=== PATIENT | female | born 2000 | race Two or more races ===

== ENCOUNTER 2024-07-02 10:19 | Outpatient (AMB) | payer MEDICAID, SELFPAY ==
--- NOTE | 2024-07-02 10:29 | ACNOTE_ITS ---
Vital Signs 07/02/24 10:30 Height 1.75 m Height Method Stated Weight 108.012 kg Weight Measurement Method Standing Scale BMI 35.2 BP 105/68 Blood Pressure Source Automatic Cuff Blood Pressure Location Left Upper Arm Position Sitting Respiration 18 Pulse 97 Pulse Source Monitor Temp 98.7 F Temp Source Oral Pulse Oximetry (%) 99 Oxygen Delivery Method Room Air Allergies/Meds Allergies & Medications Allergies infliximab-dyyb Allergy (Severe, Verified 07/22/24 14:34) Difficulty Breathing Medication Reconciliation pantoprazole 40 mg granules delayed-release for susp in packet (Protonix) 40 mg PO QDAY #30 ea 05/01/22 [Rx Confirmed 07/02/24] azathioprine 50 mg tablet 50 mg PO QDAY #30 tabs 05/20/24 [Rx Confirmed 07/02/24] folic acid 1 mg tablet 1 mg PO QDAY #30 tabs 05/20/24 [Rx Confirmed 07/02/24] mesalamine 500 mg capsule,extended release (Pentasa) 500 mg PO TID 05/26/24 [History Confirmed 07/02/24] vedolizumab 300 mg intravenous solution (Entyvio) 300 mg IV .[id number] Ulcerative Colitis #1 ea 07/22/24 [Rx] MA Intake Visit Data Collection New Patient or Established: Established Patient (seen at [facility] within 3 years) Seen by Clinical Staff ONLY (RN/MA): No Pain Present Currently: No Pain scale:: 0 Pain Scale Used: Acevedo-Jett/Numerical PCP or OBGYN visit in last 3 months: Yes Do You Feel Safe at Home: Yes Authorities Contacted: N/A Smoking Status Smoking Status: Never smoker Immunization / Flu Flu Vaccine in the Last 12 Months: No Flu Vaccine Exclusion Criteria: No Exclusion Criteria Past Medical History Past Medical History NEUROLOGIC: Negative Neurological Disorders or Seizures CARDIAC: Negative Cardiac Disorders, Myocardial Infarction, Cardiac Arrhythmia, Atrial Fibrillation, Angina, Heart Murmur, Coronary Artery Disease, Atherosclerotic Heart Disease, Peripheral Vascular Disease, Hypercholesterolemia, Aneurysm, Congestive Heart Failure, Congenital Heart Disease, Valvular Heart Disease, Rheumatic Fever, Cardiomyopathy, Edema, Pericarditis, Cellulitis, Deep Vein Thrombosis, Hypertension, Hypotension or Varicose Veins RESPIRATORY: Negative Chronic Obstructive Pulmonary Disease (COPD) or Asthma GASTROINTESTINAL: Positive Gastrointestinal Disorders, Gastrointestinal Bleed, Ulcerative Colitis, Irritable Bowel and Obesity; Negative Hepatitis, Cirrhosis, Pancreatitis, Celiac Disease, Gall Bladder Disease, Esophageal Varices, Hernandez's Esophagus, Colitis, Diverticulitis, Diverticulosis, Ulcer, Colorectal Cancer, Crohn's Disease, Obstructive Bowel, Hiatal Hernia, Hemorrhoids or Gastroesophageal Reflux Disease GENITOURINARY: Negative Genitourinary Disorders, Renal Disease, Kidney Stones, Polycystic Kidney Disease, Neurogenic Bladder, Inguinal Hernia, Dialysis, Prostate Cancer or Benign Prostatic Hyperplasia REPRODUCTIVE: Negative Breast Cancer, Pelvic Inflammatory Disease or Testicular Cancer MUSCULOSKELETAL: Negative Bone Cancer ENT: Negative Cataracts, Glaucoma, Blind, Retinal Detachment, Macular Degeneration, Ear Infection, Deafness or Eye Prosthesis ENDOCRINE: Positive Endocrine Disorders and Hypothyroidism; Negative Diabetes Mellitus Type 1, Diabetes Mellitus Type 2, Hypoglycemia, Grovespring's Syndrome, Cheyenne's Disease, Hyperthyroidism, Parathyroid Disease, Pituitary Disease, Systemic Lupus Erythematosus, Syndrome of Inappropriate Antidiuretic Hormone (SIADH), Adrenal Disease or Graves' Disease HEMATOLOGIC: Positive Blood Disorders and Anemia; Negative Leukemia, Hemophilia, Thalassemia, Sickle Cell Disease or Clotting Problems PSYCHO/SOCIAL: Positive Anxiety OTHER HISTORY: Positive Hospitalization and Blood Transfusions; Negative Down Syndrome, Developmental Delay, Shingles, Falls, Blood Transfusion Reaction, Anesthesia Reactions, Organ Transplant, Chemotherapy, Radiation Therapy, Hyperbaric Therapy, MRSA, VRSA, Vancomycin-Resistant Enterococci, Human Immunodeficiency Virus (HIV), Chicken Pox, Measles, Mumps, Rubella (Mauritian Measles), Pertussis, Clostridium Difficile, Cancer, Breast Cancer, Cervical Cancer, Colorectal Cancer, Lung Cancer, Ovarian Cancer, Prostate Cancer or Testicular Cancer Family History FAMILY HISTORY: Negative Family Psychiatric Problems, Family Respiratory Disorders, Family Cardiac Disorders, Family Gastrointestinal Problems, Family Cancer, Family Surgery or Family Anesthesia Reaction Surgical History SURGICAL: Positive Section; Negative Cardiac Surgery, Pacemaker, Endocrine Surgery, Ear Surgery, Eye Surgery, Nose Surgery, Oral Surgery, Throat Surgery, Abdominal Surgery, Nephrectomy, Transurethral Resection, Joint Replacement, Neurologic Surgery, Brain Shunt, Mastectomy, Lumpectomy, Hysterectomy, Tubal Ligation, Vasectomy or Organ Transplant Social History SMOKING STATUS: Smoking status: Never smoker SECOND HAND EXPOSURE: second hand exposure: No ALCOHOL: Alcohol Intake: Never HOUSING: Housing: House LIVES WITH: Lives With: Spouse Patient Portal [employer] Social History Living Situation History Housing: House Housing Other:: Pt from home Tobacco History Smoking Status: Never smoker Second Hand Smoke Exposure: No Alcohol History Alcohol Intake: Never Domestic Abuse History Do You Feel Safe at Home: Yes Review of Systems Report any current symptoms Only answer those that you have currently: Past Medical History Past Medical History Have you ever been diagnosed with any of the following: Neurological Problems Seizures: No Cardiology Problems Myocardial Infarction: No Cardiac Arrhythmia: No Atrial Fibrillation: No Angina: No Heart Murmur: No Coronary Artery Disease: No Atherosclerotic Heart Disease: No Peripheral Vascular Disease: No Hypercholesterolemia: No Aneurysm: No Congestive Heart Failure: No Congenital Heart Disease: No Valvular Heart Disease: No Rheumatic Fever: No Cardiomyopathy: No Edema: No Pericarditis: No Cellulitis: No Deep Vein Thrombosis: No Hypertension: No Hypotension: No Varicose Veins: No Respiratory Problems Chronic Obstructive Pulmonary Disease (COPD): No Asthma: No Stomache/Intestinal Problems Hepatitis: No Cirrhosis: No Pancreatitis: No Celiac Disease: No Gall Bladder Disease: No Gastrointestinal Bleed: Yes Esophageal Varices: No Hernandez's Esophagus: No Colitis: No Ulcerative Colitis: Yes Diverticulitis: No Diverticulosis: No Ulcer: No Colorectal Cancer: No Irritable Bowel: Yes Crohn's Disease: No Obstructive Bowel: No Hiatal Hernia: No Hemorrhoids: No Gastroesophageal Reflux Disease: No Obesity: Yes Genital/Urinary Problems Renal Disease: No Kidney Stones: No Polycystic Kidney Disease: No Neurogenic Bladder: No Inguinal Hernia: No Dialysis: No Prostate Cancer: No Benign Prostatic Hyperplasia: No Reproductive Problems Breast Cancer: No Pelvic Inflammatory Disease: No Testicular Cancer: No Musculoskeletal Problems Bone Cancer: No Head,Eye,Nose,Throat Problems Cataracts: No Glaucoma: No Blind: No Retinal Detachment: No Macular Degeneration: No Chronic Ear Infections: No Deafness: No Eye Prosthesis: No Endocrine Problems Diabetes Mellitus Type 1: No Diabetes Mellitus Type 2: No Hypoglycemia: No Alla's Syndrome: No Cheyenne's Disease: No Hyperthyroidism: No Hypothyroidism: Yes Parathyroid Disease: No Pituitary Disease: No Systemic Lupus Erythematosus: No Syndrome of Inappropriate Antidiuretic Hormone: No Adrenal Disease: No Graves' Disease: No Blood Problems Anemia: Yes Leukemia: No Hemophilia: No Thalassemia: No Sickle Cell Disease: No Clotting Problems: No Psychologic Problems Anxiety: Yes Other Problems Hospitalization: Yes Down Syndrome: No Developmental Delay: No Shingles: No Falls: No Blood Transfusions: Yes Blood Transfusion Reaction: No Anesthesia Reactions: No Organ Transplant: No Chemotherapy: No Radiation Therapy: No Hyperbaric Therapy: No MRSA: No VRSA: No Vancomycin-Resistant Enterococci: No Human Immunodeficiency Virus (HIV): No Chicken Pox: No Measles: No Mumps: No Rubella (Mauritian Measles): No Pertussis: No Clostridium Difficile: No Cancer: No Cervical Cancer: No Lung Cancer: No Ovarian Cancer: No Surgical History Hysterectomy: No Pacemaker: No History of Present Illness HPI Narrative Patient is a 23-year-old female with a past medical history of UC and chronic anemia who is here to follow-up on labs secondary to a chief complaint of amenorrhea. Patient stated she recently had her menstrual period and was regular. Previous concern for amenorrhea from April to may and nearly time Entyvio infusions began. UC has also improved currently having solid stools with decreased hematochezia. Patient reports solid stools with some blood streaks about once per day. Initial diagnosis of UC in March 2022. [facility] made recent referral for patient for gastroenterology, next appointment 10/2024 in [place]. Patient is concerned as she has not heard back for her next Entyvio infusion. Previous infusion June 09, 2024 which patient completed. Thus patient has completed a total of 4 infusions. Currently being spaced out every 8 weeks. Patient encouraged to follow-up with [facility] and schedule next appointment, 8 weeks from June 09, 2024. Review of Systems Review of Systems Narrative Review of Systems: General appearance: NO weight change, NO fatigue, NO weakness, NO fever, NO chills, NO night sweats, No cough Skin: NO rash, NO itching, NO sores, NO moles HEENT: NO Trauma, NO nausea, NO vomiting, NO visual changes, NO blurry vision, NO double vision, NO tinnitus, NO vertigo, NO ear discharge, NO rhinorrhea, NO stuffiness, NO sneezing, NO allergy, NO epistaxis. NO Hoarseness, NO sore thr oat, NO swollen neck. Cardiac: NO Palpitations, NO dyspnea on exertion, NO orthopnea, NO paroxysmal nocturnal dyspnea, NO edema Respiratory: NO Shortness of Breath, NO Wheezing, NO Cough, NO Sputum, NO hemoptysis GI:NO appetite, NO nausea, NO vomiting, NO dysphagia, NO changes in bowel frequency, NO stool color, NO diarrhea, NO constipation, NO hemetemesis, NO hemorrhoids, NO melena, NO hematechezia, NO abdominal pain, NO jaundice Renal: NO frequency, NO hesitancy, NO urgency, NO hematuria, NO nocturia, NO incontinence MSK: NO muscle weakness, NO gout, NO arthritis, NO muscle stiffness Neuro: NO headaches, NO tremors, NO weakness, NO paralysis, NO seizures, NO loss of consciousness, NO numbness. Hem: NO anemia, NO easy bruising/bleeding, NO petechiae, NO purpura Endo: NO heat/cold intolerance, NO excessive sweating, NO polyuria, NO polydipsia, NO polyphagia, YES thyroid problems-previously on levo, NO diabetes Pysch: NO mood, NO anxiety, NO depression Objective/Exam Narrative Physical exam: Vitals: T 98.7, BP 105/68, HR 97, RR 18, spO2 99 General Appearance: Alert and Orientated x3, well-nourished female who is sitting on exam room Thorax/Lungs: Symmetrical with good expansion. Chest and back non-tender. Lungs resonant to percussion. Breath sounds vesicular without crackles, wheezes, or rhonchi Cardiovascular/Peripheral Vascular: No jugular venous distention noted. S1 and S2 heart sounds regular, no murmurs or extra heart sounds auscultated. No peripheral edema noted. Abdomen: Bowel sounds are active. No tenderness to deep or light palpation. Assessment & Plan Diagnosis / Problem List (1) Ulcerative colitis: Status: Acute Qualifiers: Digestive disease complication type: with rectal bleeding Ulcerative colitis location: other ulcerative colitis Qualified Code(s): K51.811 - Other ulcerative colitis with rectal bleeding Assessment & Plan: Improved symptoms of UC with only streaks of stool vs hematochezia and formed stools now since starting Entyvio, Azathioprine, and Mesalamine. Patient is still taking all medication as prescribed. Patient has had 4 infusions in total with most recent on Jun 09, 2024. Neto working on establishing care with layout mechanic in [facility], scheduled appointment for 10/08/2024. Patient is concerned that new appointment for Entyvio has not been scheduled. Plan: -Scheduled over the phone appointment with Dr. Kaufman to confirm Entyvio, August 2024 -Advised patient to follow up with [facility] and call first to confirm in appointment, please call with update. (2) Amenorrhea: Status: Acute Assessment & Plan: Less likely this is primary amenorrhea as patient has regular periods before and only had about 1.5 months without a regular menstrual cycle which occured near UC flare. Entyvio (Vedolizumab) less likely as this is not a common side effect. Secondary causes such as Pituitary, PCOS vs Prolactinemia less likely as LH, TSH, Testosterone, Prolactin levels all within normal range. Patient does have a previous history of thyroid problems, per patient history was on Levothyroxine at one but discontinued by previous primary care provider. March 2024 reading of elevated TSH (7.960) and TSH (05/21/2024) of 3.340. Follow up with free T4 as hypothyroidism can not be ruled out as a cause of Amenorrhea. Plan: -Free T4 ordered Additional Assessment - The patient's plan was discussed with attending Dr. Anita Morrow MD PGY1 Internal Medicine Attending note: I, Alexis Howard MD, attest that I was physically present for the storey portions of the service and evaluated the patient with the resident and I reviewed and discussed the case with the resident and agree with the resident's findings and plans of care as documented above. Follow-up visit. Patient had menstrual cycle recently which seem normal. Previously had amenorrhea from April to May. This was the time when her Entyvio infusions began. Lab workup for amenorrhea essentially unremarkable though TSH mildly raised at 3.34. We will recheck a free T4. Noting improvement in bowel movements with solid stools and decreased hematochezia. Most recent infusion on June 09, 2024. Next infusion will be 8 weeks from this date. Resident physicians to coordinate with [facility] to ensure that this is given; however, the patient might be able to be transition to Entyvio injections at home. Alexis Howadr MD Physician Billing Established Patient Established Patient: E/M Level 3-CPT 56946 Office Procedures [facility] Level of Care Nursing/Assessment Patient Status: Established Patient Nursing Assessment/Reassessment: Medication Reconciliation, Update PMH in EMR and Vital Signs Coordination of Care: Complex Care and Chronic Disease 1-5, Education Complex Pt/Fam, Results/Orders obtained and Staff clarify orders Established Patient Charge Established Patient Point Assignment: 90 Established Patient Point Charge: Level 3 (80-115)
[2024-07-02 10:30] VITALS: BP 105/68; PULSE 97; RESP 18; TEMP 37.1; O2SAT 99; BMI 35.2
== END 2024-07-02 11:34 | disposition home or self-care (01) ==
LOC: HODAHC 10:19
PROVIDERS: Supervising Provider Internal Medicine
DX: K51.811 Other ulcerative colitis with rectal bleeding (principal); N91.2 Amenorrhea, unspecified
CPT/HCPCS: 99213; G0463

== ENCOUNTER 2024-07-22 14:33 | Outpatient (AMB) | payer MEDICAID, SELFPAY ==
--- NOTE | 2024-07-22 14:34 | ACNOTE_ITS ---
Allergies/Meds Allergies & Medications Allergies infliximab-dyyb Allergy (Severe, Verified 07/22/24 14:34) Difficulty Breathing MA Intake Visit Data Collection New Patient or Established: Established Patient (seen at [facility] within 3 years) Seen by Clinical Staff ONLY (RN/MA): No Pain Present Currently: No Pain scale:: 0 PCP or OBGYN visit in last 3 months: Yes Smoking Status Smoking Status: Never smoker For Televisit only Telemed Video/Phone Visit: Yes Verbal consent obtained for Telemed visit?: Yes Verbal Consent witness name: sheldon Telemed Video/Phone visit w/Clinical Staff: 21-30 min Immunization / Flu Flu Vaccine in the Last 12 Months: No Flu Vaccine Exclusion Criteria: Already Received Past Medical History Past Medical History NEUROLOGIC: Negative Neurological Disorders or Seizures CARDIAC: Negative Cardiac Disorders, Myocardial Infarction, Cardiac Arrhythmia, Atrial Fibrillation, Angina, Heart Murmur, Coronary Artery Disease, Atherosclerotic Heart Disease, Peripheral Vascular Disease, Hypercholesterolemia, Aneurysm, Congestive Heart Failure, Congenital Heart Disease, Valvular Heart Disease, Rheumatic Fever, Cardiomyopathy, Edema, Pericarditis, Cellulitis, Deep Vein Thrombosis, Hypertension, Hypotension or Varicose Veins RESPIRATORY: Negative Chronic Obstructive Pulmonary Disease (COPD) or Asthma GASTROINTESTINAL: Positive Gastrointestinal Disorders, Gastrointestinal Bleed, Ulcerative Colitis, Irritable Bowel and Obesity; Negative Hepatitis, Cirrhosis, Pancreatitis, Celiac Disease, Gall Bladder Disease, Esophageal Varices, Hernandez's Esophagus, Colitis, Diverticulitis, Diverticulosis, Ulcer, Colorectal Cancer, Crohn's Disease, Obstructive Bowel, Hiatal Hernia, Hemorrhoids or Gastroesophageal Reflux Disease GENITOURINARY: Negative Genitourinary Disorders, Renal Disease, Kidney Stones, Polycystic Kidney Disease, Neurogenic Bladder, Inguinal Hernia, Dialysis, Prostate Cancer or Benign Prostatic Hyperplasia REPRODUCTIVE: Negative Breast Cancer, Pelvic Inflammatory Disease or Testicular Cancer MUSCULOSKELETAL: Negative Bone Cancer ENT: Negative Cataracts, Glaucoma, Blind, Retinal Detachment, Macular Degeneration, Ear Infection, Deafness or Eye Prosthesis ENDOCRINE: Positive Endocrine Disorders and Hypothyroidism; Negative Diabetes Mellitus Type 1, Diabetes Mellitus Type 2, Hypoglycemia, Alla's Syndrome, Barren's Disease, Hyperthyroidism, Parathyroid Disease, Pituitary Disease, Systemic Lupus Erythematosus, Syndrome of Inappropriate Antidiuretic Hormone (SIADH), Adrenal Disease or Graves' Disease HEMATOLOGIC: Positive Blood Disorders and Anemia; Negative Leukemia, Hemophilia, Thalassemia, Sickle Cell Disease or Clotting Problems PSYCHO/SOCIAL: Positive Anxiety OTHER HISTORY: Positive Hospitalization and Blood Transfusions; Negative Down Syndrome, Developmental Delay, Shingles, Falls, Blood Transfusion Reaction, Anesthesia Reactions, Organ Transplant, Chemotherapy, Radiation Therapy, Hyperbaric Therapy, MRSA, VRSA, Vancomycin-Resistant Enterococci, Human Immunodeficiency Virus (HIV), Chicken Pox, Measles, Mumps, Rubella (Burkinan Measles), Pertussis, Clostridium Difficile, Cancer, Breast Cancer, Cervical Cancer, Colorectal Cancer, Lung Cancer, Ovarian Cancer, Prostate Cancer or Testicular Cancer Family History FAMILY HISTORY: Negative Family Psychiatric Problems, Family Respiratory Disorders, Family Cardiac Disorders, Family Gastrointestinal Problems, Family Cancer, Family Surgery or Family Anesthesia Reaction Surgical History SURGICAL: Positive Section; Negative Cardiac Surgery, Pacemaker, Endocrine Surgery, Ear Surgery, Eye Ortiz rgery, Nose Surgery, Oral Surgery, Throat Surgery, Abdominal Surgery, Nephrectomy, Transurethral Resection, Joint Replacement, Neurologic Surgery, Brain Shunt, Mastectomy, Lumpectomy, Hysterectomy, Tubal Ligation, Vasectomy or Organ Transplant Social History SMOKING STATUS: Smoking status: Never smoker SECOND HAND EXPOSURE: second hand exposure: No ALCOHOL: Alcohol Intake: Never HOUSING: Housing: House LIVES WITH: Lives With: Spouse Patient Eduardo Bates Social History Living Situation History Housing: House Housing Other:: Pt from home Tobacco History Smoking Status: Never smoker Second Hand Smoke Exposure: No Alcohol History Alcohol Intake: Never Review of Systems Report any current symptoms Only answer those that you have currently: Past Medical History Past Medical History Have you ever been diagnosed with any of the following: Neurological Problems Seizures: No Cardiology Problems Myocardial Infarction: No Cardiac Arrhythmia: No Atrial Fibrillation: No Angina: No Heart Murmur: No Coronary Artery Disease: No Atherosclerotic Heart Disease: No Peripheral Vascular Disease: No Hypercholesterolemia: No Aneurysm: No Congestive Heart Failure: No Congenital Heart Disease: No Valvular Heart Disease: No Rheumatic Fever: No Cardiomyopathy: No Edema: No Pericarditis: No Cellulitis: No Deep Vein Thrombosis: No Hypertension: No Hypotension: No Varicose Veins: No Respiratory Problems Chronic Obstructive Pulmonary Disease (COPD): No Asthma: No Stomache/Intestinal Problems Hepatitis: No Cirrhosis: No Pancreatitis: No Celiac Disease: No Gall Bladder Disease: No Gastrointestinal Bleed: Yes Esophageal Varices: No Hernandez's Esophagus: No Colitis: No Ulcerative Colitis: Yes Diverticulitis: No Diverticulosis: No Ulcer: No Colorectal Cancer: No Irritable Bowel: Yes Crohn's Disease: No Obstructive Bowel: No Hiatal Hernia: No Hemorrhoids: No Gastroesophageal Reflux Disease: No Obesity: Yes Genital/Urinary Problems Renal Disease: No Kidney Stones: No Polycystic Kidney Disease: No Neurogenic Bladder: No Inguinal Hernia: No Dialysis: No Prostate Cancer: No Benign Prostatic Hyperplasia: No Reproductive Problems Breast Cancer: No Pelvic Inflammatory Disease: No Testicular Cancer: No Musculoskeletal Problems Bone Cancer: No Head,Eye,Nose,Throat Problems Cataracts: No Glaucoma: No Blind: No Retinal Detachment: No Macular Degeneration: No Chronic Ear Infections: No Deafness: No Eye Prosthesis: No Endocrine Problems Diabetes Mellitus Type 1: No Diabetes Mellitus Type 2: No Hypoglycemia: No [place]'s Syndrome: No Evans's Disease: No Hyperthyroidism: No Hypothyroidism: Yes Parathyroid Disease: No Pituitary Disease: No Systemic Lupus Erythematosus: No Syndrome of Inappropriate Antidiuretic Hormone: No Adrenal Disease: No Graves' Disease: No Blood Problems Anemia: Yes Leukemia: No Hemophilia: No Thalassemia: No Sickle Cell Disease: No Clotting Problems: No Psychologic Problems Anxiety: Yes Other Problems Hospitalization: Yes Down Syndrome: No Developmental Delay: No Shingles: No Falls: No Blood Transfusions: Yes Blood Transfusion Reaction: No Anesthesia Reactions: No Organ Transplant: No Chemotherapy: No Radiation Therapy: No Hyperbaric Therapy: No MRSA: No VRSA: No Vancomycin-Resistant Enterococci: No Human Immunodeficiency Virus (HIV): No Chicken Pox: No Measles: No Mumps: No Rubella (Burkinan Measles): No Pertussis: No Clostridium Difficile: No Cancer: No Cervical Cancer: No Lung Cancer: No Ovarian Cancer: No Surgical History Hysterectomy: No Pacemaker: No History of Present Illness HPI Narrative HPI: 23-year-old female with past medical history of ulcerative colitis and chronic anemia [facility]U of her UC after her second Entyvio infusion on 04/28/2024. Patient states she is doing better and has noticed an improvement in her symptoms, no side effects until now with Entyvio infusion. She states still having 2 BM over night and around 4-6 BM during the day, but none have been watery or loose. She is due for the next Entyvio infusion on 05/26/2024 and every 8 weeks there after. She also mentioned she has not had a menstrual period since March 23, 2024. She is sexually active with 1 male partner and uses condoms consistently. She also had a previous PAP smear in March in which everything was okay per patient. She endorses some nausea today and abdominal pain whiling having a BM, but states has not had pelvic pain, increased urinary frequency, burning sensation during urination, or new stressors in her life. 07/22/2024: Patient scheduled an appointment for a tele-consult. Patient reported that she has been having multiple bowel movements with fresh bright red blood. Patient stated that she also has experienced abdominal pain with every bowel movement and seen fresh blood in her stool every time from last 2 weeks. Patient also reported that she has to wake up at night more than 3 times for passing bowel movements. She has been also feeling fatigued out. Patient was explained that she would need to call [facility] for getting a hold on her Entyvio infusions as she is due for her next infusion on August 04, 2024. Additionally, we ordered CBC to follow-up and evaluate for blood loss. Will likely follow the CBC results tomorrow. Patient was given a referral for repair welder at [place] for close follow-up. Review of Systems Review of Systems Systems Reviewed: All systems reviewed, normal except as documented Objective/Exam Narrative Physical exam: Phone consult Assessment & Plan Diagnosis / Problem List (1) Ulcerative colitis: Status: Acute Qualifiers: Digestive disease complication type: with rectal bleeding Ulcerative colitis location: other ulcerative colitis Qualified Code(s): K51.811 - Other ulcerative colitis with rectal bleeding Assessment & Plan: #Ulcerative colitis ? Patient has been passing more than 3 bowel movements at night and noticed bright blood in her stool from last 2 weeks. She was also endorsing abdominal pain associated with each bowel movement. She was feeling fatigability and generalized weakness. Plan: ? Prescription for him to be infusion given for August 04, 2024 as patient is due for her next dose ? Patient was advised to follow up with [facility] regarding her into the infusion ? Psychology Physician referral given for GI specialist in [place] ?will likely consider steroid therapy if she is going in flare and will follow- up on CBC ?Continue Entyvio infusion on 05/26/2024 then every 8 weeks ?Continue Pentasa, azathioprine, and protonix -Refilled azathioprine (2) Microcytic hypochromic anemia: Status: Chronic Assessment & Plan: # Microcytic hypochromic anemia ?Last hemoglobin seen on chart review 04/14/2024: 10.6 Plan: ?Follow-up on CBC ordered today. ?Continue folic acid -Refilled folic acid Patient was discussed with attending physician, Dr. Marty Hager MD, PGY 2 Orders: Orders CBC 07/22/24 D50.9 - Iron deficiency anemia, unspecified, K51.811 - Other ulcerative colitis with rectal bleeding Referrals Gastroenterology D50.9 - Iron deficiency anemia, unspecified, K51.811 - Other ulcerative colitis with rectal bleeding Office Procedures [facility] Level of Care Nursing/Assessment Patient Status: Established Patient Nursing Assessment/Reassessment: Medication Reconciliation and Update PMH in EMR Coordination of Care: Complex Care and Chronic Disease 1-5, Education Complex Pt/Fam and Staff clarify orders Established Patient Charge Established Patient Point Assignment: 70 Telehealth Telemed Phone/Video with patient at home & Dr,PA,SIGNAL MAINTAINER HELPER: Yes
== END 2024-07-22 15:41 | disposition home or self-care (01) ==
LOC: HODAHC 14:33
PROVIDERS: Supervising Provider Internal Medicine; Visit Provider Student in an Organized Health Care Education/Training Program
DX: K51.911 Ulcerative colitis, unspecified with rectal bleeding (principal); D50.9 Iron deficiency anemia, unspecified
CPT/HCPCS: 99212; G0463

== ENCOUNTER 2024-08-12 14:28 | Outpatient (AMB) | payer MEDICAID, SELFPAY ==
--- NOTE | 2024-08-12 15:27 | ACNOTE_ITS ---
Allergies/Meds Allergies & Medications Allergies infliximab-dyyb Allergy (Severe, Verified 08/12/24 15:27) Difficulty Breathing Medication Reconciliation pantoprazole 40 mg granules delayed-release for susp in packet (Protonix) 40 mg PO QDAY #30 ea 05/01/22 [Rx Confirmed 08/12/24] azathioprine 50 mg tablet 50 mg PO QDAY #30 tabs 05/20/24 [Rx Confirmed 08/12/24] folic acid 1 mg tablet 1 mg PO QDAY #30 tabs 05/20/24 [Rx Confirmed 08/12/24] mesalamine 500 mg capsule,extended release (Pentasa) 500 mg PO TID 05/26/24 [History Confirmed 08/12/24] vedolizumab 300 mg intravenous solution (Entyvio) 300 mg IV .[id number] Ulcerative Colitis #1 ea 07/22/24 [Rx Confirmed 08/12/24] MA Intake Visit Data Collection New Patient or Established: Established Patient (seen at [facility] within 3 years) Seen by Clinical Staff ONLY (RN/MA): No Pain Present Currently: No Pain scale:: 0 Pain Scale Used: Acevedo-Jett/Numerical Campground Caretaker Required: No PCP or OBGYN visit in last 3 months: Yes Do You Feel Safe at Home: Yes Authorities Contacted: N/A Smoking Status Smoking Status: Never smoker For Televisit only Telemed Video/Phone Visit: Yes Verbal consent obtained for Telemed visit?: Yes Verbal Consent witness name: Fidelina Telemed Video/Phone visit w/Clinical Staff: 21-30 min Immunization / Flu Flu Vaccine in the Last 12 Months: No Flu Vaccine Exclusion Criteria: No Exclusion Criteria Past Medical History Past Medical History NEUROLOGIC: Negative Neurological Disorders or Seizures CARDIAC: Negative Cardiac Disorders, Myocardial Infarction, Cardiac Arrhythmia, Atrial Fibrillation, Angina, Heart Murmur, Coronary Artery Disease, Atherosclerotic Heart Disease, Peripheral Vascular Disease, Hypercholesterolemia, Aneurysm, Congestive Heart Failure, Congenital Heart Disease, Valvular Heart Disease, Rheumatic Fever, Cardiomyopathy, Edema, Pericarditis, Cellulitis, Deep Vein Thrombosis, Hypertension, Hypotension or Varicose Veins RESPIRATORY: Negative Chronic Obstructive Pulmonary Disease (COPD) or Asthma GASTROINTESTINAL: Positive Gastrointestinal Disorders, Gastrointestinal Bleed, Ulcerative Colitis, Irritable Bowel and Obesity; Negative Hepatitis, Cirrhosis, Pancreatitis, Celiac Disease, Gall Bladder Disease, Esophageal Varices, Hrenandez's Esophagus, Colitis, Diverticulitis, Diverticulosis, Ulcer, Colorectal Cancer, Crohn's Disease, Obstructive Bowel, Hiatal Hernia, Hemorrhoids or Gastroesophageal Reflux Disease GENITOURINARY: Negative Genitourinary Disorders, Renal Disease, Kidney Stones, Polycystic Kidney Disease, Neurogenic Bladder, Inguinal Hernia, Dialysis, Prostate Cancer or Benign Prostatic Hyperplasia REPRODUCTIVE: Negative Breast Cancer, Pelvic Inflammatory Disease or Testicular Cancer MUSCULOSKELETAL: Negative Bone Cancer ENT: Negative Cataracts, Glaucoma, Blind, Retinal Detachment, Macular Degeneration, Ear Infection, Deafness or Eye Prosthesis ENDOCRINE: Positive Endocrine Disorders and Hypothyroidism; Negative Diabetes Mellitus Type 1, Diabetes Mellitus Type 2, Hypoglycemia, Alla's Syndrome, [place]'s Disease, Hyperthyroidism, Parathyroid Disease, Pituitary Disease, Systemic Lupus Erythematosus, Syndrome of Inappropriate Antidiuretic Hormone (SIADH), Adrenal Disease or Graves' Disease HEMATOLOGIC: Positive Blood Disorders and Anemia; Negative Leukemia, Hemophilia, Thalassemia, Sickle Cell Disease or Clotting Problems PSYCHO/SOCIAL: Positive Anxiety OTHER HISTORY: Positive Hospitalization and Blood Transfusions; Negative Down Syndrome, Developmental Delay, Shingles, Falls, Blood Transfusion Reaction, Anesthesia Reactions, Organ Transplant, Chemotherapy, Radiation Therapy, Hyperbaric Therapy, MRSA, VRSA, Vancomycin-Resistant Enterococci, Human Immunodeficiency Virus (HIV), Chicken Pox, Measles, Mumps, Rubella (Tamazight Measles), Pertussis, Clostridium Difficile, Cancer, Breast Cancer, Cervical Cancer, Colorectal Cancer, Lung Cancer, Ovarian Cancer, Prostate Cancer or Testicular Cancer Family History FAMILY HISTORY: Negative Family Psychiatric Problems, Family Respiratory Disorders, Family Cardiac Disorders, Family Gastrointestinal Problems, Family Cancer, Family Surgery or Family Anesthesia Reaction Surgical History SURGICAL: Positive Section; Negative Cardiac Surgery, Pacemaker, Endocrine Surgery, Ear Surgery, Eye Surger y, Nose Surgery, Oral Surgery, Throat Surgery, Abdominal Surgery, Nephrectomy, Transurethral Resection, Joint Replacement, Neurologic Surgery, Brain Shunt, Mastectomy, Lumpectomy, Hysterectomy, Tubal Ligation, Vasectomy or Organ Transplant Social History SMOKING STATUS: Smoking status: Never smoker SECOND HAND EXPOSURE: second hand exposure: No ALCOHOL: Alcohol Intake: Never HOUSING: Housing: House LIVES WITH: Lives With: Spouse Patient Eduardo Bates Social History Living Situation History Housing: House Housing Other:: Pt from home Tobacco History Smoking Status: Never smoker Second Hand Smoke Exposure: No Alcohol History Alcohol Intake: Never Domestic Abuse History Do You Feel Safe at Home: Yes Review of Systems Report any current symptoms Only answer those that you have currently: Past Medical History Past Medical History Have you ever been diagnosed with any of the following: Neurological Problems Seizures: No Cardiology Problems Myocardial Infarction: No Cardiac Arrhythmia: No Atrial Fibrillation: No Angina: No Heart Murmur: No Coronary Artery Disease: No Atherosclerotic Heart Disease: No Peripheral Vascular Disease: No Hypercholesterolemia: No Aneurysm: No Congestive Heart Failure: No Congenital Heart Disease: No Valvular Heart Disease: No Rheumatic Fever: No Cardiomyopathy: No Edema: No Pericarditis: No Cellulitis: No Deep Vein Thrombosis: No Hypertension: No Hypotension: No Varicose Veins: No Respiratory Problems Chronic Obstructive Pulmonary Disease (COPD): No Asthma: No Stomache/Intestinal Problems Hepatitis: No Cirrhosis: No Pancreatitis: No Celiac Disease: No Gall Bladder Disease: No Gastrointestinal Bleed: Yes Esophageal Varices: No Hernandez's Esophagus: No Colitis: No Ulcerative Colitis: Yes Diverticulitis: No Diverticulosis: No Ulcer: No Colorectal Cancer: No Irritable Bowel: Yes Crohn's Disease: No Obstructive Bowel: No Hiatal Hernia: No Hemorrhoids: No Gastroesophageal Reflux Disease: No Obesity: Yes Genital/Urinary Problems Renal Disease: No Kidney Stones: No Polycystic Kidney Disease: No Neurogenic Bladder: No Inguinal Hernia: No Dialysis: No Prostate Cancer: No Benign Prostatic Hyperplasia: No Reproductive Problems Breast Cancer: No Pelvic Inflammatory Disease: No Testicular Cancer: No Musculoskeletal Problems Bone Cancer: No Head,Eye,Nose,Throat Problems Cataracts: No Glaucoma: No Blind: No Retinal Detachment: No Macular Degeneration: No Chronic Ear Infections: No Deafness: No Eye Prosthesis: No Endocrine Problems Diabetes Mellitus Type 1: No Diabetes Mellitus Type 2: No Hypoglycemia: No Alla's Syndrome: No [place]'s Disease: No Hyperthyroidism: No Hypothyroidism: Yes Parathyroid Disease: No Pituitary Disease: No Systemic Lupus Erythematosus: No Syndrome of Inappropriate Antidiuretic Hormone: No Adrenal Disease: No Graves' Disease: No Blood Problems Anemia: Yes Leukemia: No Hemophilia: No Thalassemia: No Sickle Cell Disease: No Clotting Problems: No Psychologic Problems Anxiety: Yes Other Problems Hospitalization: Yes Down Syndrome: No Developmental Delay: No Shingles: No Falls: No Blood Transfusions: Yes Blood Transfusion Reaction: No Anesthesia Reactions: No Organ Transplant: No Chemotherapy: No Radiation Therapy: No Hyperbaric Therapy: No MRSA: No VRSA: No Vancomycin-Resistant Enterococci: No Human Immunodeficiency Virus (HIV): No Chicken Pox: No Measles: No Mumps: No Rubella (Tamazight Measles): No Pertussis: No Clostridium Difficile: No Cancer: No Cervical Cancer: No Lung Cancer: No Ovarian Cancer: No Surgical History Hysterectomy: No Pacemaker: No History of Present Illness HPI Narrative 23-year-old female with past medical history of ulcerative colitis and chronic anemia F/U for lab results via telehealth. Patient states she continues to have around 3-4 episodes of diarrhea and 2 episodes of more firm stool every day. She mentioned that these BM are normally bloody. She was due for the next Entyvio infusion on 08/04/2024, but flex care machine feeder raw stock was not available after multiple times trying to get in contact. Her labs were reviewed and will see patient back in two weeks as will be prescribing steroids for likely flare up of UC. Will also get in contact with infusion machine feeder raw stock to schedule next entyvio infusion and will prescribe entyvio pen as prior authorization was approved. Review of Systems Review of Systems Narrative Review of Systems: Constitutional: Denies sweats, Denies weight loss/gain, Denies fever, Denies chills. HEENT: Denies hearing loss, Denies ear pain, Denies postnasal drip, Denies double vision, Denies blurry vision. Respiratory: Denies shortness of breath, Denies cough, Denies wheezing. Cardiovascular: Denies chest pain, Denies palpitations, Denies sudden loss of consciousness. GI: Admits blood in stool, Denies constipation, Denies abdominal pain, Denies difficulty swallowing, Denies nausea or vomit. : Denies urinary incontinence, Denies pain while urinating, Denies increased urinary frequency. MSK: Denies joint pain, Denies joint swelling, Denies numbness. Skin: Denies rash, Denies itching, Denies easy bruising. Neuro: Denies headaches, Denies dizziness, Denies seizures. Objective/Exam Narrative Physical exam: Phone consult Assessment & Plan Diagnosis / Problem List (1) Ulcerative colitis: Status: Acute Qualifiers: Digestive disease complication type: with rectal bleeding Ulcerative colitis location: other ulcerative colitis Qualified Code(s): K51.811 - Other ulcerative colitis with rectal bleeding Assessment & Plan: ? Patient has been having 4-6 bowel movements per day and mostly bloody ?Patient has noticed improvement in her symptoms Plan: ?Continue Entyvio infusion ?Continue Pentasa, azathioprine, and protonix -Refilled pentasa -Started prednisone 40 mg x1 wk, 30mg x1wk , 20mg x1 wk, 10mg x1 wk ?Will follow-up in 2 weeks (2) Microcytic hypochromic anemia: Status: Chronic Assessment & Plan: ?Patient has a HX of anemia -Having bloody stools Plan: ?Continue folic acid -Will follow up on CBC in 2 weeks Office Procedures [facility] Level of Care Nursing/Assessment Patient Status: Established Patient Nursing Assessment/Reassessment: Medication Reconciliation and Update PMH in EMR Coordination of Care: Complex Care and Chronic Disease 1-5, Consent,records obtained, informed consent, Education Simp Pt/Fam, Lab and Imaging orders, Results/Orders obtained and Staff clarify orders Established Patient Charge Established Patient Point Assignment: 90 Telehealth Telemed Phone/Video with patient at home & Dr,PA,RN TELEPHONE TRIAGE: Yes
== END 2024-08-12 15:31 | disposition home or self-care (01) ==
LOC: HODAHC 14:28
PROVIDERS: Supervising Provider Internal Medicine
DX: K51.811 Other ulcerative colitis with rectal bleeding (principal); D50.9 Iron deficiency anemia, unspecified
CPT/HCPCS: 99212; G0463

== ENCOUNTER 2024-08-25 08:50 | Outpatient (RCR) | payer MEDICAID, SELFPAY ==
[2024-08-25 09:10] VITALS: BP 117/79; PULSE 91; RESP 20; TEMP 36.6; O2SAT 100; BMI 34.4
[2024-08-25] MEDS: DiphenhydrAMINE INJ 50 MG/ML VIAL IV (09:33)
[2024-08-25] MEDS: ACETAMINOPHEN 325 MG TABLET 650 MG PO (09:33)
[2024-08-25] MEDS: SODIUM CHLORIDE IV (10:07)
[2024-08-25] MEDS: STERILE WATER IV (10:07)
[2024-08-25] MEDS: VEDOLIZUMAB IV (10:07)
[2024-08-25 11:13] VITALS: BP 116/66; PULSE 85; RESP 20; TEMP 37; O2SAT 100
== END 2024-09-05 23:59 | disposition home or self-care (01) ==
LOC: SFLEX 08:50
PROVIDERS: Referring Provider Student in an Organized Health Care Education/Training Program; Visit Provider Student in an Organized Health Care Education/Training Program
PROC: (CPT 96365; principal; 2024-08-25 09:00)
DX: K51.911 Ulcerative colitis, unspecified with rectal bleeding (principal)
CPT/HCPCS: 96365; 96366; A4216; J1200; J2919; J3380; J7050; A9270

== ENCOUNTER 2024-08-26 13:16 | Outpatient (AMB) | payer MEDICAID, SELFPAY ==
[2024-08-26 13:27] VITALS: BP 113/75; PULSE 96; RESP 18; TEMP 36.5; O2SAT 99; BMI 34.5
--- NOTE | 2024-08-26 13:27 | ACNOTE_ITS ---
Vital Signs 08/26/24 13:27 Height 1.75 m Height Method Stated Weight 106.197 kg Weight Measurement Method Standing Scale BMI 34.5 BP 113/75 Blood Pressure Source Automatic Cuff Blood Pressure Location Left Upper Arm Position Sitting Respiration 18 Pulse 96 Pulse Source Monitor Temp 97.7 F Temp Source Oral Pulse Oximetry (%) 99 Oxygen Delivery Method Room Air Allergies/Meds Allergies & Medications Allergies infliximab-dyyb Allergy (Severe, Verified 08/26/24 13:29) Difficulty Breathing Medication Reconciliation pantoprazole 40 mg granules delayed-release for susp in packet (Protonix) 40 mg PO QDAY #30 ea 05/01/22 [Rx Confirmed 08/26/24] azathioprine 50 mg tablet 50 mg PO QDAY #30 tabs 05/20/24 [Rx Confirmed 08/26/24] folic acid 1 mg tablet 1 mg PO QDAY #30 tabs 05/20/24 [Rx Confirmed 08/26/24] vedolizumab 300 mg intravenous solution (Entyvio) 300 mg IV .[id number] Ulcerative Colitis #1 ea 07/22/24 [Rx Confirmed 08/26/24] mesalamine 500 mg capsule,extended release 500 mg PO BID 1 month #60 caps 08/12/24 [Rx Confirmed 08/26/24] prednisone 10 mg tablet See Taper PO DIRECTED #70 tabs 08/12/24 [Rx Confirmed 08/26/24] MA Intake Visit Data Collection New Patient or Established: Established Patient (seen at [facility] within 3 years) Seen by Clinical Staff ONLY (RN/MA): No Pain Present Currently: No Pain scale:: 0 Pain Scale Used: Acevedo-Jett/Numerical Director Of Rooms Required: No PCP or OBGYN visit in last 3 months: Yes Hx Now: No Do You Feel Safe at Home: Yes Authorities Contacted: N/A Smoking Status Smoking Status: Never smoker Immunization / Flu Flu Vaccine in the Last 12 Months: No Flu Vaccine Exclusion Criteria: No Exclusion Criteria Past Medical History Past Medical History NEUROLOGIC: Negative Neurological Disorders or Seizures CARDIAC: Negative Cardiac Disorders, Myocardial Infarction, Cardiac Arrhythmia, Atrial Fibrillation, Angina, Heart Murmur, Coronary Artery Disease, Atherosclerotic Heart Disease, Peripheral Vascular Disease, Hypercholesterolemia, Aneurysm, Congestive Heart Failure, Congenital Heart Disease, Valvular Heart Disease, Rheumatic Fever, Cardiomyopathy, Edema, Pericarditis, Cellulitis, Deep Vein Thrombosis, Hypertension, Hypotension or Varicose Veins RESPIRATORY: Negative Chronic Obstructive Pulmonary Disease (COPD) or Asthma GASTROINTESTINAL: Positive Gastrointestinal Disorders, Gastrointestinal Bleed, Ulcerative Colitis, Irritable Bowel and Obesity; Negative Hepatitis, Cirrhosis, Pancreatitis, Celiac Disease, Gall Bladder Disease, Esophageal Varices, Hernandez's Esophagus, Colitis, Diverticulitis, Diverticulosis, Ulcer, Colorectal Cancer, Crohn's Disease, Obstructive Bowel, Hiatal Hernia, Hemorrhoids or Gastroesophageal Reflux Disease GENITOURINARY: Negative Genitourinary Disorders, Renal Disease, Kidney Stones, Polycystic Kidney Disease, Neurogenic Bladder, Inguinal Hernia, Dialysis, Prostate Cancer or Benign Prostatic Hyperplasia REPRODUCTIVE: Negative Breast Cancer, Pelvic Inflammatory Disease or Testicular Cancer MUSCULOSKELETAL: Negative Bone Cancer ENT: Negative Cataracts, Glaucoma, Blind, Retinal Detachment, Macular Degeneration, Ear Infection, Deafness or Eye Prosthesis ENDOCRINE: Positive Endocrine Disorders and Hypothyroidism; Negative Diabetes Mellitus Type 1, Diabetes Mellitus Type 2, Hypoglycemia, Denver's Syndrome, Davison's Disease, Hyperthyroidism, Parathyroid Disease, Pituitary Disease, Systemic Lupus Erythematosus, Syndrome of Inappropriate Antidiuretic Hormone (SIADH), Adrenal Disease or Graves' Disease HEMATOLOGIC: Positive Blood Disorders and Anemia; Negative Leukemia, Hemophilia, Thalassemia, Sickle Cell Disease or Clotting Problems PSYCHO/SOCIAL: Positive Anxiety OTHER HISTORY: Positive Hospitalization and Blood Transfusions; Negative Down Syndrome, Developmental Delay, Shingles, Falls, Blood Transfusion Reaction, Anesthesia Reactions, Organ Transplant, Chemotherapy, Radiation Therapy, Hyperbaric Therapy, MRSA, VRSA, Vancomycin-Resistant Enterococci, Human Immunodeficiency Virus (HIV), Chicken Pox, Measles, Mumps, Rubella (Vincentian Measles), Pertussis, Clostridium Difficile, Cancer, Breast Cancer, Cervical Cancer, Colorectal Cancer, Lung Cancer, Ovarian Cancer, Prostate Cancer or Testicular Cancer Family History FAMILY HISTORY: Negative Family Psychiatric Problems, Family Respiratory Disorders, Family Cardiac Disorders, Family Gastrointestinal Problems, Family Cancer, Family Surgery or Family Anesthesia Reaction Surgical History SURGICAL: Positive Section; Negative Cardiac Surgery, Pacemaker, Endocrine Surgery, Ear Surgery, Eye Surgery, Nose Surgery, Oral Surgery, Throat Surgery, Abdominal Surgery, Nephrectomy, Transurethral Resection, Joint Replacement, Neurologic Surgery, Brain Shunt, Mastectomy, Lumpectomy, Hysterectomy, Tubal Ligation, Vasectomy or Organ Transplant Social History SMOKING STATUS: Smoking status: Never smoker SECOND HAND EXPOSURE: second hand exposure: No ALCOHOL: Alcohol Intake: Never HOUSING: Housing: House LIVES WITH: Lives With: Spouse Patient Portal Questionaires Social History Living Situation History Housing: House Housing Other:: Pt from home Tobacco History Smoking Status: Never smoker Second Hand Smoke Exposure: No Alcohol History Alcohol Intake: Never Domestic Abuse History Do You Feel Safe at Home: Yes Review of Systems Report any current symptoms Only answer those that you have currently: Past Medical History Past Medical History Have you ever been diagnosed with any of the following: Neurological Problems Seizures: No Cardiology Problems Myocardial Infarction: No Cardiac Arrhythmia: No Atrial Fibrillation: No Angina: No Heart Murmur: No Coronary Artery Disease: No Atherosclerotic Heart Disease: No Peripheral Vascular Disease: No Hypercholesterolemia: No Aneurysm: No Congestive Heart Failure: No Congenital Heart Disease: No Valvular Heart Disease: No Rheumatic Fever: No Cardiomyopathy: No Edema: No Pericarditis: No Cellulitis: No Deep Vein Thrombosis: No Hypertension: No Hypotension: No Varicose Veins: No Respiratory Problems Chronic Obstructive Pulmonary Disease (COPD): No Asthma: No Stomache/Intestinal Problems Hepatitis: No Cirrhosis: No Pancreatitis: No Celiac Disease: No Gall Bladder Disease: No Gastrointestinal Bleed: Yes Esophageal Varices: No Hernandez's Esophagus: No Colitis: No Ulcerative Colitis: Yes Diverticulitis: No Diverticulosis: No Ulcer: No Colorectal Cancer: No Irritable Bowel: Yes Crohn's Disease: No Obstructive Bowel: No Hiatal Hernia: No Hemorrhoids: No Gastroesophageal Reflux Disease: No Obesity: Yes Genital/Urinary Problems Renal Disease: No Kidney Stones: No Polycystic Kidney Disease: No Neurogenic Bladder: No Inguinal Hernia: No Dialysis: No Prostate Cancer: No Benign Prostatic Hyperplasia: No Reproductive Problems Breast Cancer: No Pelvic Inflammatory Disease: No Testicular Cancer: No Musculoskeletal Problems Bone Cancer: No Head,Eye,Nose,Throat Problems Cataracts: No Glaucoma: No Blind: No Retinal Detachment: No Macular Degeneration: No Chronic Ear Infections: No Deafness: No Eye Prosthesis: No Endocrine Problems Diabetes Mellitus Type 1: No Diabetes Mellitus Type 2: No Hypoglycemia: No Denver's Syndrome: No Davison's Disease: No Hyperthyroidism: No Hypothyroidism: Yes Parathyroid Disease: No Pituitary Disease: No Systemic Lupus Erythematosus: No Syndrome of Inappropriate Antidiuretic Hormone: No Adrenal Disease: No Graves' Disease: No Blood Problems Anemia: Yes Leukemia: No Hemophilia: No Thalassemia: No Sickle Cell Disease: No Clotting Problems: No Psychologic Problems Anxiety: Yes Other Problems Hospitalization: Yes Down Syndrome: No Developmental Delay: No Shingles: No Falls: No Blood Transfusions: Yes Blood Transfusion Reaction: No Anesthesia Reactions: No Organ Transplant: No Chemotherapy: No Radiation Therapy: No Hyperbaric Therapy: No MRSA: No VRSA: No Vancomycin-Resistant Enterococci: No Human Immunodeficiency Virus (HIV): No Chicken Pox: No Measles: No Mumps: No Rubella (Vincentian Measles): No Pertussis: No Clostridium Difficile: No Cancer: No Cervical Cancer: No Lung Cancer: No Ovarian Cancer: No Surgical History Hysterectomy: No Pacemaker: No History of Present Illness HPI Narrative 23-year-old female with past medical history of ulcerative colitis and chronic anemia seen in the [facility] today for follow-up on labs as well as follow-up after Entyvio infusion. Patient got her Entyvio infusion yesterday 08/25/2024 without any complications. She stated that she has been having less bowel movements during the night with only 1 normally and sometimes it is two, but she states that this happens when she eats something that she is not supposed to influence over ulcerative colitis. She also mentioned that she has been having around 4 bowel movements per day with most of them being bloody. Upon review of her labs she was found to have low hemoglobin at 6.3. She stated that she had felt she was starting to get the migraines as well as low energy when she normally gets anemic. At this time I recommended the patient to go to the ER for PRBC transfusion as her hemoglobin was low when she was symptomatic. Patient was accompanied by her child, but she stated that she follow good take care of the child while she was in the ER. She also complains of nausea, but no vomiting. Will see patient back in 1 week with repeat CBC. Spoke with ER at [facility] and stated that the patient would need transfusion due to symptomatic anemia. Review of Systems Review of Systems Narrative Review of Systems: Constitutional: Denies sweats, Denies weight loss/gain, Denies fever, Denies chills, Admits low energy HEENT: Denies hearing loss, Denies ear pain, Denies postnasal drip, Denies double vision, Denies blurry vision. Respiratory: Denies shortness of breath, Denies cough, Denies wheezing. Cardiovascular: Denies chest pain, Denies palpitations, Denies sudden loss of consciousness. GI: Admits blood in stool, Denies constipation, Denies abdominal pain, Denies difficulty swallowing, Admits nausea denies vomit. : Denies urinary incontinence, Denies pain while urinating, Denies increased urinary frequency. MSK: Denies joint pain, Denies joint swelling, Denies numbness. Skin: Denies rash, Denies itching, Denies easy bruising. Neuro: Admits headaches, Denies dizziness, Denies seizures. Objective/Exam General General Appearance: alert, in no apparent distress, comfortable, cooperative and well groomed Head Head exam: atraumatic, normocephalic and normal inspection Eye Eye exam: Present normal appearance, PERRL and EOMI Neck Neck exam: Present normal inspection and full ROM Resp Respiratory exam: Present normal lung sounds bilaterally Card Cardiovascular exam: Present regular rate, normal rhythm and normal heart sounds Abdominal Abdominal exam: Present soft and normal bowel sounds Abdominal tenderness: Present diffuse and mild Extremities Extremities exam: Present normal inspection and full ROM Neuro Neurological exam: Present alert, oriented X3, CN II-XII intact and normal gait Psych Psychiatric exam: Present normal affect and normal mood Assessment & Plan Diagnosis / Problem List (1) Symptomatic anemia: Status: Acute Assessment & Plan: ? Patient has been having migraines as well as feelings of low energy ? CBC showed patient hemoglobin was 6.3 -Most likely associated to bloody stools due to ulcerative colitis. Plan: Plan: ? Recommend the patient to go to the ER due to need of blood transfusions ? Repeat CBC in 1 week (2) Ulcerative colitis: Status: Chronic Qualifiers: Ulcerative colitis location: other ulcerative colitis Digestive disease complication type: with rectal bleeding Qualified Code(s): K51.811 - Other ulcerative colitis with rectal bleeding Assessment & Plan: ? Patient states that she experiencing around 1-2 bowel movements per night, and is usually 1 unless she eats something she knows acute flare of her nausea colitis ? Patient has been having more control of her abdominal symptoms today with 4 out of 4/day, but most of them being bloody Plan: -Patient did not get steroid course last prescribed -Continue pentassa, entyvio, azathiprione, and protonix Office Procedures [facility] Level of Care Nursing/Assessment Patient Status: Established Patient Nursing Assessment/Reassessment: Medication Reconciliation, Update PMH in EMR and Vital Signs Coordination of Care: Complex Care and Chronic Disease 1-5, Consent,records ob tained, informed consent, Education Simp Pt/Fam, Results/Orders obtained and Staff clarify orders Established Patient Charge Established Patient Point Assignment: 90 Established Patient Point Charge: EP Level 3 (80-115)
== END 2024-08-26 13:47 | disposition home or self-care (01) ==
LOC: HODAHC 13:16
PROVIDERS: Supervising Provider Internal Medicine
DX: D64.9 Anemia, unspecified (principal); K51.911 Ulcerative colitis, unspecified with rectal bleeding
CPT/HCPCS: 99213; G0463

== ENCOUNTER 2024-08-26 14:50 | Emergency (ER) | payer MEDICAID, SELFPAY ==
[2024-08-26] VITALS (7 sets, daily range): BP systolic 109–125; BP diastolic 66–77; PULSE 81–104; RESP 17–20; TEMP 36.6–37.4; O2SAT 100; BMI 33.3
--- NOTE | 2024-08-26 15:22 | PD.EDRME ---
Rapid Medical Screening Exam RME Arrival date/time: 08/26/24 14:50 24-year-old female presents to the emergency dept with complaints of rectal bleeding Chief Complaint: GI Bleed Vital signs: Vital Signs Temperature 99.4 F 08/26/24 15:04 Pulse Rate 98 08/26/24 15:04 Respiratory Rate 18 08/26/24 15:04 Blood Pressure 111/66 08/26/24 15:04 Pulse Oximetry (%) 100 08/26/24 15:04 Oxygen Delivery Method Room Air 08/26/24 15:04
[2024-08-26 15:57] LABS: Basophils % (Auto) 0 % (0-2.5); Eosinophils % (Auto) 0 % (0-10); Hematocrit 22.8 % (36.0-46.0); Immature Granulocytes % (Auto) 0 % (0-0); Immature Granulocytes Auto 0.02 Thou/mm3 (0.00-0.00); Lymphocytes # (Auto) 2.7 Thou/mm3 (1.0-4.8); Lymphocytes % (Auto) 30 % (10-50); Mean Corpuscular HGB Conc 26.8 g/dl (31.0-37.0); Mean Corpuscular Hemoglobin 16.9 pg (25.0-35.0); Mean Corpuscular Volume 63 fL (80-100); Monocytes # (Auto) 1.1 Thou/mm3 (0.0-0.8); Monocytes % (Auto) 12 % (0-12); Neutrophils # (Auto) 5.1 Thou/mm3 (1.8-7.7); Neutrophils % (Auto) 56 % (37-80); Nucleated Red Blood Cell % 0 /100 WBC (0); Platelet Count 519 Thou/mm3 (140-440); RDW Standard Deviation 42.5 fL (36.4-46.3)
[2024-08-26 16:09] LABS: Hemoglobin 6.1 g/dL (12.0-16.0)
[2024-08-26 16:15] LABS: Partial Thromboplastin Time 21.6 Seconds (22.0-36.0); Prothrombin Time 11.1 Seconds (9.0-12.2)
[2024-08-26 16:25] LABS: Path Review Blood Smear Sent to Pathologist
[2024-08-26 16:32] LABS: HCG,Qualitative Serum Negative
[2024-08-26 16:41] LABS: Alanine Aminotransferase 8 U/L (10-49); Albumin, Serum 4.1 gm/dL (3.5-5.0); Albumin/Globulin Ratio 1.1 (1.2-2.2); Alkaline Phosphatase 90 U/L (46-116); Anion Gap 9 (7-16); Aspartate Amino Transferase 16 U/L (0-34); BUN/Creatinine Ratio 11 Ratio (12-20); Bilirubin,Total 0.8 mg/dL (0.3-1.2); Blood Urea Nitrogen 10 mg/dL (9-23); Calcium 9.3 mg/dL (8.3-10.6); Calcium (Corrected) 9.3 mg/dL (8.5-10.1); Carbon Dioxide 24.9 mMol/L (20.0-31.0); Chloride 102 mMol/L (98-107); Creatinine (Component) 0.9 mg/dL (0.6-1.3); Estimated Creatinine Clearance 126.6 mL/min (>60); Globulin 3.7 gm/dL (2.3-3.5); Glucose 95 mg/dL (74-106); Osmolality,Calculated 270 (275-295); Potassium 3.9 mMol/L (3.4-5.1); Sodium 136 mMol/L (136-145); Total Protein 7.8 gm/dL (5.7-8.2); eGFR > 60 See Note
--- NOTE | 2024-08-26 17:46 | PD.EDADULT ---
ED General RME/HPI General Chief complaint: GI Bleed Stated complaint: RECTAL BLEEDING x 1YR. SENT FOR LOW HGB TODAY Time Seen by Provider: 08/26/24 17:41 Arrival date/time: 08/26/24 14:50 CC: Rectal bleeding HPI patient referred to us from clinic with a long history of ulcerative colitis and prior transfusions for low hemoglobin of 6.4, the patient is awake alert oriented states she has no specific complaints other than mild fatigue secondary to the anemia. Patient states last transfusion was in April 2024. Patient denies fever chills chest pain shortness of breath, or difficulty breathing. Patient states that she just wants a transfusion and to go home. RME / HPI RME / HPI narrative: 08/26/24 14:50 24-year-old female presents to the emergency dept with complaints of rectal bleeding Related Data Previous Rx's ?Medication ?Instructions ?Recorded pantoprazole 40 mg granules 40 mg PO QDAY #30 ea 05/01/22 delayed-release for susp in packet (Protonix) azathioprine 50 mg tablet 50 mg PO QDAY #30 tabs 05/20/24 folic acid 1 mg tablet 1 mg PO QDAY #30 tabs 05/20/24 vedolizumab 300 mg intravenous 300 mg IV .[id number] Ulcerative 07/22/24 solution (Entyvio) Colitis #1 ea mesalamine 500 mg capsule,extended 500 mg PO BID 1 month #60 caps 08/12/24 release prednisone 10 mg tablet See Taper PO DIRECTED #70 tabs 08/12/24 Entyvio Pen 108 mg/0.68 mL 108 mg (0.68 mL) subcut .q 2 weeks 08/26/24 subcutaneous pen injector Ulcerative Colitis #2 pens (vedolizumab) Allergies Allergy/AdvReac Type Severity Reaction Status Date / Time infliximab-dyyb Allergy Severe Difficulty Verified 08/26/24 14:52 Breathing Review of Systems Review of Systems Narrative Review of Systems: GEN: No fever, no chills, no weight loss EYES: No discharge, no visual changes, no pain HEENT: No ear pain, no congestion, no sore throat PULM: No shortness of breath, no cough, no congestion CV: No chest pain, no dyspnea on exertion, no palpitations GI: No nausea, no vomiting, no diarrhea, no pain, no constipation : No frequency, no urgency, no dysuria MUSC/SKEL: No joint pain, no back pain SKIN: No rash PSYCH: No hallucinations, no depression HEME/LYMPH: No easy bleeding or bruising tendencies NEURO: No weakness, no headache ED Exam Narrative Physical exam: [General: Obese not in cot no acute distress Head normocephalic HEENT: Within acceptable limits Neck is supple nontender Chest equal chest rise nontender to palpation Respiratory: Clear to auscultation no wheezes crackles or rubs CV: Rate rhythm is regular no murmurs rubs or clicks Abdomen is distended secondary to body habitus soft nontender no masses positive bowel sounds all 4 quadrants Back: No CVA tenderness no spinous process tenderness from cervical spine thoracic and lumbar spine Skin: Intact no petechiae rash induration ulceration or crepitus Extremities: Moving all extremity against resistance cap refill less than 2 seconds neurosensory intact Neuro: Awake alert oriented x3 Glascow coma 15 no focal deficits] Course Quality Measures none Orders Category Date Time Status Transfuse,blood/blood products NOW Care 08/26/24 17:42 Completed CBC Stat Lab 08/26/24 15:28 Completed Comprehensive Metabolic Panel Stat Lab 08/26/24 15:28 Completed HCG,Qualitative Serum Stat Lab 08/26/24 15:28 Completed Partial Thromboplastin Time Stat Lab 08/26/24 15:28 Completed Path Review Blood Smear Stat Lab 08/26/24 15:28 Completed Prothrombin Time with INR Stat Lab 08/26/24 15:28 Completed Type and Screen Stat Lab 08/26/24 15:28 Completed prbc [Red Blood Cells] Stat Lab 08/26/24 15:28 Completed Vital Signs Vital signs: Vital Signs Temperature 99.4 F 08/26/24 15:04 Pulse Rate 98 08/26/24 15:04 Respiratory Rate 18 08/26/24 15:04 Blood Pressure 111/66 08/26/24 15:04 Pulse Oximetry (%) 100 08/26/24 15:04 Oxygen Delivery Method Room Air 08/26/24 15:04 [facility] Patient data External records reviewed:: [facility] previous records Clinical information provided by:: patient Social determinants that could affect healthcare access:: none Patient has the following chronic illnesses:: Ulcerative colitis How is presenting disease/condition affected by chronic disease/condition?: exacerbated by Evaluation data The following diagnostics were reviewed and interpreted by me:: lab results Lab and/or radiology exams considered but not ordered:: CBC shows no leukocytosis anemia with a hemoglobin of 6.1 hematocrit of 22.8 respectively platelets at 519 Coags within acceptable limits CMP shows no acute electrolyte imbalances renal impairment transaminitis or T. bili elevation. Blood type is be positive. Interpretation Summary: Anemia secondary to ulcerative colitis. Patient is afebrile nontoxic-appearing not in any acute distress patient will be transfused with 2 units and discharged home to follow-up with the clinic. Patient states she has a appointment within the week with the same clinic that called in. Called in by Dr. Kaufman at the clinic. Medications Medications considered but not ordered:: None Medication administrations:: None Consultations Consultation(s) initiated? (list below): No Diagnosis Differential Diagnosis ED Complaint MDM: Anemia electrolyte imbalance renal impairment Most likely diagnosis given after review of the tests above:: Anemia Admission Indicated Admission indicated?: not indicated Explain why admission is indicated or not indicated:: Stable for outpatient follow-up Admission Request Was there a request for admission?: No Disposition Plan Disposition Plan: Discharge Discharge Attestation Discharge Attestation: The patient and all family members were given an opportunity to ask questions and understood the discharge instructions. Discharge instructions specifically effects, indications for sooner follow up or return to the emergency department, and the expected course of current diagnosis. Patient condition: Stable Medical Decision Making Differential Diagnosis Differential Diagnosis: Anemia electrolyte imbalance renal impairment Lab Data 08/26/24 15:28 08/26/24 15:28 Labs: Lab Results 08/26/24 Range/Units 15:28 WBC 9.0 (3.6-11.0) Thou/mm3 RBC 3.60 L (4.00-5.20) Miln/mm3 Hgb 6.1 L* (12.0-16.0) g/dL Hct 22.8 L (36.0-46.0) % MCV 63 L (80-100) fL MCH 16.9 L (25.0-35.0) pg MCHC 26.8 L (31.0-37.0) g/dl RDW Std Deviation 42.5 (36.4-46.3) fL Plt Count 519 H (140-440) Thou/mm3 Neut % (Auto) 56 (37-80) % Lymph % (Auto) 30 (10-50) % [place] % (Auto) 12 (0-12) % Eos % (Auto) 0 (0-10) % Baso % (Auto) 0 (0-2.5) % Neut # (Auto) 5.1 (1.8-7.7) Thou/mm3 Lymph # (Auto) 2.7 (1.0-4.8) Thou/mm3 [place] # (Auto) 1.1 H (0.0-0.8) Thou/mm3 Eos # (Auto) 0.0 (0.0-0.5) Thou/mm3 Baso # (Auto) 0.0 (0.0-0.2) Thou/mm3 Immature Gran # (Auto) 0.02 H (0.00-0.00) Thou/mm3 Absolute Nucleated RBC 0.00 (0.00-0.00) Thou/mm3 Immature Gran % 0 (0-0) % Nucleated RBC % 0 (0) /100 WBC Smear Path Review Sent to Pathologist PT 11.1 (9.0-12.2) Seconds INR 1.0 (0.9-1.3) APTT 21.6 L (22.0-36.0) Seconds Sodium 136 (136-145) mMol/L Potassium 3.9 (3.4-5.1) mMol/L Chloride 102 (98-107) mMol/L Carbon Dioxide 24.9 (20.0-31.0) mMol/L Anion Gap 9 (7-16) BUN 10 (9-23) mg/dL Creatinine 0.9 (0.6-1.3) mg/dL Estim Creat Clear Calc 126.6 (>60) mL/min eGFR > 60 (60 - ) See Note BUN/Creatinine Ratio 11 L (12-20) Ratio Glucose 95 (74-106) mg/dL Calculated Osmolality 270 L (275-295) Calcium 9.3 (8.3-10.6) mg/dL Corrected Calcium 9.3 (8.5-10.1) mg/dL Total Bilirubin 0.8 (0.3-1.2) mg/dL AST 16 (0-34) U/L ALT 8 L (10-49) U/L Alkaline Phosphatase 90 (46-116) U/L Total Protein 7.8 (5.7-8.2) gm/dL Albumin 4.1 (3.5-5.0) gm/dL Globulin 3.7 H (2.3-3.5) gm/dL Albumin/Globulin Ratio 1.1 L (1.2-2.2) HCG, Qual Negative Blood Type B Positive Antibody Screen NEGATIVE Crossmatch See Detail Blood Bank Wristband ID Yes Discharge Plan Plan Patient Disposition: HOME (Self Care) Patient condition on transfer: Stable Prescriptions/Referrals Prescriptions/Med Rec: No Action folic acid 1 mg tablet 1 mg PO QDAY Qty: 30 2RF azathioprine 50 mg tablet 50 mg PO QDAY Qty: 30 1RF mesalamine 500 mg capsule, extended release 500 mg PO BID 30 Days Qty: 60 2RF prednisone 10 mg tablet See Taper PO DIRECTED Qty: 70 0RF Taper: Prednisone Taper 40 mg DAILY for 7 Days 30 mg DAILY for 7 Days 20 mg DAILY for 7 Days 10 mg DAILY for 7 Days Rx Instructions: see taper instructions Entyvio 300 mg recon soln 300 mg IV .[id number] Qty: 1 0RF Rx Instructions: This will be the fifth infusion, after this will be every 8 weeks Entyvio Pen 108 mg/0.68 mL pen injector 108 mg subcut .q 2 weeks Qty: 2 11RF Rx Instructions: Alternate injection sites pantoprazole [Protonix] [address] for susp in packet 40 mg PO QDAY Qty: 30 0RF Referrals: Jessee Rivers MD [Primary Care Provider] - In 1 week Problem List Clinical Impression: Anemia Patient/Caregiver Discharge Instructions Education Materials: Anemia Additional Instructions: Follow-up as stated within the next week of his worsening of symptoms return to the emergency room for reevaluation. Print Language: Danish Stand Alone Forms: [employer] Award Info., Work/School Release, Patient Portal Info Letter PA/RIVET HEATER Supervising Physician PA/RIVET HEATER Supervising Physician: Anselmo Cabezas ENP
[2024-08-27 00:06] VITALS: BP 113/69; PULSE 80; RESP 20; TEMP 37.2; O2SAT 100
[2024-08-27 00:20] VITALS: BP 122/70; PULSE 96; RESP 19; TEMP 36.8; O2SAT 98
[2024-08-27 01:00] VITALS: BP 116/74; PULSE 106; RESP 18; O2SAT 100
[2024-08-27 02:51] VITALS: BP 115/71; PULSE 101; RESP 19; TEMP 36.9; O2SAT 100
[2024-08-27 02:52] VITALS: BP 115/71; PULSE 101; RESP 19; TEMP 36.9; O2SAT 100
== END 2024-08-27 02:50 | disposition home or self-care (01) ==
PROVIDERS: Nurse Practitioner Primary Care; Emergency Provider Emergency Medicine
DX: D64.9 Anemia, unspecified (principal)
CPT/HCPCS: 36415; 36430; 80053; 84703; 85025; 85610; 85730; 86850; 86900; 86901; 86921; 86922; 99285; P9016

== ENCOUNTER 2024-09-23 13:32 | Outpatient (AMB) | payer MEDICAID, SELFPAY ==
[2024-09-23 13:40] VITALS: BP 109/73; PULSE 91; RESP 18; TEMP 36.5; O2SAT 99; BMI 34.0
--- NOTE | 2024-09-23 13:40 | PD.RESCLINIC ---
Vital Signs 09/23/24 13:40 Height 1.75 m Height Method Stated Weight 104.383 kg Weight Measurement Method Standing Scale BMI 34.0 BP 109/73 Blood Pressure Source Automatic Cuff Blood Pressure Location Left Upper Arm Position Sitting Respiration 18 Pulse 91 Pulse Source Monitor Temp 97.7 F Temp Source Oral Pulse Oximetry (%) 99 Oxygen Delivery Method Room Air Allergies/Meds Allergies & Medications Allergies infliximab-dyyb Allergy (Severe, Verified 09/23/24 13:41) Difficulty Breathing Medication Reconciliation pantoprazole 40 mg granules delayed-release for susp in packet (Protonix) 40 mg PO QDAY #30 ea 05/01/22 [Rx Confirmed 09/23/24] azathioprine 50 mg tablet 50 mg PO QDAY #30 tabs 05/20/24 [Rx Confirmed 09/23/24] folic acid 1 mg tablet 1 mg PO QDAY #30 tabs 05/20/24 [Rx Confirmed 09/23/24] vedolizumab 300 mg intravenous solution (Entyvio) 300 mg IV .[id number] Ulcerative Colitis #1 ea 07/22/24 [Rx Confirmed 09/23/24] prednisone 10 mg tablet See Taper PO DIRECTED #70 tabs 08/12/24 [Rx Confirmed 09/23/24] Entyvio Pen 108 mg/0.68 mL subcutaneous pen injector (vedolizumab) 108 mg (0.68 mL) subcut .q 2 weeks Ulcerative Colitis #2 pens 08/26/24 [Rx Confirmed 09/23/24] mesalamine 500 mg capsule,extended release 500 mg PO TID 1 month #90 caps 09/23/24 [Rx] MA Intake Visit Data Collection New Patient or Established: Established Patient (seen at [facility] within 3 years) Seen by Clinical Staff ONLY (RN/MA): No Pain Present Currently: No Pain scale:: 0 Pain Scale Used: Ace[employer] Required: No PCP or OBGYN visit in last 3 months: Yes Hx Now: No Date of Last Menstrual Period: 08/31/24 Do You Feel Safe at Home: Yes Authorities Contacted: N/A Smoking Status Smoking Status: Never smoker Immunization / Flu Flu Vaccine in the Last 12 Months: No Flu Vaccine Exclusion Criteria: No Exclusion Criteria Past Medical History Past Medical History NEUROLOGIC: Negative Neurological Disorders or Seizures CARDIAC: Negative Cardiac Disorders, Myocardial Infarction, Cardiac Arrhythmia, Atrial Fibrillation, Angina, Heart Murmur, Coronary Artery Disease, Atherosclerotic Heart Disease, Peripheral Vascular Disease, Hypercholesterolemia, Aneurysm, Congestive Heart Failure, Congenital Heart Disease, Valvular Heart Disease, Rheumatic Fever, Cardiomyopathy, Edema, Pericarditis, Cellulitis, Deep Vein Thrombosis, Hypertension, Hypotension or Varicose Veins RESPIRATORY: Negative Chronic Obstructive Pulmonary Disease (COPD) or Asthma GASTROINTESTINAL: Positive Gastrointestinal Disorders, Gastrointestinal Bleed, Ulcerative Colitis, Irritable Bowel and Obesity; Negative Hepatitis, Cirrhosis, Pancreatitis, Celiac Disease, Gall Bladder Disease, Esophageal Varices, Hernandez's Esophagus, Colitis, Diverticulitis, Diverticulosis, Ulcer, Colorectal Cancer, Crohn's Disease, Obstructive Bowel, Hiatal Hernia, Hemorrhoids or Gastroesophageal Reflux Disease GENITOURINARY: Negative Genitourinary Disorders, Renal Disease, Kidney Stones, Polycystic Kidney Disease, Neurogenic Bladder, Inguinal Hernia, Dialysis, Prostate Cancer or Benign Prostatic Hyperplasia REPRODUCTIVE: Negative Breast Cancer, Pelvic Inflammatory Disease or Testicular Cancer MUSCULOSKELETAL: Negative Bone Cancer ENT: Negative Cataracts, Glaucoma, Blind, Retinal Detachment, Macular Degeneration, Ear Infection, Deafness or Eye Prosthesis ENDOCRINE: Positive Endocrine Disorders and Hypothyroidism; Negative Diabetes Mellitus Type 1, Diabetes Mellitus Type 2, Hypoglycemia, [place]'s Syndrome, Evans's Disease, Hyperthyroidism, Parathyroid Disease, Pituitary Disease, Systemic Lupus Erythematosus, Syndrome of Inappropriate Antidiuretic Hormone (SIADH), Adrenal Disease or Graves' Disease HEMATOLOGIC: Positive Blood Disorders and Anemia; Negative Leukemia, Hemophilia, Thalassemia, Sickle Cell Disease or Clotting Problems PSYCHO/SOCIAL: Positive Anxiety OTHER HISTORY: Positive Hospitalization and Blood Transfusions; Negative Down Syndrome, Developmental Delay, Shingles, Falls, Blood Transfusion Reaction, Anesthesia Reactions, Organ Transplant, Chemotherapy, Radiation Therapy, Hyperbaric Therapy, MRSA, VRSA, Vancomycin-Resistant Enterococci, Human Immunodeficiency Virus (HIV), Chicken Pox, Measles, Mumps, Rubella (Mauritian Measles), Pertussis, Clostridium Difficile, Cancer, Breast Cancer, Cervical Cancer, Colorectal Cancer, Lung Cancer, Ovarian Cancer, Prostate Cancer or Testicular Cancer Family History FAMILY HISTORY: Negative Family Psychiatric Problems, Family Respiratory Disorders, Family Cardiac Disorders, Family Gastrointestinal Problems, Family Cancer, Family Surgery or Family Anesthesia Reaction Surgical History SURGICAL: Positive Section; Negative Cardiac Surgery, Pacemaker, Endocrine Surgery, Ear Surgery, Eye Surgery, Nose Surgery, Oral Surgery, Throat Surgery, Abdominal Surgery, Nephrectomy, Transurethral Resection, Joint Replacement, Neurologic Surgery, Brain Shunt, Mastectomy, Lumpectomy, Hysterectomy, Tubal Ligation, Vasectomy or Organ Transplant Social History SMOKING STATUS: Smoking status: Never smoker SECOND HAND EXPOSURE: second hand exposure: No ALCOHOL: Alcohol Intake: Never HOUSING: Housing: House LIVES WITH: Lives With: Spouse Patient Eduardo Bates Social History Living Situation History Housing: House Housing Other:: Pt from home Tobacco History Smoking Status: Never smoker Second Hand Smoke Exposure: No Alcohol History Alcohol Intake: Never Domestic Abuse History Do You Feel Safe at Home: Yes Review of Systems Report any current symptoms Only answer those that you have currently: Past Medical History Past Medical History Have you ever been diagnosed with any of the following: Neurological Problems Seizures: No Cardiology Problems Myocardial Infarction: No Cardiac Arrhythmia: No Atrial Fibrillation: No Angina: No Heart Murmur: No Coronary Artery Disease: No Atherosclerotic Heart Disease: No Peripheral Vascular Disease: No Hypercholesterolemia: No Aneurysm: No Congestive Heart Failure: No Congenital Heart Disease: No Valvular Heart Disease: No Rheumatic Fever: No Cardiomyopathy: No Edema: No Pericarditis: No Cellulitis: No Deep Vein Thrombosis: No Hypertension: No Hypotension: No Varicose Veins: No Respiratory Problems Chronic Obstructive Pulmonary Disease (COPD): No Asthma: No Stomache/Intestinal Problems Hepatitis: No Cirrhosis: No Pancreatitis: No Celiac Disease: No Gall Bladder Disease: No Gastrointestinal Bleed: Yes Esophageal Varices: No Hernandez's Esophagus: No Colitis: No Ulcerative Colitis: Yes Diverticulitis: No Diverticulosis: No Ulcer: No Colorectal Cancer: No Irritable Bowel: Yes Crohn's Disease: No Obstructive Bowel: No Hiatal Hernia: No Hemorrhoids: No Gastroesophageal Reflux Disease: No Obesity: Yes Genital/Urinary Problems Renal Disease: No Kidney Stones: No Polycystic Kidney Disease: No Neurogenic Bladder: No Inguinal Hernia: No Dialysis: No Prostate Cancer: No Benign Prostatic Hyperplasia: No Reproductive Problems Breast Cancer: No Pelvic Inflammatory Disease: No Testicular Cancer: No Musculoskeletal Problems Bone Cancer: No Head,Eye,Nose,Throat Problems Cataracts: No Glaucoma: No Blind: No Retinal Detachment: No Macular Degeneration: No Chronic Ear Infections: No Deafness: No Eye Prosthesis: No Endocrine Problems Diabetes Mellitus Type 1: No Diabetes Mellitus Type 2: No Hypoglycemia: No [place]'s Syndrome: No Talmoon's Disease: No Hyperthyroidism: No Hypothyroidism: Yes Parathyroid Disease: No Pituitary Disease: No Systemic Lupus Erythematosus: No Syndrome of Inappropriate Antidiuretic Hormone: No Adrenal Disease: No Graves' Disease: No Blood Problems Anemia: Yes Leukemia: No Hemophilia: No Thalassemia: No Sickle Cell Disease: No Clotting Problems: No Psychologic Problems Anxiety: Yes Other Problems Hospitalization: Yes Down Syndrome: No Developmental Delay: No Shingles: No Falls: No Blood Transfusions: Yes Blood Transfusion Reaction: No Anesthesia Reactions: No Organ Transplant: No Chemotherapy: No Radiation Therapy: No Hyperbaric Therapy: No MRSA: No VRSA: No Vancomycin-Resistant Enterococci: No Human Immunodeficiency Virus (HIV): No Chicken Pox: No Measles: No Mumps: No Rubella (Mauritian Measles): No Pertussis: No Clostridium Difficile: No Cancer: No Cervical Cancer: No Lung Cancer: No Ovarian Cancer: No Surgical History Hysterectomy: No Pacemaker: No History of Present Illness HPI Narrative 23-year-old female with past medical history of ulcerative colitis and chronic anemia seen in the [facility] today for follow-up on labs as well as follow-up on lab results and also colitis medication. Patient stated that she went to the ER on the same day after last visit since her hemoglobin was low and she got 2 units of PRBCs transfused. Lab results were discussed with her today and her hemoglobin was up at 9. She states that she has noticed improvement in her symptoms and she is only waking up maybe once or not at all during the nighttime and that during the day she has around 3 bowel movements with most of them having some streaks of blood but no kaley blood. She is feeling energetic with no weakness or fatigue at this time. She also got a call about her Entyvio pain which should have been delivered on September 18, but it still has not arrived. Told her to follow-up with the pharmacy to make sure that she does get that medication prior to her next dose which should be next week on 29 of September. When she does get her pain she will call the office so that we can show her how to properly administer the medication. She had no other complaints this time. Will see the patient back in 3 months unless she has any new symptoms. Review of Systems Review of Systems Narrative Review of Systems: Constitutional: Denies sweats, Denies weight loss/gain, Denies fever, Denies chills, Admits low energy HEENT: Denies hearing loss, Denies ear pain, Denies postnasal drip, Denies double vision, Denies blurry vision. Respiratory: Denies shortness of breath, Denies cough, Denies wheezing. Cardiovascular: Denies chest pain, Denies palpitations, Denies sudden loss of consciousness. GI: Admits blood in stool, Denies constipation, Denies abdominal pain, Denies difficulty swallowing, denies nausea denies vomit. : Denies urinary incontinence, Denies pain while urinating, Denies increased urinary frequency. MSK: Denies joint pain, Denies joint swelling, Denies numbness. Skin: Denies rash, Denies itching, Denies easy bruising. Neuro: denies headaches, Denies dizziness, Denies seizures. Objective/Exam General General Appearance: alert, in no apparent distress, comfortable, cooperative and well groomed Head Head exam: atraumatic, normocephalic and normal inspection Eye Eye exam: Present normal appearance, PERRL and EOMI Neck Neck exam: Present normal inspection and full ROM Resp Respiratory exam: Present normal lung sounds bilaterally Card Cardiovascular exam: Present regular rate, normal rhythm and normal heart sounds Abdominal Abdominal exam: Present soft and normal bowel sounds Abdominal tenderness: Present diffuse and mild Extremities Extremities exam: Present normal inspection and full ROM Neuro Neurological exam: Present alert, oriented X3, CN II-XII intact and normal gait Psych Psychiatric exam: Present normal affect and normal mood Assessment & Plan Diagnosis / Problem List (1) Symptomatic anemia: Status: Acute Assessment & Plan: Resolved ? CBC showed patient hemoglobin was 9 Plan: Plan: ?Will continue to monitor (2) Ulcerative colitis: Status: Chronic Qualifiers: Digestive disease complication type: with rectal bleeding Ulcerative colitis location: other ulcerative colitis Qualified Code(s): K51.811 - Other ulcerative colitis with rectal bleeding Assessment & Plan: ? Patient has been having around 1 or no bowel movements during the day ? Patient states that she has been around 3 bowel movements per day and most of them being with some streaks of blood but no kaley blood. Plan: -Patient did not get steroid course last prescribed -Continue pentassa, entyvio, azathiprione, and protonix Will refill Pentasa. Additional Assessment Internal Medicine Attending Note: Case discussed with and agree with note and management plan of Resident Physician as per Resident's Note above. Follow-up visit. At last visit, patient was sent to the emergency room for anemia. She received 2 units of PRBCs. Hemoglobin at 9 on follow-up labs. Still noting some blood-streaked bowel movements but no kaley blood. Energy level reasonable. To receive Entyvio from pharmacy. She will need direction on how to administer. Continue other meds for ulcerative colitis. Issues of concern for present visit are as follows: Alexis Howard MD Physician Billing Established Patient Established Patient: E/M Level 3-CPT 10678 Office Procedures [facility] Level of Care Nursing/Assessment Patient Status: Established Patient Nursing Assessment/Reassessment: Medication Reconciliation, Update PMH in EMR and Vital Signs Coordination of Care: Complex Care and Chronic Disease 1-5, Consent,records obtained, informed consent, Education Simp Pt/Fam, Results/Orders obtained and Staff clarify orders Established Patient Charge Established Patient Point Assignment: 90 Established Patient Point Charge: EP Level 3 (80-115)
== END 2024-09-23 14:05 | disposition home or self-care (01) ==
LOC: HODAHC 13:32
PROVIDERS: Supervising Provider Internal Medicine
DX: K51.911 Ulcerative colitis, unspecified with rectal bleeding (principal); Z86.2 Personal history of diseases of the blood and blood-forming organs and certain disorders involving the immune mechanism
CPT/HCPCS: 99213; G0463

== ENCOUNTER 2024-10-28 13:27 | Outpatient (AMB) | payer MEDICAID, SELFPAY ==
[2024-10-28 13:44] VITALS: BP 108/70; PULSE 103; RESP 18; TEMP 36.4; O2SAT 100; BMI 32.5
--- NOTE | 2024-10-28 13:44 | ACNOTE_ITS ---
Vital Signs 10/28/24 13:44 Height 1.75 m Height Method Stated Weight 99.564 kg Weight Measurement Method Standing Scale BMI 32.5 BP 108/70 Blood Pressure Source Automatic Cuff Blood Pressure Location Left Upper Arm Position Sitting Respiration 18 Pulse 103 H Pulse Source Monitor Temp 97.5 F Temp Source Temporal Artery Scan Pulse Oximetry (%) 100 Oxygen Delivery Method Room Air Allergies/Meds Allergies & Medications Allergies infliximab-dyyb Allergy (Severe, Verified 10/28/24 13:46) Difficulty Breathing Medication Reconciliation pantoprazole 40 mg granules delayed-release for susp in packet (Protonix) 40 mg PO QDAY #30 ea 05/01/22 [Rx Confirmed 10/28/24] azathioprine 50 mg tablet 50 mg PO QDAY #30 tabs 05/20/24 [Rx Confirmed 10/28/24] folic acid 1 mg tablet 1 mg PO QDAY #30 tabs 05/20/24 [Rx Confirmed 10/28/24] vedolizumab 300 mg intravenous solution (Entyvio) 300 mg IV .[id number] Ulcerative Colitis #1 ea 07/22/24 [Rx Confirmed 10/28/24] prednisone 10 mg tablet See Taper PO DIRECTED #70 tabs 08/12/24 [Rx Confirmed 10/28/24] Entyvio Pen 108 mg/0.68 mL subcutaneous pen injector (vedolizumab) 108 mg (0.68 mL) subcut .q 2 weeks Ulcerative Colitis #2 pens 08/26/24 [Rx Confirmed 10/28/24] mesalamine 500 mg capsule,extended release 500 mg PO TID 1 month #90 caps 09/23/24 [Rx Confirmed 10/28/24] MA Intake Visit Data Collection New Patient or Established: Established Patient (seen at [facility] within 3 years) Seen by Clinical Staff ONLY (RN/MA): No Pain Present Currently: No Pain scale:: 0 Pain Scale Used: Acevedo-Jett/Numerical Survey Methodologist Required: No PCP or OBGYN visit in last 3 months: No Hx Now: No Do You Feel Safe at Home: Yes Authorities Contacted: N/A Smoking Status Smoking Status: Never smoker Immunization / Flu Flu Vaccine in the Last 12 Months: No Flu Vaccine Exclusion Criteria: No Exclusion Criteria Past Medical History Past Medical History NEUROLOGIC: Negative Neurological Disorders or Seizures CARDIAC: Negative Cardiac Disorders, Myocardial Infarction, Cardiac Arrhythmia, Atrial Fibrillation, Angina, Heart Murmur, Coronary Artery Disease, Atherosclerotic Heart Disease, Peripheral Vascular Disease, Hypercholesterolemia, Aneurysm, Congestive Heart Failure, Congenital Heart Disease, Valvular Heart Disease, Rheumatic Fever, Cardiomyopathy, Edema, Pericarditis, Cellulitis, Deep Vein Thrombosis, Hypertension, Hypotension or Varicose Veins RESPIRATORY: Negative Chronic Obstructive Pulmonary Disease (COPD) or Asthma GASTROINTESTINAL: Positive Gastrointestinal Disorders, Gastrointestinal Bleed, Ulcerative Colitis, Irritable Bowel and Obesity; Negative Hepatitis, Cirrhosis, Pancreatitis, Celiac Disease, Gall Bladder Disease, Esophageal Varices, Hernandez's Esophagus, Colitis, Diverticulitis, Diverticulosis, Ulcer, Colorectal Cancer, Crohn's Disease, Obstructive Bowel, Hiatal Hernia, Hemorrhoids or Gastroesophageal Reflux Disease GENITOURINARY: Negative Genitourinary Disorders, Renal Disease, Kidney Stones, Polycystic Kidney Disease, Neurogenic Bladder, Inguinal Hernia, Dialysis, Prostate Cancer or Benign Prostatic Hyperplasia REPRODUCTIVE: Negative Breast Cancer, Pelvic Inflammatory Disease or Testicular Cancer MUSCULOSKELETAL: Negative Bone Cancer ENT: Negative Cataracts, Glaucoma, Blind, Retinal Detachment, Macular Degeneration, Ear Infection, Deafness or Eye Prosthesis ENDOCRINE: Positive Endocrine Disorders and Hypothyroidism; Negative Diabetes Mellitus Type 1, Diabetes Mellitus Type 2, Hypoglycemia, Alla's Syndrome, Evans's Disease, Hyperthyroidism, Parathyroid Disease, Pituitary Disease, Systemic Lupus Erythematosus, Syndrome of Inappropriate Antidiuretic Hormone (SIADH), Adrenal Disease or Graves' Disease HEMATOLOGIC: Positive Blood Disorders and Anemia; Negative Leukemia, Hemophilia, Thalassemia, Sickle Cell Disease or Clotting Problems PSYCHO/SOCIAL: Positive Anxiety OTHER HISTORY: Positive Hospitalization and Blood Transfusions; Negative Down Syndrome, Developmental Delay, Shingles, Falls, Blood Transfusion Reaction, Anesthesia Reactions, Organ Transplant, Chemotherapy, Radiation Therapy, Hyperbaric Therapy, MRSA, VRSA, Vancomycin-Resistant Enterococci, Human Immunodeficiency Virus (HIV), Chicken Pox, Measles, Mumps, Rubella ([place]ian Measles), Pertussis, Clostridium Difficile, Cancer, Breast Cancer, Cervical Cancer, Colorectal Cancer, Lung Cancer, Ovarian Cancer, Prostate Cancer or Testicular Cancer Family History FAMILY HISTORY: Negative Family Psychiatric Problems, Family Respiratory Disorders, Family Cardiac Disorders, Family Gastrointestinal Problems, Family Cancer, Family Surgery or Family Anesthesia Reaction Surgical History SURGICAL: Positive Section; Negative Cardiac Surgery, Pacemaker, Endocrine Surgery, Ear Surgery, Eye Surgery, Nose Surgery, Oral Surgery, Throat Surgery, Abdominal Surgery, Nephrectomy, Transurethral Resection, Joint Replacement, Neurologic Surgery, Brain Shunt, Mastectomy, Lumpectomy, Hysterectomy, Tubal Ligation, Vasectomy or Organ Transplant Social History SMOKING STATUS: Smoking status: Never smoker SECOND HAND EXPOSURE: second hand exposure: No ALCOHOL: Alcohol Intake: Never HOUSING: Housing: House LIVES WITH: Lives With: Spouse Patient Eduardo Bates Social History Living Situation History Housing: House Housing Other:: Pt from home Tobacco History Smoking Status: Never smoker Second Hand Smoke Exposure: No Alcohol History Alcohol Intake: Never Domestic Abuse History Do You Feel Safe at Home: Yes Review of Systems Report any current symptoms Only answer those that you have currently: Past Medical History Past Medical History Have you ever been diagnosed with any of the following: Neurological Problems Seizures: No Cardiology Problems Myocardial Infarction: No Cardiac Arrhythmia: No Atrial Fibrillation: No Angina: No Heart Murmur: No Coronary Artery Disease: No Atherosclerotic Heart Disease: No Peripheral Vascular Disease: No Hypercholesterolemia: No Aneurysm: No Congestive Heart Failure: No Congenital Heart Disease: No Valvular Heart Disease: No Rheumatic Fever: No Cardiomyopathy: No Edema: No Pericarditis: No Cellulitis: No Deep Vein Thrombosis: No Hypertension: No Hypotension: No Varicose Veins: No Respiratory Problems Chronic Obstructive Pulmonary Disease (COPD): No Asthma: No Stomache/Intestinal Problems Hepatitis: No Cirrhosis: No Pancreatitis: No Celiac Disease: No Gall Bladder Disease: No Gastrointestinal Bleed: Yes Esophageal Varices: No Hernandez's Esophagus: No Colitis: No Ulcerative Colitis: Yes Diverticulitis: No Diverticulosis: No Ulcer: No Colorectal Cancer: No Irritable Bowel: Yes Crohn's Disease: No Obstructive Bowel: No Hiatal Hernia: No Hemorrhoids: No Gastroesophageal Reflux Disease: No Obesity: Yes Genital/Urinary Problems Renal Disease: No Kidney Stones: No Polycystic Kidney Disease: No Neurogenic Bladder: No Inguinal Hernia: No Dialysis: No Prostate Cancer: No Benign Prostatic Hyperplasia: No Reproductive Problems Breast Cancer: No Pelvic Inflammatory Disease: No Testicular Cancer: No Musculoskeletal Problems Bone Cancer: No Head,Eye,Nose,Throat Problems Cataracts: No Glaucoma: No Blind: No Retinal Detachment: No Macular Degeneration: No Chronic Ear Infections: No Deafness: No Eye Prosthesis: No Endocrine Problems Diabetes Mellitus Type 1: No Diabetes Mellitus Type 2: No Hypoglycemia: No Detroit's Syndrome: No Cove's Disease: No Hyperthyroidism: No Hypothyroidism: Yes Parathyroid Disease: No Pituitary Disease: No Systemic Lupus Erythematosus: No Syndrome of Inappropriate Antidiuretic Hormone: No Adrenal Disease: No Graves' Disease: No Blood Problems Anemia: Yes Leukemia: No Hemophilia: No Thalassemia: No Sickle Cell Disease: No Clotting Problems: No Psychologic Problems Anxiety: Yes Other Problems Hospitalization: Yes Down Syndrome: No Developmental Delay: No Shingles: No Falls: No Blood Transfusions: Yes Blood Transfusion Reaction: No Anesthesia Reactions: No Organ Transplant: No Chemotherapy: No Radiation Therapy: No Hyperbaric Therapy: No MRSA: No VRSA: No Vancomycin-Resistant Enterococci: No Human Immunodeficiency Virus (HIV): No Chicken Pox: No Measles: No Mumps: No Rubella ([place] Measles): No Pertussis: No Clostridium Difficile: No Cancer: No Cervical Cancer: No Lung Cancer: No Ovarian Cancer: No Surgical History Hysterectomy: No Pacemaker: No History of Present Illness HPI Narrative 23-year-old female with past medical history of ulcerative colitis and chronic anemia seen in the [facility] today due to having increased bowel movements throughout the day as well as night since her second dose of her interview self-administered dose. Patient recently started her Entyvio dosages self administration via pen on October 04 after which she did not have any symptoms and she went and saw her GI specialist. She mentioned that her GI specialist was okay with the current plan, but ordered some blood work as well as a colonoscopy that will be scheduled for November. Patient mentioned that after his second shot which was on October 18 she did have left abdominal pain as well as decreased appetite and increased bowel movements. She mentioned that she has been having around 10 bowel movements throughout the daytime and 4 bowel movements throughout the night. Most of these bowel movements have been diarrhea-like as well as bloody and are accompanied by abdominal pain and cramping after she eats. She mentioned that she has also had some nausea and vomiting in the mornings. On physical examination with edmundo Collier, medical unit secretary, present patient had moderate tenderness on the left side of the abdomen as well as in the epigastric region. Given the patient's symptoms there is some clinical suspicion for possible pancreatitis as Entyvio is known to cause acute pancreatitis as a side effect. Patient denied having any increased intake and alcohol and does not recall any changes in her diet. Patient also complained about some left foot pain, but denies any trauma to this. Patient was advised to get blood work done prior to next Entyvio administration which is to on November 01, 2024. Last menstrual period was on October 05, 2024 Review of Systems Review of Systems Narrative Review of Systems: Constitutional: Denies sweats, Denies weight loss/gain, Denies fever, Denies chills, Admits low energy HEENT: Denies hearing loss, Denies ear pain, Denies postnasal drip, Denies double vision, Denies blurry vision. Respiratory: Denies shortness of breath, Denies cough, Denies wheezing. Cardiovascular: Denies chest pain, Denies palpitations, Denies sudden loss of consciousness. GI: Admits blood in stool, Denies constipation, Admits abdominal pain, Denies difficulty swallowing, admits nausea admits vomit. : Denies urinary incontinence, Denies pain while urinating, Denies increased urinary frequency. MSK: Denies joint pain, Denies joint swelling, Denies numbness, admits foot pain. Skin: Denies rash, Denies itching, Denies easy bruising. Neuro: denies headaches, Denies dizziness, Denies seizures. Objective/Exam General General Appearance: alert, in no apparent distress, comfortable, cooperative and well groomed Head Head exam: atraumatic, normocephalic and normal inspection Eye Eye exam: Present normal appearance, PERRL and EOMI Neck Neck exam: Present normal inspection and full ROM Resp Respiratory exam: Present normal lung sounds bilaterally Card Cardiovascular exam: Present regular rate, normal rhythm and normal heart sounds Abdominal Abdominal exam: Present soft and normal bowel sounds Abdominal tenderness: Present diffuse and mild Extremities Extremities exam: Present normal inspection, full ROM and other (L foot mildly swollen in medial plantar aspect, but non tender. ) Neuro Neurological exam: Present alert, oriented X3, CN II-XII intact and normal gait Psych Psychiatric exam: Present normal affect and normal mood Assessment & Plan Diagnosis / Problem List (1) Ulcerative colitis: Status: Chronic Qualifiers: Ulcerative colitis location: other ulcerative colitis Digestive disease complication type: with rectal bleeding Qualified Code(s): K51.811 - Other ulcerative colitis with rectal bleeding Assessment & Plan: Patient appears to be having also colitis flareup given that she has been having increased bowel movements as well as more bloody episodes. Plan: Will order Medrol pack Asked patient to take Protonix twice a day while she is taking the Medrol pack Asked patient to hold off on next Entyvio infusion if she has not gotten her labs done Will order CBC to follow-up on hemoglobin Continue pentassa and azathiprione (2) Epigastric abdominal pain: Status: Acute Assessment & Plan: Patient has been having some abdominal pain including in the epigastric region as well as some nausea and vomiting. Patient is currently on Entyvio which is a side effect could cause acute pancreatitis Plan: Will order lipase (3) Nausea & vomiting: Status: Acute Qualifiers: Vomiting type: unspecified Qualified Code(s): R11.2 - Nausea with vomiting, unspecified Assessment & Plan: Patient has also been having some nausea and vomiting in the mornings Plan: Will follow-up on lipase ordered to see if there is some possible pancreatitis in the setting of Entyvio infusions (4) Foot pain, left: Status: Acute Assessment & Plan: Patient states that she has been having some left foot pain, but denied any trauma Plan: Will follow-up on next visit if pain still persists Advised cold compresses and Tylenol for pain Office Procedures [facility] Level of Care Nursing/Assessment Patient Status: Established Patient Nursing Assessment/Reassessment: Medication Reconciliation, Update PMH in EMR and Vital Signs Coordination of Care: Complex Care and Chronic Disease 1-5, Consent,records obtained, informed consent, Education Simp Pt/Fam and Staff clarify orders Established Patient Charge Established Patient Point Assignment: 85 Established Patient Point Charge: Level 3 (80-115)
== END 2024-10-28 14:52 | disposition home or self-care (01) ==
LOC: HODAHC 13:27
PROVIDERS: Supervising Provider Internal Medicine
DX: K51.911 Ulcerative colitis, unspecified with rectal bleeding (principal); M79.672 Pain in left foot
CPT/HCPCS: 99213; G0463

== ENCOUNTER 2024-10-31 05:33 | Emergency (ER) | payer MEDICAID, SELFPAY ==
[2024-10-31] VITALS (13 sets, daily range): BP systolic 103–127; BP diastolic 57–80; PULSE 58–85; RESP 16–20; TEMP 36.7–37.1; O2SAT 96–100; BMI 32.5
--- NOTE | 2024-10-31 05:46 | XR_ITS ---
Examination: Duplex scan of the lower extremity, unilateral left Date and time of exam: October 31, 2024 at 0603 hours INDICATIONS: Left leg pain beginning 4 days ago Technique: Duplex scan of the extremity veins using B-mode/grayscale imaging and Doppler spectral analysis and color flow Attention is directed to internal echogenicity, compression and augmentation involving these veins, color flow assessment, spectral analysis Findings: Major deep venous structures in the extremity demonstrate normal course and caliber. There is no evidence of deep vein thrombosis. Normal color flow and spectral analysis Impression: Negative for DVT..
--- NOTE | 2024-10-31 05:46 | PD.EDRME ---
Rapid Medical Screening Exam RME Arrival date/time: 10/31/24 05:33 24F with history of anemia 2/2 UC presents to ED with 2 days of LLE pain and swelling w/o fall/trauma. Separately, patient states she had outpatient labs done 2 days ago and her HgB was 6.2. Patient is current on steroids for UC flare. Chief Complaint: Extremity Injury, Lower Vital signs: Vital Signs Temperature 98.3 F 10/31/24 05:42 Pulse Rate 85 10/31/24 05:42 Respiratory Rate 18 10/31/24 05:42 Blood Pressure 121/80 10/31/24 05:42 Pulse Oximetry (%) 100 10/31/24 05:42 Oxygen Delivery Method Room Air 10/31/24 05:42
--- NOTE | 2024-10-31 06:48 | PRELIM_ITS ---
Left lower extremity venous Doppler ultrasound. October 31, 2024 0603 hours Clinical history: r/o DVT Technique: Duplex scan of the left lower extremity deep venous systems was performed utilizing 2D grayscale imaging, Doppler spectral analysis and color flow Doppler and with compression. Comparison:No prior study is available for comparison. Findings: Marquez scale, color flow and spectral Doppler evaluation of the left lower extremity deep veins was performed. The common femoral, superficial femoral and popliteal veins are patent and compressible. Normal respiratory variation is noted. There is no evidence of occlusive or nonocclusive thrombus. The great saphenous vein is patentat the level of the saphenofemoral junction. Impression: No sonographic evidence of deep venous thrombosis in the left lower extremity. Report Electronically Signed By: Jun Romero 10/31/2024 6:48:15 AM [EST]
[2024-10-31 07:35] LABS: Basophils % (Auto) 0 % (0-2.5); Eosinophils % (Auto) 0 % (0-10); Hematocrit 24.6 % (36.0-46.0); Immature Granulocytes % (Auto) 0 % (0-0); Immature Granulocytes Auto 0.02 Thou/mm3 (0.00-0.00); Lymphocytes # (Auto) 2.5 Thou/mm3 (1.0-4.8); Lymphocytes % (Auto) 34 % (10-50); Mean Corpuscular HGB Conc 27.6 g/dl (31.0-37.0); Mean Corpuscular Hemoglobin 18.1 pg (25.0-35.0); Mean Corpuscular Volume 65 fL (80-100); Monocytes % (Auto) 14 % (0-12); Neutrophils # (Auto) 3.8 Thou/mm3 (1.8-7.7); Neutrophils % (Auto) 51 % (37-80); Nucleated Red Blood Cell % 0 /100 WBC (0); Platelet Count 550 Thou/mm3 (140-440); RDW Standard Deviation 42.9 fL (36.4-46.3); Red Blood Count 3.76 Miln/mm3 (4.00-5.20); White Blood Count 7.4 Thou/mm3 (3.6-11.0)
[2024-10-31 07:47] LABS: Hemoglobin 6.8 g/dL (12.0-16.0)
[2024-10-31 07:56] LABS: Alanine Aminotransferase 8 U/L (10-49); Albumin, Serum 3.6 gm/dL (3.5-5.0); Alkaline Phosphatase 94 U/L (46-116); Anion Gap 9 (7-16); Aspartate Amino Transferase 12 U/L (0-34); BUN/Creatinine Ratio 6 Ratio (12-20); Bilirubin,Total 0.6 mg/dL (0.3-1.2); Blood Urea Nitrogen 5 mg/dL (9-23); Calcium 8.9 mg/dL (8.3-10.6); Calcium (Corrected) 9.2 mg/dL (8.5-10.1); Carbon Dioxide 26.5 mMol/L (20.0-31.0); Chloride 105 mMol/L (98-107); Creatinine (Component) 0.8 mg/dL (0.6-1.3); Estimated Creatinine Clearance 136.3 mL/min (>60); Globulin 3.6 gm/dL (2.3-3.5); Glucose 100 mg/dL (74-106); Osmolality,Calculated 276 (275-295); Potassium 3.8 mMol/L (3.4-5.1); Sodium 140 mMol/L (136-145); Total Protein 7.2 gm/dL (5.7-8.2); eGFR > 60 See Note
--- NOTE | 2024-10-31 10:13 | PD.EDADULT ---
ED General RME/HPI General Chief complaint: Extremity Injury, Lower Stated complaint: LOW HGB, LEFT LEG PAIN Time Seen by Provider: 10/31/24 10:16 Arrival date/time: 10/31/24 05:33 RME / HPI RME / HPI narrative: 10/31/24 05:33 24F with history of anemia 2/2 UC presents to ED with 2 days of LLE pain and swelling w/o fall/trauma. Separately, patient states she had outpatient labs done 2 days ago and her HgB was 6.2. Patient is current on steroids for UC flare. DR. LEWIS MAIN ED EVALUATION 24 year old female with history of ulcerative colitis, chronic anemia, previous blood transfusions presents to the ED for evaluation of left lower extremity and left foot pain and swelling today. Reportedly has had similar foot pain and swelling with previous ulcerative colitis flares and states she is currently on steroids. Additionally reports she had outpatient labs drawn several days ago and advised her HGB was 6.2. States she does have blood in stool although states that is baseline for her since being diagnosed with UC. No other associated symptoms reported. Denies fever, chills, sweating. Denies chest pain, cough, shortness of breath. Denies nausea, vomiting. Denies dysuria, urinary frequency and urgency. Related Data Previous Rx's ?Medication ?Instructions ?Recorded pantoprazole 40 mg granules 40 mg PO QDAY #30 ea 05/01/22 delayed-release for susp in packet (Protonix) azathioprine 50 mg tablet 50 mg PO QDAY #30 tabs 05/20/24 folic acid 1 mg tablet 1 mg PO QDAY #30 tabs 05/20/24 vedolizumab 300 mg intravenous 300 mg IV .[id number] Ulcerative 07/22/24 solution (Entyvio) Colitis #1 ea Entyvio Pen 108 mg/0.68 mL 108 mg (0.68 mL) subcut .q 2 weeks 08/26/24 subcutaneous pen injector Ulcerative Colitis #2 pens (vedolizumab) mesalamine 500 mg capsule,extended 500 mg PO TID 1 month #90 caps 09/23/24 release methylprednisolone 4 mg tablets in 4 mg PO QAM #21 tabs 10/28/24 a dose pack (Medrol (Derrick)) Allergies Allergy/AdvReac Type Severity Reaction Status Date / Time infliximab-dyyb Allergy Severe Difficulty Verified 10/28/24 13:46 Breathing Review of Systems Review of Systems Narrative Review of Systems: GEN: No fever, no chills EYES: No discharge, no visual changes, no pain HEENT: No ear pain, no congestion, no sore throat PULM: No shortness of breath, no cough, no congestion CV: No chest pain, no dyspnea on exertion, no palpitations GI: No nausea, no vomiting, no diarrhea, no pain, no constipation, +blood in stool although states is baseline for her since being dx with UC : No frequency, no urgency, no dysuria MUSC/SKEL: +Left leg/foot pain and swelling, no back pain SKIN: No rash PSYCH: No hallucinations, no depression HEME/LYMPH: hx of chronic anemia NEURO: No weakness, no headache Past Medical History Past Medical History GASTROINTESTINAL: Positive Gastrointestinal Disorders, Gastrointestinal Bleed, Ulcerative Colitis, Irritable Bowel and Obesity ENDOCRINE: Positive Endocrine Disorders and Hypothyroidism HEMATOLOGIC: Positive Blood Disorders and Anemia PSYCHO/SOCIAL: Positive Anxiety OTHER HISTORY: Positive Hospitalization and Blood Transfusions Family History FAMILY HISTORY: Negative Family Psychiatric Problems, Family Respiratory Disorders, Family Cardiac Disorders, Family Gastrointestinal Problems, Family Cancer, Family Surgery or Family Anesthesia Reaction Surgical History SURGICAL: Positive Section Social History SMOKING STATUS: Never smoker SECOND HAND EXPOSURE: No SUBSTANCE USE: does not use ED Exam Narrative Physical exam: GENERAL APPEARANCE: alert and oriented x 4, well-developed, well-nourished, no acute distress HEENT: Normocephalic, atraumatic; pupils equal, round, reactive to light; EOMI; mucous membranes pink, moist; oropharynx clear NECK: Supple LUNGS: CTABL; no wheezes, no rales, no rhonchi HEART: Regular rate, regular rhythm; normal S1, S2; no murmurs ABDOMEN: non distended; normal BS; soft, no tenderness, no guarding, no rebound; no masses, no organomegaly, no hernia BACK: no CVA tenderness EXTREMITIES: Minor left ankle edema, no deformity; atraumatic NEUROLOGIC: awake; alert and oriented x4; cranial nerves II-XII grossly intact; no focal sensory or motor deficits PSYCHIATRIC: appropriate mood and affect SKIN: warm, dry, normal color; no rashes Course Quality Measures none Orders Category Date Time Status Insert IV NOW Care 10/31/24 05:46 Active Transfuse,blood/blood products NOW Care 10/31/24 08:47 Active Diet Regular Diet 10/31/24 Lunch Active US venous doppler LE LT Stat Exams 10/31/24 05:46 Completed CBC Stat Lab 10/31/24 07:15 Completed CMP [Comprehensive Metabolic Panel] Stat Lab 10/31/24 07:15 Completed Red Blood Cells Stat Lab 10/31/24 07:15 Completed Type and Screen Stat Lab 10/31/24 07:15 Completed Vital Signs Vital signs: Vital Signs Temperature 98.3 F 10/31/24 05:42 Pulse Rate 85 10/31/24 05:42 Respiratory Rate 18 10/31/24 05:42 Blood Pressure 121/80 10/31/24 05:42 Pulse Oximetry (%) 100 10/31/24 05:42 Oxygen Delivery Method Room Air 10/31/24 05:42 Pulse ox is 100% on room air which is adequate. [facility] Patient data External records reviewed:: [facility] previous records (I reviewed ED Visit on 08/26/2024 ) Clinical information provided by:: patient Social determinants that could affect healthcare access:: none Patient has the following chronic illnesses:: ulcerative colitis, chronic anemia, previous blood transfusions How is presenting disease/condition affected by chronic disease/condition?: exacerbated by Evaluation data The following diagnostics were reviewed and interpreted by me:: lab results and radiology exam(s) Lab and/or radiology exams considered but not ordered:: None Interpretation Summary: Ordering Physician: Troy Ortiz PA-C Date of Service: 10/31/24 Procedure(s): US venous doppler LE LT Accession Number(s): [id number] cc: Ronnie Owen MD; NO PRIMARY/FAMILY,PHYSICIAN; Troy Ortiz PA-C~ Examination: Duplex scan of the lower extremity, unilateral left Date and time of exam: October 31, 2024 at 0603 hours INDICATIONS: Left leg pain beginning 4 days ago Technique: Duplex scan of the extremity veins using B-mode/grayscale imaging and Doppler spectral analysis and color flow Attention is directed to internal echogenicity, compression and augmentation involving these veins, color flow assessment, spectral analysis Findings: Major deep venous structures in the extremity demonstrate normal course and caliber. There is no evidence of deep vein thrombosis. Normal color flow and spectral analysis Impression: Negative for DVT.. Dictated By: Ronnie Owen MD Signed By: <Electronically signed by Ronnie Owen MD in OV> 10/31/24 0720 Medications Medications considered but not ordered:: None Medication administrations:: See above Consultations Consultation(s) initiated? (list below): No Diagnosis Differential Diagnosis ED Complaint MDM: anemia, chronic anemia, UC, DVT Most likely diagnosis given after review of the tests above:: Symptomatic anemia Transfusion of blood during current hospitalization Left ankle swelling Admission Indicated Admission indicated?: not indicated Explain why admission is indicated or not indicated:: Does not meet admission criteria Admission Request Was there a request for admission?: No Disposition Plan Disposition Plan: Discharge Discharge Attestation Discharge Attestation: The patient and all family members were given an opportunity to ask questions and understood the discharge instructions. Discharge instructions specifically effects, indications for sooner follow up or return to the emergency department, and the expected course of current diagnosis. Patient condition: Stable Medical Decision Making Differential Diagnosis Differential Diagnosis: anemia, chronic anemia, UC, DVT Lab Data 10/31/24 07:15 10/31/24 07:15 Labs: Lab Results 10/31/24 Range/Units 07:15 WBC 7.4 (3.6-11.0) Thou/mm3 RBC 3.76 L (4.00-5.20) Miln/mm3 Hgb 6.8 L* (12.0-16.0) g/dL Hct 24.6 L (36.0-46.0) % MCV 65 L (80-100) fL MCH 18.1 L (25.0-35.0) pg MCHC 27.6 L (31.0-37.0) g/dl RDW Std Deviation 42.9 (36.4-46.3) fL Plt Count 550 H (140-440) Thou/mm3 Neut % (Auto) 51 (37-80) % Lymph % (Auto) 34 (10-50) % Hubbard % (Auto) 14 H (0-12) % Eos % (Auto) 0 (0-10) % Baso % (Auto) 0 (0-2.5) % Neut # (Auto) 3.8 (1.8-7.7) Thou/mm3 Lymph # (Auto) 2.5 (1.0-4.8) Thou/mm3 Hubbard # (Auto) 1.0 H (0.0-0.8) Thou/mm3 Eos # (Auto) 0.0 (0.0-0.5) Thou/mm3 Baso # (Auto) 0.0 (0.0-0.2) Thou/mm3 Immature Gran # (Auto) 0.02 H (0.00-0.00) Thou/mm3 Absolute Nucleated RBC 0.00 (0.00-0.00) Thou/mm3 Immature Gran % 0 (0-0) % Nucleated RBC % 0 (0) /100 WBC Sodium 140 (136-145) mMol/L Potassium 3.8 (3.4-5.1) mMol/L Chloride 105 (98-107) mMol/L Carbon Dioxide 26.5 (20.0-31.0) mMol/L Anion Gap 9 (7-16) BUN 5 L (9-23) mg/dL Creatinine 0.8 (0.6-1.3) mg/dL Estim Creat Clear Calc 136.3 (>60) mL/min eGFR > 60 (60 - ) See Note BUN/Creatinine Ratio 6 L (12-20) Ratio Glucose 100 (74-106) mg/dL Calculated Osmolality 276 (275-295) Calcium 8.9 (8.3-10.6) mg/dL Corrected Calcium 9.2 (8.5-10.1) mg/dL Total Bilirubin 0.6 (0.3-1.2) mg/dL AST 12 (0-34) U/L ALT 8 L (10-49) U/L Alkaline Phosphatase 94 (46-116) U/L Total Protein 7.2 (5.7-8.2) gm/dL Albumin 3.6 (3.5-5.0) gm/dL Globulin 3.6 H (2.3-3.5) gm/dL Albumin/Globulin Ratio 1.0 L (1.2-2.2) Blood Type B Positive Antibody Screen NEGATIVE Crossmatch See Detail Blood Bank Wristband ID Yes Discharge Plan Plan Patient Disposition: HOME (Self Care) Prescriptions/Referrals Prescriptions/Med Rec: No Action methylprednisolone [Medrol (Derrick)] 4 mg tablets,dose pack 4 mg PO QAM Qty: 21 0RF folic acid 1 mg tablet 1 mg PO QDAY Qty: 30 2RF azathioprine 50 mg tablet 50 mg PO QDAY Qty: 30 1RF Entyvio 300 mg recon soln 300 mg IV .[id number] Qty: 1 0RF Rx Instructions: This will be the fifth infusion, after this will be every 8 weeks Entyvio Pen 108 mg/0.68 mL pen injector 108 mg subcut .q 2 weeks Qty: 2 11RF Rx Instructions: Alternate injection sites mesalamine 500 mg capsule, extended release 500 mg PO TID 30 Days Qty: 90 2RF pantoprazole [Protonix] [address] for susp in packet 40 mg PO QDAY Qty: 30 0RF Referrals: No Primary/Family,Physician [Primary Care Provider] - In 1 week Problem List Clinical Impression: Symptomatic anemia, Transfusion of blood during current hospitalization, Left ankle swelling Patient/Caregiver Discharge Instructions Education Materials: ED Anemia Type Not Specified Print Language: Amharic Stand Alone Forms: [employer] Award Info., Patient Portal Info Letter
== END 2024-10-31 16:09 | disposition home or self-care (01) ==
PROVIDERS: Physician Assistant; Emergency Provider Emergency Medicine
DX: D64.9 Anemia, unspecified (principal); M25.472 Effusion, left ankle
CPT/HCPCS: 36415; 36430; 80053; 85025; 86850; 86900; 86901; 86902; 86921; 86922; 93971; 99285; P9016

== ENCOUNTER 2024-11-04 15:28 | Outpatient (AMB) | payer MEDICAID, SELFPAY ==
--- NOTE | 2024-11-04 15:19 | PD.RESCLINIC ---
Allergies/Meds Allergies & Medications Allergies infliximab-dyyb Allergy (Severe, Verified 11/04/24 16:33) Difficulty Breathing Medication Reconciliation azathioprine 50 mg tablet 50 mg PO QDAY #30 tabs 05/20/24 [Rx Confirmed 10/28/24] folic acid 1 mg tablet 1 mg PO QDAY #30 tabs 05/20/24 [Rx Confirmed 10/28/24] vedolizumab 300 mg intravenous solution (Entyvio) 300 mg IV .[id number] Ulcerative Colitis #1 ea 07/22/24 [Rx Confirmed 10/28/24] Entyvio Pen 108 mg/0.68 mL subcutaneous pen injector (vedolizumab) 108 mg (0.68 mL) subcut .q 2 weeks Ulcerative Colitis #2 pens 08/26/24 [Rx Confirmed 10/28/24] mesalamine 500 mg capsule,extended release 500 mg PO TID 1 month #90 caps 09/23/24 [Rx Confirmed 10/28/24] ondansetron 4 mg disintegrating tablet 4 mg PO Q8H PRN nausea and vomiting #20 tabs 11/04/24 [Rx Confirmed 11/04/24] pantoprazole 40 mg granules delayed-release for susp in packet (Protonix) 40 mg PO QDAY #30 ea 11/04/24 [Rx Confirmed 11/04/24] prednisone 5 mg tablet See Taper PO TID #100 tabs 11/04/24 [Rx Confirmed 11/04/24] MA Intake Visit Data Collection New Patient or Established: Established Patient (seen at [facility] within 3 years) Seen by Clinical Staff ONLY (RN/JAKOB): No Pain Present Currently: No Pain scale:: 0 Pain Scale Used: Acevedo-Jett/Numerical Dietetic Assistant Required: No PCP or OBGYN visit in last 3 months: Yes Hx Now: No Do You Feel Safe at Home: Yes Authorities Contacted: N/A Smoking Status Smoking Status: Never smoker For Televisit only Telemed Video/Phone Visit: Yes Verbal consent obtained for Telemed visit?: Yes Verbal Consent witness name: terrance mcclellan ma Telemed Video/Phone visit w/Clinical Staff: 21-30 min Immunization / Flu Flu Vaccine in the Last 12 Months: Yes Flu Vaccine Exclusion Criteria: Already Received Past Medical History Past Medical History NEUROLOGIC: Negative Neurological Disorders or Seizures CARDIAC: Negative Cardiac Disorders, Myocardial Infarction, Cardiac Arrhythmia, Atrial Fibrillation, Angina, Heart Murmur, Coronary Artery Disease, Atherosclerotic Heart Disease, Peripheral Vascular Disease, Hypercholesterolemia, Aneurysm, Congestive Heart Failure, Congenital Heart Disease, Valvular Heart Disease, Rheumatic Fever, Cardiomyopathy, Edema, Pericarditis, Cellulitis, Deep Vein Thrombosis, Hypertension, Hypotension or Varicose Veins RESPIRATORY: Negative Chronic Obstructive Pulmonary Disease (COPD) or Asthma GASTROINTESTINAL: Positive Gastrointestinal Disorders, Gastrointestinal Bleed, Ulcerative Colitis, Irritable Bowel and Obesity; Negative Hepatitis, Cirrhosis, Pancreatitis, Celiac Disease, Gall Bladder Disease, Esophageal Varices, Hernandez's Esophagus, Colitis, Diverticulitis, Diverticulosis, Ulcer, Colorectal Cancer, Crohn's Disease, Obstructive Bowel, Hiatal Hernia, Hemorrhoids or Gastroesophageal Reflux Disease GENITOURINARY: Negative Genitourinary Disorders, Renal Disease, Kidney Stones, Polycystic Kidney Disease, Neurogenic Bladder, Inguinal Hernia, Dialysis, Prostate Cancer or Benign Prostatic Hyperplasia REPRODUCTIVE: Negative Breast Cancer, Pelvic Inflammatory Disease or Testicular Cancer MUSCULOSKELETAL: Negative Bone Cancer ENT: Negative Cataracts, Glaucoma, Blind, Retinal Detachment, Macular Degeneration, Ear Infection, Deafness or Eye Prosthesis ENDOCRINE: Positive Endocrine Disorders and Hypothyroidism; Negative Diabetes Mellitus Type 1, Diabetes Mellitus Type 2, Hypoglycemia, Norcross's Syndrome, Evans's Disease, Hyperthyroidism, Parathyroid Disease, Pituitary Disease, Systemic Lupus Erythematosus, Syndrome of Inappropriate Antidiuretic Hormone (SIADH), Adrenal Disease or Graves' Disease HEMATOLOGIC: Positive Blood Disorders and Anemia; Negative Leukemia, Hemophilia, Thalassemia, Sickle Cell Disease or Clotting Problems PSYCHO/SOCIAL: Positive Anxiety OTHER HISTORY: Positive Hospitalization and Blood Transfusions; Negative Down Syndrome, Developmental Delay, Shingles, Falls, Blood Transfusion Reaction, Anesthesia Reactions, Organ Transplant, Chemotherapy, Radiation Therapy, Hyperbaric Therapy, MRSA, VRSA, Vancomycin-Resistant Enterococci, Human Immunodeficiency Virus (HIV), Chicken Pox, Measles, Mumps, Rubella (Afghan Measles), Pertussis, Clostridium Difficile, Cancer, Breast Cancer, Cervical Cancer, Colorectal Cancer, Lung Cancer, Ovarian Cancer, Prostate Cancer or Testicular Cancer Family History FAMILY HISTORY: Negative Family Psychiatric Problems, Family Respiratory Disorders, Family Cardiac Disorders, Family Gastrointestinal Problems, Family Cancer, Family Surgery or Family Anesthesia Reaction Surgical History SURGICAL: Positive Section; Negative Cardiac Surgery, Pacemaker, Endocrine Surgery, Ear Surgery, Eye Surgery, Nose Surgery, Oral Surgery, Throat Surgery, Abdominal Surgery, Nephrectomy, Transurethral Resection, Joint Replacement, Neurologic Surgery, Brain Shunt, Mastectomy, Lumpectomy, Hysterectomy, Tubal Ligation, Vasectomy or Organ Transplant Social History SMOKING STATUS: Smoking status: Never smoker SECOND HAND EXPOSURE: second hand exposure: No ALCOHOL: Alcohol Intake: Never HOUSING: Housing: House LIVES WITH: Lives With: Spouse Patient Eduardo Bates Social History Living Situation History Housing: House Housing Other:: Pt from home Tobacco History Smoking Status: Never smoker Second Hand Smoke Exposure: No Alcohol History Alcohol Intake: Never Domestic Abuse History Do You Feel Safe at Home: Yes Review of Systems Report any current symptoms Only answer those that you have currently: Past Medical History Past Medical History Have you ever been diagnosed with any of the following: Neurological Problems Seizures: No Cardiology Problems Myocardial Infarction: No Cardiac Arrhythmia: No Atrial Fibrillation: No Angina: No Heart Murmur: No Coronary Artery Disease: No Atherosclerotic Heart Disease: No Peripheral Vascular Disease: No Hypercholesterolemia: No Aneurysm: No Congestive Heart Failure: No Congenital Heart Disease: No Valvular Heart Disease: No Rheumatic Fever: No Cardiomyopathy: No Edema: No Pericarditis: No Cellulitis: No Deep Vein Thrombosis: No Hypertension: No Hypotension: No Varicose Veins: No Respiratory Problems Chronic Obstructive Pulmonary Disease (COPD): No Asthma: No Stomache/Intestinal Problems Hepatitis: No Cirrhosis: No Pancreatitis: No Celiac Disease: No Gall Bladder Disease: No Gastrointestinal Bleed: Yes Esophageal Varices: No Hernandez's Esophagus: No Colitis: No Ulcerative Colitis: Yes Diverticulitis: No Diverticulosis: No Ulcer: No Colorectal Cancer: No Irritable Bowel: Yes Crohn's Disease: No Obstructive Bowel: No Hiatal Hernia: No Hemorrhoids: No Gastroesophageal Reflux Disease: No Obesity: Yes Genital/Urinary Problems Renal Disease: No Kidney Stones: No Polycystic Kidney Disease: No Neurogenic Bladder: No Inguinal Hernia: No Dialysis: No Prostate Cancer: No Benign Prostatic Hyperplasia: No Reproductive Problems Breast Cancer: No Pelvic Inflammatory Disease: No Testicular Cancer: No Musculoskeletal Problems Bone Cancer: No Head,Eye,Nose,Throat Problems Cataracts: No Glaucoma: No Blind: No Retinal Detachment: No Macular Degeneration: No Chronic Ear Infections: No Deafness: No Eye Prosthesis: No Endocrine Problems Diabetes Mellitus Type 1: No Diabetes Mellitus Type 2: No Hypoglycemia: No Norcross's Syndrome: No Montour's Disease: No Hyperthyroidism: No Hypothyroidism: Yes Parathyroid Disease: No Pituitary Disease: No Systemic Lupus Erythematosus: No Syndrome of Inappropriate Antidiuretic Hormone: No Adrenal Disease: No Graves' Disease: No Blood Problems Anemia: Yes Leukemia: No Hemophilia: No Thalassemia: No Sickle Cell Disease: No Clotting Problems: No Psychologic Problems Anxiety: Yes Other Problems Hospitalization: Yes Down Syndrome: No Developmental Delay: No Shingles: No Falls: No Blood Transfusions: Yes Blood Transfusion Reaction: No Anesthesia Reactions: No Organ Transplant: No Chemotherapy: No Radiation Therapy: No Hyperbaric Therapy: No MRSA: No VRSA: No Vancomycin-Resistant Enterococci: No Human Immunodeficiency Virus (HIV): No Chicken Pox: No Measles: No Mumps: No Rubella (Afghan Measles): No Pertussis: No Clostridium Difficile: No Cancer: No Cervical Cancer: No Lung Cancer: No Ovarian Cancer: No Surgical History Hysterectomy: No Pacemaker: No History of Present Illness HPI Narrative 23-year-old female with past medical history of ulcerative colitis and chronic anemia seen in the [facility] today due to having increased bowel movements throughout the day as well as night since her second dose of her interview self-administered dose. Patient recently started her Entyvio dosages self administration via pen on October 04 after which she did not have any symptoms and she went and saw her GI specialist. She mentioned that her GI specialist was okay with the current plan, but ordered some blood work as well as a colonoscopy that will be scheduled for November. Patient mentioned that after his second shot which was on October 18 she did have left abdominal pain as well as decreased appetite and increased bowel movements. She mentioned that she has been having around 10 bowel movements throughout the daytime and 4 bowel movements throughout the night. Most of these bowel movements have been diarrhea-like as well as bloody and are accompanied by abdominal pain and cramping after she eats. She mentioned that she has also had some nausea and vomiting in the mornings. On physical examination with edmundo Collier, medical authorization specialist, present patient had moderate tenderness on the left side of the abdomen as well as in the epigastric region. Given the patient's symptoms there is some clinical suspicion for possible pancreatitis as Entyvio is known to cause acute pancreatitis as a side effect. Patient denied having any increased intake and alcohol and does not recall any changes in her diet. Patient also complained about some left foot pain, but denies any trauma to this. Patient was advised to get blood work done prior to next Entyvio administration which is to on November 01, 2024. Last menstrual period was on October 05, 2024 11/04/24: Patient scheduled an appointment for tele-visit. Patient reported that she received her blood test critical lab value from [facility] and immediately went to the supervisor border department will transfuse her 2 units PRBC on 10/30 however she did not had repeat H&H. She reported that she continues to have more than 10 episodes of bowel movement with dark stool. Her abdominal pain is a little better than last week however continues to persist after eating. She reports to have improvement in her left foot pain. She feels better after receiving blood transfusion. CBC was significant for hemoglobin 6.4 dropped from 9.0 reported on 10/29. HCT 24.9. Monocytes were 1.0. Platelet count 543. Lipase was 22. Patient was advised to follow-up with H&H by tomorrow to evaluate if she needs another transfusion if necessary. She was given a longer steroid taper for the last 4 weeks to help up with UC mild flare. She already completed the course of Dosepak. She was also given a prescription refill for Protonix 40 mg once a day. 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 She was also advised to continue taking her Entyvio infusion given lipase was unremarkable and abdominal pain has subsided. Follow-up on H&H and advised to schedule an appointment in a week time to evaluate for symptoms. Review of Systems Review of Systems Systems Reviewed: All systems reviewed, normal except as documented Objective/Exam Narrative Physical exam: Tele-call Assessment & Plan Diagnosis / Problem List (1) Ulcerative colitis: Status: Chronic Qualifiers: Digestive disease complication type: with rectal bleeding Ulcerative colitis location: other ulcerative colitis Qualified Code(s): K51.811 - Other ulcerative colitis with rectal bleeding Assessment & Plan: ? Patient has a history of UC on Entyvio infusions. Televisit call was scheduled today and she reported that she continues to pass more than 10 bowel movements with dark blood. Her abdominal pain has subsided a little bit after receiving 2 units PRBC given by supervisor border department which patient is following as outpatient. ? CBC from 10/30 showed critical hemoglobin 6.4 and platelet count 543, monocytes 1.0. Lipase was 22. ?Patient received 2 units PRBC on 10/30 prescribed by patient's supervisor border department. Plan: ? Advised to continue Entyvio infusion as lipase was unremarkable ?Continue pentassa and azathiprione ?Longer steroid taper was given as follows 3 Pills(15 mg) twice daily for first week 2 Pills(10mg) twice daily for second week 1 Pill(5mg) twice daily for third week 1 Pill(5mg) once a day for a week ?Repeated H&H to evaluate posttransfusion hemoglobin as patient is still passing blood in the stool ?In case of critical hemoglobin patient would need to go to the ED to receive transfusion ?Reported improvement in her left foot pain and abdominal pain after the transfusion ? Follow-up in a week -- Patient was seen and discussed with attending physician, Dr.Watanakunakorn Dr. Alley MD, PGY 2 Orders: Orders Hemoglobin and Hematocrit 11/05/24 K51.811 - Other ulcerative colitis with rectal bleeding Additional Assessment Internal Medicine Attending Note: Case discussed with and agree with note and management plan of Resident Physician as per Resident's Note above. Issues of concern for present visit are as follows: Follow-up visit completed via telehealth. At last visit, we had checked lipase level and CBC due to frequent bloody bowel movements accompanied by abdominal pain and cramping. Lipase level normal. Hemoglobin found to be low at 6.4. This reading was not called to our office. It was apparently called to the patient directly. She was seen by her supervisor border department who transfused 2 units PRBCs. We will recheck a hemoglobin and hematocrit today to see if further transfusion is needed, and a longer steroid taper will be given to help with the flare of ulcerative colitis. Patient may continue Entyvio as lipase level was unremarkable and abdominal pain has subsided. Pain more likely to be from Crohn's. Follow-up in 1 to 2 weeks. Alexis Howard MD Physician Billing Established Patient Established Patient: E/M Level 2-CPT 50066 Office Procedures [facility] Level of Care Nursing/Assessment Patient Status: Established Patient Nursing Assessment/Reassessment: Medication Reconciliation and Update PMH in EMR Coordination of Care: Complex Care and Chronic Disease 1-5, Consent,records obtained, informed consent, Education Simp Pt/Fam, Lab and Imaging orders and Staff clarify orders Established Patient Charge Established Patient Point Assignment: 85 Telehealth Telemed Phone/Video with patient at home & Dr,PA,AIRPLANE PATROLLER: Yes
== END 2024-11-04 15:57 | disposition home or self-care (01) ==
LOC: HODAHC 15:28
PROVIDERS: PCP Internal Medicine; Referring Provider Internal Medicine; Visit Provider Student in an Organized Health Care Education/Training Program
DX: K51.811 Other ulcerative colitis with rectal bleeding (principal)
CPT/HCPCS: 99212; G0463

== ENCOUNTER 2025-01-21 10:36 | Outpatient (AMB) | payer MEDICAID, SELFPAY ==
--- NOTE | 2025-01-21 11:43 | ACNOTE_ITS ---
Allergies/Meds Allergies & Medications Allergies infliximab-dyyb Allergy (Severe, Verified 11/04/24 16:33) Difficulty Breathing MA Intake Visit Data Collection PCP or OBGYN visit in last 3 months: Yes Smoking Status Smoking Status: Never smoker Immunization / Flu Flu Vaccine in the Last 12 Months: Yes Flu Vaccine Exclusion Criteria: No Exclusion Criteria Past Medical History Past Medical History NEUROLOGIC: Negative Neurological Disorders or Seizures CARDIAC: Negative Cardiac Disorders, Myocardial Infarction, Cardiac Arrhythmia, Atrial Fibrillation, Angina, Heart Murmur, Coronary Artery Disease, Atherosclerotic Heart Disease, Peripheral Vascular Disease, Hyperchole sterolemia, Aneurysm, Congestive Heart Failure, Congenital Heart Disease, Valvular Heart Disease, Rheumatic Fever, Cardiomyopathy, Edema, Pericarditis, Cellulitis, Deep Vein Thrombosis, Hypertension, Hypotension or Varicose Veins RESPIRATORY: Negative Chronic Obstructive Pulmonary Disease (COPD) or Asthma GASTROINTESTINAL: Positive Gastrointestinal Disorders, Gastrointestinal Bleed, Ulcerative Colitis, Irritable Bowel and Obesity; Negative Hepatitis, Cirrhosis, Pancreatitis, Celiac Disease, Gall Bladder Disease, Esophageal Varices, Hernandez's Esophagus, Colitis, Diverticulitis, Diverticulosis, Ulcer, Colorectal Cancer, Crohn's Disease, Obstructive Bowel, Hiatal Hernia, Hemorrhoids or Gastroesophageal Reflux Disease GENITOURINARY: Negative Genitourinary Disorders, Renal Disease, Kidney Stones, Polycystic Kidney Disease, Neurogenic Bladder, Inguinal Hernia, Dialysis, Prostate Cancer or Benign Prostatic Hyperplasia REPRODUCTIVE: Negative Breast Cancer, Pelvic Inflammatory Disease or Testicular Cancer MUSCULOSKELETAL: Negative Bone Cancer ENT: Negative Cataracts, Glaucoma, Blind, Retinal Detachment, Macular Degeneration, Ear Infection, Deafness or Eye Prosthesis ENDOCRINE: Positive Endocrine Disorders and Hypothyroidism; Negative Diabetes Mellitus Type 1, Diabetes Mellitus Type 2, Hypoglycemia, Alla's Syndrome, Pima's Disease, Hyperthyroidism, Parathyroid Disease, Pituitary Disease, Systemic Lupus Erythematosus, Syndrome of Inappropriate Antidiuretic Hormone (SIADH), Adrenal Disease or Graves' Disease HEMATOLOGIC: Positive Blood Disorders and Anemia; Negative Leukemia, Hemophilia, Thalassemia, Sickle Cell Disease or Clotting Problems PSYCHO/SOCIAL: Positive Anxiety OTHER HISTORY: Positive Hospitalization and Blood Transfusions; Negative Down Syndrome, Developmental Delay, Shingles, Falls, Blood Transfusion Reaction, Anesthesia Reactions, Organ Transplant, Chemotherapy, Radiation Therapy, Hyperbaric Therapy, MRSA, VRSA, Vancomycin-Resistant Enterococci, Human Immunodeficiency Virus (HIV), Chicken Pox, Measles, Mumps, Rubella (Slovak Measles), Pertussis, Clostridium Difficile, Cancer, Breast Cancer, Cervical Cancer, Colorectal Cancer, Lung Cancer, Ovarian Cancer, Prostate Cancer or Testicular Cancer Family History FAMILY HISTORY: Negative Family Psychiatric Problems, Family Respiratory Disorders, Family Cardiac Disorders, Family Gastrointestinal Problems, Family Cancer, Family Surgery or Family Anesthesia Reaction Surgical History SURGICAL: Positive Section; Negative Cardiac Surgery, Pacemaker, Endocrine Surgery, Ear Surgery, Eye Surgery, Nose Surgery, Oral Surgery, Throat Surgery, Abdominal Surgery, Nephrectomy, Transurethral Resection, Joint Replacement, Neurologic Surgery, Brain Shunt, Mastectomy, Lumpectomy, Hysterectomy, Tubal Ligation, Vasectomy or Organ Transplant Social History SMOKING STATUS: Smoking status: Never smoker SECOND HAND EXPOSURE: second hand exposure: No ALCOHOL: Alcohol Intake: Never HOUSING: Housing: House LIVES WITH: Lives With: Spouse Patient Portal Questionaires Social History Living Situation History Housing: House Housing Other:: Pt from home Tobacco History Smoking Status: Never smoker Second Hand Smoke Exposure: No Alcohol History Alcohol Intake: Never Review of Systems Report any current symptoms Only answer those that you have currently: Past Medical History Past Medical History Have you ever been diagnosed with any of the following: Neurological Problems Seizures: No Cardiology Problems Myocardial Infarction: No Cardiac Arrhythmia: No Atrial Fibrillation: No Angina: No Heart Murmur: No Coronary Artery Disease: No Atherosclerotic Heart Disease: No Peripheral Vascular Disease: No Hypercholesterolemia: No Aneurysm: No Congestive Heart Failure: No Congenital Heart Disease: No Valvular Heart Disease: No Rheumatic Fever: No Cardiomyopathy: No Edema: No Pericarditis: No Cellulitis: No Deep Vein Thrombosis: No Hypertension: No Hypotension: No Varicose Veins: No Respiratory Problems Chronic Obstructive Pulmonary Disease (COPD): No Asthma: No Stomache/Intestinal Problems Hepatitis: No Cirrhosis: No Pancreatitis: No Celiac Disease: No Gall Bladder Disease: No Gastrointestinal Bleed: Yes Esophageal Varices: No Hernandez's Esophagus: No Colitis: No Ulcerative Colitis: Yes Diverticulitis: No Diverticulosis: No Ulcer: No Colorectal Cancer: No Irritable Bowel: Yes Crohn's Disease: No Obstructive Bowel: No Hiatal Hernia: No Hemorrhoids: No Gastroesophageal Reflux Disease: No Obesity: Yes Genital/Urinary Problems Renal Disease: No Kidney Stones: No Polycystic Kidney Disease: No Neurogenic Bladder: No Inguinal Hernia: No Dialysis: No Reproductive Problems Breast Cancer: No Pelvic Inflammatory Disease: No Musculoskeletal Problems Bone Cancer: No Head,Eye,Nose,Throat Problems Cataracts: No Glaucoma: No Blind: No Retinal Detachment: No Macular Degeneration: No Chronic Ear Infections: No Deafness: No Eye Prosthesis: No Endocrine Problems Diabetes Mellitus Type 1: No Diabetes Mellitus Type 2: No Hypoglycemia: No Miami's Syndrome: No Pima's Disease: No Hyperthyroidism: No Hypothyroidism: Yes Parathyroid Disease: No Pituitary Disease: No Systemic Lupus Erythematosus: No Syndrome of Inappropriate Antidiuretic Hormone: No Adrenal Disease: No Graves' Disease: No Blood Problems Anemia: Yes Leukemia: No Hemophilia: No Thalassemia: No Sickle Cell Disease: No Clotting Problems: No Psychologic Problems Anxiety: Yes Other Problems Hospitalization: Yes Down Syndrome: No Developmental Delay: No Shingles: No Falls: No Blood Transfusions: Yes Blood Transfusion Reaction: No Anesthesia Reactions: No Organ Transplant: No Chemotherapy: No Radiation Therapy: No Hyperbaric Therapy: No MRSA: No VRSA: No Vancomycin-Resistant Enterococci: No Human Immunodeficiency Virus (HIV): No Chicken Pox: No Measles: No Mumps: No Rubella (Slovak Measles): No Pertussis: No Clostridium Difficile: No Cancer: No Cervical Cancer: No Lung Cancer: No Ovarian Cancer: No Surgical History Hysterectomy: No Pacemaker: No History of Present Illness HPI Narrative 23-year-old female with past medical history of ulcerative colitis and chronic anemia [facility] due to having increased bowel movements throughout the day as well as night since her second dose of her interview self-administered dose. Patient recently started her Entyvio dosages self administration via pen on October 04 after which she did not have any symptoms and she went and saw her GI specialist. She mentioned that her GI specialist was okay with the current plan, but ordered some blood work as well as a colonoscopy that will be scheduled for November. Patient mentioned that after his second shot which was on October 18 she did have left abdominal pain as well as decreased appetite and increased bowel movements. She mentioned that she has been having around 10 bowel movements throughout the daytime and 4 bowel movements throughout the night. Most of these bowel movements have been diarrhea-like as well as bloody and are accompanied by abdominal pain and cramping after she eats. She mentioned that she has also had some nausea and vomiting in the mornings. On physical examination with edmundo Collier, medical imaging technologist, present patient had moderate tenderness on the left side of the abdomen as well as in the epigastric region. Given the patient's symptoms there is some clinical suspicion for possible pancreatitis as Entyvio is known to cause acute pancreatitis as a side effect. Patient denied having any increased intake and alcohol and does not recall any changes in her diet. Patient also complained about some left foot pain, but denies any trauma to this. Patient was advised to get blood work done prior to next Entyvio administration which is to on November 01, 2024. Last menstrual period was on October 05, 2024 11/04/24: Patient scheduled an appointment for tele-visit. Patient reported that she received her blood test critical lab value from [facility] and immediately went to the storage manager will transfuse her 2 units PRBC on 10/30 however she did not had repeat H&H. She reported that she continues to have more than 10 episodes of bowel movement with dark stool. Her abdominal pain is a little better than last week however continues to persist after eating. She reports to have improvement in her left foot pain. She feels better after receiving blood transfusion. CBC was significant for hemoglobin 6.4 dropped from 9.0 reported on 10/29. HCT 24.9. Monocytes were 1.0. Platelet count 543. Lipase was 22. Patient was advised to follow-up with H&H by tomorrow to evaluate if she needs another transfusion if necessary. She was given a longer steroid taper for the last 4 weeks to help up with UC mild flare. She already completed the course of Dosepak. She was also given a prescription refill for Protonix 40 mg once a day. Dose instructions for steroid taper was printed and she was advised to picker packer tomorrow from the clinic. She was also advised to continue taking her Entyvio infusion given lipase was unremarkable and abdominal pain has subsided. Follow-up on H&H and advised to schedule an appointment in a week time to evaluate for symptoms. 01/21/2025 Reports resolution of bloody stool, following with Dr. Osman (GI) who recently started monthly Risankizumab (SKYRIZI) infusions, ENTYVIO has been discontinued. Overall, her symptoms have improved after second infusion of SKYRIZI. Denies fever, chills, bloody stool, diarrhea, nausea, vomiting, constipation, skin rashes or ulcers. She has mild abdominal pain on and off but relatively improved and controlled. Last H&H with Hgb 7.5 from 01/04/2025 after transfusions. Complaints of fatigue but generally but overall improving. Continued on steroids taper. GI discontinued IRON supplements. She has an appt in about 2 weeks. Periods are regular, no heavy bleeds, LMP 12/06/2024. Labs from 01/04/2025: Calprotectin 1860, FERRITIN 8, CRP 12, B12 249, VITAMIN D 12.5, ALBUMIN 3.3, Hgb 7.5, MCV 78, PLT 494, normal renal panel and electrolytes. Orders: Repeat CBC today given fatigue and scleral icterus on exam, return to office 6 weeks. Medications: Ordered PREDNISONE taper, starting with 20 mg weekly, decrease by 5 mg every week. Risankizumab managed by GI. Next visit: follow-up CBC. Objective/Exam Narrative Physical exam: GENERAL * Normal appearing female, NAD HEENT * NCAT.?RICHAR. Oral mucosa is moist. Patent Nares * Scleral icterus bilaterally NECK * Supple, nontender, no thyromegaly, no meningismus, no JVD, no step offs CHEST * RRR, no m/g/r * CTAB, no w/r/r. Symmetrical chest rise. No intercostal subcostal retraction * Atraumatic, nontender, no crepitus, symmetrical expansion. ABDOMEN * Soft, flat, nontender. No guarding/rebound tenderness/masses. * Bowel sounds presents EXTREMITIES * No edema/cyanosis.? SKIN * Diffuse jaundice * warm and dry, no rashes. NEUROMUSCULAR * No focal neurologic deficits. PSYCHIATRY * Normal mood and affect, cooperative, no SI or HI or hallucinations. Assessment & Plan Diagnosis / Problem List (1) Ulcerative colitis: Status: Chronic Qualifiers: Digestive disease complication type: with rectal bleeding Ulcerative colitis location: other ulcerative colitis Qualified Code(s): K51.811 - Other u lcerative colitis with rectal bleeding (2) Microcytic hypochromic anemia: Status: Chronic (3) Epigastric abdominal pain: Status: Acute (4) Nausea & vomiting: Status: Acute Qualifiers: Vomiting type: unspecified Qualified Code(s): R11.2 - Nausea with vomiting, unspecified (5) Gastrointestinal bleeding: Status: Acute Assessment & Plan: Currently on no new biologic, Risankizumab, which is managed by GI, Dr. Lesly Chatman. Reports improvement in her symptoms, including bloody stool, diarrhea, and abdominal pain. She has been on PREDNISONE taper, currently taking 25 mg daily, will continue with taper. She received 2 RBCs on 10/30/2024, CBC from earlier this month showed Hgb 7.5. Reported some fatigue, had slight x-rays and jaundice on exam, will follow-up with CBC to rule out hemolysis. Denies headaches, lightheadedness, dizziness, fall or trauma, syncope or presyncope, abdominal pain, N/V/D/C, abnormal bleed, or urinary symptoms. Orders: Repeat CBC today given fatigue and scleral icterus on exam, return to office 6 weeks. Medications: Ordered PREDNISONE taper, starting with 20 mg weekly, decrease by 5 mg every week. Risankizumab managed by GI. Next visit: follow-up CBC. Orders: Orders Hemoglobin and Hematocrit 01/21/25 D64.9 - Anemia, unspecified, K51.811 - Other ulcerative colitis with rectal bleeding Additional Assessment Attending note: I, Alexis Howard MD, attest that I was physically present for the storey portions of the service and evaluated the patient with the resident and I reviewed and discussed the case with the resident and agree with the resident's findings and plans of care as documented above. Alexis Howard MD Physician Billing Established Patient Established Patient: E/M Level 3-CPT 14922
== END 2025-01-21 12:13 | disposition home or self-care (01) ==
LOC: HODAHC 10:36
PROVIDERS: PCP Internal Medicine; Referring Provider Internal Medicine; Supervising Provider Internal Medicine
DX: K51.811 Other ulcerative colitis with rectal bleeding (principal); D50.9 Iron deficiency anemia, unspecified; R11.2 Nausea with vomiting, unspecified
CPT/HCPCS: 99213; G0463

== ENCOUNTER 2025-01-29 12:28 | Emergency (ER) | payer MEDICAID, SELFPAY ==
[2025-01-29] VITALS (8 sets, daily range): BP systolic 103–112; BP diastolic 59–67; PULSE 77–111; RESP 16–20; TEMP 36.7–37.4; O2SAT 95–100; BMI 31.7
[2025-01-29 13:54] LABS: Basophils % (Auto) 0 % (0-2.5); Eosinophils # (Auto) 0.1 Thou/mm3 (0.0-0.5); Eosinophils % (Auto) 1 % (0-10); Hematocrit 24.6 % (36.0-46.0); Immature Granulocytes % (Auto) 0 % (0-0); Immature Granulocytes Auto 0.03 Thou/mm3 (0.00-0.00); Lymphocytes # (Auto) 1.5 Thou/mm3 (1.0-4.8); Lymphocytes % (Auto) 18 % (10-50); Mean Corpuscular Hemoglobin 18.8 pg (25.0-35.0); Mean Corpuscular Volume 67 fL (80-100); Monocytes # (Auto) 1.3 Thou/mm3 (0.0-0.8); Monocytes % (Auto) 15 % (0-12); Neutrophils # (Auto) 5.7 Thou/mm3 (1.8-7.7); Neutrophils % (Auto) 67 % (37-80); Nucleated Red Blood Cell # 0.02 Thou/mm3 (0.00-0.00); Nucleated Red Blood Cell % 0 /100 WBC (0); Platelet Count 252 Thou/mm3 (140-440); RDW Standard Deviation 41.8 fL (36.4-46.3); Red Blood Count 3.67 Miln/mm3 (4.00-5.20); White Blood Count 8.6 Thou/mm3 (3.6-11.0)
[2025-01-29 13:58] LABS: Hemoglobin 6.9 g/dL (12.0-16.0)
[2025-01-29 14:11] LABS: Alanine Aminotransferase 11 U/L (10-49); Albumin, Serum 3.8 gm/dL (3.5-5.0); Albumin/Globulin Ratio 1.5 (1.2-2.2); Alkaline Phosphatase 55 U/L (46-116); Anion Gap 7 (7-16); Aspartate Amino Transferase 11 U/L (0-34); BUN/Creatinine Ratio 10 Ratio (12-20); Bilirubin,Total 0.8 mg/dL (0.3-1.2); Blood Urea Nitrogen 9 mg/dL (9-23); Calcium 8.6 mg/dL (8.3-10.6); Calcium (Corrected) 8.8 mg/dL (8.5-10.1); Carbon Dioxide 27.7 mMol/L (20.0-31.0); Chloride 104 mMol/L (98-107); Creatinine (Component) 0.9 mg/dL (0.6-1.3); Estimated Creatinine Clearance 119.8 mL/min (>60); Globulin 2.5 gm/dL (2.3-3.5); Glucose 104 mg/dL (74-106); Osmolality,Calculated 276 (275-295); Potassium 3.9 mMol/L (3.4-5.1); Sodium 139 mMol/L (136-145); Total Protein 6.3 gm/dL (5.7-8.2); eGFR > 60 See Note
--- NOTE | 2025-01-29 14:20 | PD.EDRME ---
Rapid Medical Screening Exam RME Arrival date/time: 01/29/25 12:28 Chief Complaint: Recheck/Abnormal Lab/Rx Time Seen by Provider: 01/29/25 12:46 Vital signs: Vital Signs Temperature 98.6 F 01/29/25 13:09 Pulse Rate 111 H 01/29/25 13:09 Respiratory Rate 16 01/29/25 13:09 Blood Pressure 112/67 01/29/25 13:09 Pulse Oximetry (%) 100 01/29/25 13:09 Oxygen Delivery Method Room Air 01/29/25 13:09 Vital signs reviewed by provider: Yes RME Narrative: 24-year-old female with past medical history of ulcerative colitis presents for evaluation of anemia. Patient reports that she had a hemoglobin of 6.5 x 6 days ago. She is endorsing progressive weakness. She reports chronic ulcerative colitis flare for which she is on prednisone.
[2025-01-29 15:38] LABS: Partial Thromboplastin Time 23.2 Seconds (22.0-36.0)
--- NOTE | 2025-01-29 20:55 | EDNOTE_ITS ---
<Statement entered by Hannah Vazquez MD - 01/30/25 23:26> As co-signing physician, I was present and available for consult prn. I concur with the plan and care as documented by the midlevel provider. ED Recheck Abnl Lab Rx-RME/HPI General Chief Complaint: Recheck/Abnormal Lab/Rx Stated Complaint: Hemoglobin 6.8, tired, SOB, dizzy Time Seen by Provider: 01/29/25 12:46 Arrival date/time: 01/29/25 12:28 RME / HPI RME / HPI narrative: 24-year-old female with past medical history of ulcerative colitis presents for evaluation of anemia. Patient reports that she had a hemoglobin of 6.5 x 6 days ago. She is endorsing progressive weakness. She reports chronic ulcerative colitis flare for which she is on prednisone. She is currently under the care of GI specialist from [place] and her GI specialist is aware of her bloody stool. It was worse last week but currently only 1 bloody stool per day. Patient also complaining of mild dizziness. Denies any vomiting blood. Related Data Previous Rx's ?Medication ?Instructions ?Recorded azathioprine 50 mg tablet 50 mg PO QDAY #30 tabs 05/20 folic acid 1 mg tablet 1 mg PO QDAY #30 tabs Entyvio Pen 108 mg/0.68 mL 108 mg (0.68 mL) subcut .q 2 weeks 08/26/24 subcutaneous pen injector Ulcerative Colitis #2 pens (vedolizumab) ondansetron 4 mg disintegrating 4 mg PO Q8H PRN nausea and 11/04/24 tablet vomiting #20 tabs pantoprazole 40 mg granules 40 mg PO QDAY #30 ea 11/04 delayed-release for susp in packet (Protonix) mesalamine 500 mg capsule,extended 500 mg PO TID 180 d ays #540 caps 11/13/24 release prednisone 5 mg tablet See Taper PO TID #100 tabs 0 01/21/25 Allergies Allergy/AdvReac Type Severity Reaction Status Date / Time infliximab-dyyb Allergy Severe Difficulty Verified 01/29/25 12:34 Breathing Review of Systems Review of Systems Narrative Review of Systems: Review of system reviewed and within normal limits except mentioned in HPI ED Exam Narrative Physical exam: VITAL SIGNS: Reviewed. GENERAL APPEARANCE: Alert and interactive, follows commands, no acute distress, HEAD AND FACE: Non-traumatic. ENT: PERRL, pale conjunctiva, eyelid no trauma, Mucous membrane moist. NECK: Supple, nontender, no nuchal rigidity. CHEST: No tenderness, no crepitus, no paradoxical movement, no retractions. LUNGS: Clear, well ventilated, symmetric, no rales, no wheezing, no ronchi, no stridor, good breath sounds bilaterally. HEART: Regular rate, regular rhythm, no murmur, no gallops. ABDOMEN: Soft, positive bowel sounds, nondistended, no guarding, nontender, no rebound, no masses, RECTAL: Deferred. GENITAL: Deferred. NEUROLOGICAL: Gross motor function intact sensory function intact, Appropriate for age. MUSCULOSKELETAL: low back nontender, full range of motion. EXTREMITIES: Nontender, full range of motion. SKIN: Color pale, dry, no rash, no lacerations, no abrasions, no contusions. LYMPHATICS: Deferred. Course Quality Measures none Orders Category Date Time Status Transfuse,blood/blood products ONCE Care 01/29/25 15:02 Completed CBC Stat Lab 01/29/25 13:42 Completed CMP [Comprehensive Metabolic Panel] Stat Lab 01/29/25 13:42 Completed PT [Prothrombin Time with INR] Stat Lab 01/29/25 14:58 Completed PTT [Partial Thromboplastin Time] Stat Lab 01/29/25 14:58 Completed Type and Screen Stat Lab 01/29/25 14:58 Completed prbc [Red Blood Cells] Stat Lab 01/29/25 14:58 Completed Vital Signs Vital signs: Vital Signs Temperature 98.6 F 01/29/25 13:09 Pulse Rate 111 H 01/29/25 13:09 Respiratory Rate 16 01/29/25 13:09 Blood Pressure 112/67 01/29/25 13:09 Pulse Oximetry (%) 100 01/29/25 13:09 Oxygen Delivery Method Room Air 01/29/25 13:09 Recheck / Abnormal Lab / Rx MDM Narrative MDM Narrative:: 24-year-old female with past medical history of ulcerative colitis presents for evaluation of anemia. Patient reports that she had a hemoglobin of 6.5 x 6 days ago. She is endorsing progressive weakness. She reports chronic ulcerative colitis flare for which she is on prednisone. She is currently under the care of GI specialist from [place] and her GI specialist is aware of her bloody stool. It was worse last week but currently only 1 bloody stool per day. Patient also complaining of mild dizziness. Denies any vomiting blood. Patient's hemoglobin was noted to be 6.9. Patient received 2 units of packed RBC no complication noted. Patient data External records reviewed:: None Clinical information provided by:: patient Social determinants that could affect healthcare access:: none Patient has the following chronic illnesses:: Chronic disease How is presenting disease/condition affected by chronic disease/condition?: exacerbated by Evaluation data The following diagnostics were reviewed and interpreted by me:: lab results Lab and/or radiology exams considered but not ordered:: None Interpretation Summary: See results MDM Medications / Prescriptions Medications or Prescriptions considered but not ordered:: None Medication administrations:: 2 units of packed RBC Consultations Consultation(s) initiated? (list below): No Diagnosis Recheck Differential Diagnosis: other (Anemia of chronic disease, history of Crohn's disease) Most likely diagnosis given after review of the tests above:: Anemia of chronic disease Admission Indicated Admission indicated?: not indicated Admission Request Was there a request for admission?: No Disposition Plan Disposition Plan: Discharge Discharge Attestation Discharge Attestation: The patient was given an opportunity to ask questions and understood the discharge instructions. Discharge instructions specifically effects, indications for sooner follow up or return to the emergency department, and the expected course of current diagnosis. Patient condition: Stable Discharge Plan Plan Patient Disposition: HOME (Self Care) Discharge Disposition comment: Stable Prescriptions/Referrals Prescriptions/Med Rec: No Action folic acid 1 mg tablet 1 mg PO QDAY Qty: 30 2RF azathioprine 50 mg tablet 50 mg PO QDAY Qty: 30 1RF Entyvio Pen 108 mg/0.68 mL pen injector 108 mg subcut .q 2 weeks Qty: 2 11RF Rx Instructions: Alternate injection sites pantoprazole [Protonix] [address] for susp in packet 40 mg PO QDAY Qty: 30 0RF ondansetron 4 mg tablet,disintegrating 4 mg PO Q8H PRN (Reason: nausea and vomiting) Qty: 20 0RF prednisone 5 mg tablet See Taper PO TID Qty: 100 0RF Taper: Prednisone Taper 20 mg DAILY for 7 Days 15 mg DAILY for 7 Days 10 mg DAILY for 7 Days 5 mg DAILY for 7 Days Rx Instructions: 20 mg daily for 1 weeks, taper by 5 mg every week mesalamine 500 mg capsule, extended release 500 mg PO TID MDD 1500 mg 180 Days Qty: 540 1RF Referrals: No Primary/Family,Physician [Primary Care Provider] - In 1 week Problem List Clinical Impression: Anemia Patient/Caregiver Discharge Instructions Discharge Activity: activity as tolerated Education Materials: Anemia Additional Instructions: Thank you for the opportunity for serving you today. You are stable for discharged . You are advised to: Follow-up with your PCP in 1 to 2 days Return to ED for worsening of symptoms Print Language: Romanian Stand Alone Forms: [employer] Award Info., Patient Portal Info Letter PA/ADVERTISING COLUMNIST Supervising Physician PA/ONUR Supervising Physician: MD Natanael
[2025-01-30 00:09] VITALS: BP 115/76; PULSE 86; RESP 16; TEMP 37; O2SAT 100
[2025-01-30 01:55] VITALS: BP 104/67; PULSE 84; RESP 16; TEMP 36.9; O2SAT 100
[2025-01-30 02:14] VITALS: BP 110/76; PULSE 80; RESP 16; TEMP 37; O2SAT 99
== END 2025-01-30 02:15 | disposition home or self-care (01) ==
PROVIDERS: Physician Assistant; Emergency Provider Emergency Medicine
DX: D64.9 Anemia, unspecified (principal); K51.911 Ulcerative colitis, unspecified with rectal bleeding
CPT/HCPCS: 36415; 36430; 80053; 85025; 85610; 85730; 86850; 86900; 86901; 86902; 86921; 86922; 99285; P9016

== ENCOUNTER 2025-03-05 15:01 | Outpatient (AMB) | payer MEDICAID, SELFPAY ==
[2025-03-05 15:10] VITALS: BP 107/74; PULSE 94; RESP 18; TEMP 36.3; O2SAT 98; BMI 35.3
--- NOTE | 2025-03-05 15:10 | ACNOTE_ITS ---
Vital Signs 03/05/25 15:10 Height 1.65 m Height Method Stated Weight 96.218 kg Weight Measurement Method Standing Scale BMI 35.3 BP 107/74 Blood Pressure Source Automatic Cuff Blood Pressure Location Right Upper Arm Position Sitting Respiration 18 Pulse 94 Pulse Source Monitor Temp 97.4 F Temp Source Temporal Artery Scan Pulse Oximetry (%) 98 Oxygen Delivery Method Room Air Allergies/Meds Allergies & Medications Allergies infliximab-dyyb Allergy (Severe, Verified 01/29/25 12:34) Difficulty Breathing MA Intake Visit Data Collection New Patient or Established: Established Patient (seen at [facility] within 3 years) Seen by Clinical Staff ONLY (RN/MA): No Reason for Visit:: follow up labs 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 Required: No PCP or OBGYN visit in last 3 months: No Do You Feel Safe at Home: Yes Authorities Contacted: N/A Smoking Status Smoking Status: Never smoker Immunization / Flu Flu Vaccine in the Last 12 Months: Yes Flu Vaccine Exclusion Criteria: Already Received Past Medical History Past Medical History NEUROLOGIC: Negative Neurological Disorders or Seizures CARDIAC: Negative Cardiac Disorders, Myocardial Infarction, Cardiac Arrhythmia, Atrial Fibrillation, Angina, Heart Murmur, Coronary Artery Disease, Atherosclerotic Heart Disease, Peripheral Vascular Disease, Hypercholesterolemia, Aneurysm, Congestive Heart Failure, Congenital Heart Disease, Valvular Heart Disease, Rheumatic Fever, Cardiomyopathy, Edema, Pericarditis, Cellulitis, Deep Vein Thrombosis, Hypertension, Hypotension or Varicose Veins RESPIRATORY: Negative Chronic Obstructive Pulmonary Disease (COPD) or Asthma GASTROINTESTINAL: Positive Gastrointestinal Disorders, Gastrointestinal Bleed, Ulcerative Colitis, Irritable Bowel and Obesity; Negative Hepatitis, Cirrhosis, Pancreatitis, Celiac Disease, Gall Bladder Disease, Esophageal Varices, Hernandez's Esophagus, Colitis, Diverticulitis, Diverticulosis, Ulcer, Colorectal Cancer, Crohn's Disease, Obstructive Bowel, Hiatal Hernia, Hemorrhoids or Gastroesophageal Reflux Disease GENITOURINARY: Negative Genitourinary Disorders, Renal Disease, Kidney Stones, Polycystic Kidney Disease, Neurogenic Bladder, Inguinal Hernia, Dialysis, Prostate Cancer or Benign Prostatic Hyperplasia REPRODUCTIVE: Negative Breast Cancer, Pelvic Inflammatory Disease or Testicular Cancer MUSCULOSKELETAL: Negative Bone Cancer ENT: Negative Cataracts, Glaucoma, Blind, Retinal Detachment, Macular Degeneration, Ear Infection, Deafness or Eye Prosthesis ENDOCRINE: Positive Endocrine Disorders and Hypothyroidism; Negative Diabetes Mellitus Type 1, Diabetes Mellitus Type 2, Hypoglycemia, Alla's Syndrome, [place]'s Disease, Hyperthyroidism, Parathyroid Disease, Pituitary Disease, Systemic Lupus Erythematosus, Syndrome of Inappropriate Antidiuretic Hormone (SIADH), Adrenal Disease or Graves' Disease HEMATOLOGIC: Positive Blood Disorders and Anemia; Negative Leukemia, Hemophilia, Thalassemia, Sickle Cell Disease or Clotting Problems PSYCHO/SOCIAL: Positive Anxiety OTHER HISTORY: Positive Hospitalization and Blood Transfusions; Negative Down Syndrome, Developmental Delay, Shingles, Falls, Blood Transfusion Reaction, Anesthesia Reactions, Organ Transplant, Chemotherapy, Radiation Th erapy, Hyperbaric Therapy, MRSA, VRSA, Vancomycin-Resistant Enterococci, Human Immunodeficiency Virus (HIV), Chicken Pox, Measles, Mumps, Rubella (Comoran Measles), Pertussis, Clostridium Difficile, Cancer, Breast Cancer, Cervical Cancer, Colorectal Cancer, Lung Cancer, Ovarian Cancer, Prostate Cancer or Testicular Cancer Family History FAMILY HISTORY: Negative Family Psychiatric Problems, Family Respiratory Disorders, Family Cardiac Disorders, Family Gastrointestinal Problems, Family Cancer, Family Surgery or Family Anesthesia Reaction Surgical History SURGICAL: Positive Section; Negative Cardiac Surgery, Pacemaker, Endocrine Surgery, Ear Surgery, Eye Surgery, Nose Surgery, Oral Surgery, Throat Surgery, Abdominal Surgery, Nephrect petey, Transurethral Resection, Joint Replacement, Neurologic Surgery, Brain Shunt, Mastectomy, Lumpectomy, Hysterectomy, Tubal Ligation, Vasectomy or Organ Transplant Social History SMOKING STATUS: Smoking status: Never smoker SECOND HAND EXPOSURE: second hand exposure: No ALCOHOL: Alcohol Intake: Never HOUSING: Housing: House LIVES WITH: Lives With: Spouse Patient Eduardo Bates Social History Living Situation History Housing: House Housing Other:: Pt from home Tobacco History Smoking Status: Never smoker Second Hand Smoke Exposure: No Alcohol History Alcohol Intake: Never Domestic Abuse History Do You Feel Safe at Home: Yes Review of Systems Report any current symptoms Only answer those that you have currently: Past Medical History Past Medical History Have you ever been diagnosed with any of the following: Neurological Problems Seizures: No Cardiology Problems Myocardial Infarction: No Cardiac Arrhythmia: No Atrial Fibrillation: No Angina: No Heart Murmur: No Coronary Artery Disease: No Atherosclerotic Heart Disease: No Peripheral Vascular Disease: No Hypercholesterolemia: No Aneurysm: No Congestive Heart Failure: No Congenital Heart Disease: No Valvular Heart Disease: No Rheumatic Fever: No Cardiomyopathy: No Edema: No Pericarditis: No Cellulitis: No Deep Vein Thrombosis: No Hypertension: No Hypotension: No Varicose Veins: No Respiratory Problems Chronic Obstructive Pulmonary Disease (COPD): No Asthma: No Stomache/Intestinal Problems Hepatitis: No Cirrhosis: No Pancreatitis: No Celiac Disease: No Gall Bladder Disease: No Gastrointestinal Bleed: Yes Esophageal Varices: No Hernandez's Esophagus: No Colitis: No Ulcerative Colitis: Yes Diverticulitis: No Diverticulosis: No Ulcer: No Colorectal Cancer: No Irritable Bowel: Yes Crohn's Disease: No Obstructive Bowel: No Hiatal Hernia: No Hemorrhoids: No Gastroesophageal Reflux Disease: No Obesity: Yes Genital/Urinary Problems Renal Disease: No Kidney Stones: No Polycystic Kidney Disease: No Neurogenic Bladder: No Inguinal Hernia: No Dialysis: No Reproductive Problems Breast Cancer: No Pelvic Inflammatory Disease: No Musculoskeletal Problems Bone Cancer: No Head,Eye,Nose,Throat Problems Cataracts: No Glaucoma: No Blind: No Retinal Detachment: No Macular Degeneration: No Chronic Ear Infections: No Deafness: No Eye Prosthesis: No Endocrine Problems Diabetes Mellitus Type 1: No Diabetes Mellitus Type 2: No Hypoglycemia: No [place]'s Syndrome: No [place]'s Disease: No Hyperthyroidism: No Hypothyroidism: Yes Parathyroid Disease: No Pituitary Disease: No Systemic Lupus Erythematosus: No Syndrome of Inappropriate Antidiuretic Hormone: No Adrenal Disease: No Graves' Disease: No Blood Problems Anemia: Yes Leukemia: No Hemophilia: No Thalassemia: No Sickle Cell Disease: No Clotting Problems: No Psychologic Problems Anxiety: Yes Other Problems Hospitalization: Yes Down Syndrome: No Developmental Delay: No Shingles: No Falls: No Blood Transfusions: Yes Blood Transfusion Reaction: No Anesthesia Reactions: No Organ Transplant: No Chemotherapy: No Radiation Therapy: No Hyperbaric Therapy: No MRSA: No VRSA: No Vancomycin-Resistant Enterococci: No Human Immunodeficiency Virus (HIV): No Chicken Pox: No Measles: No Mumps: No Rubella ([place] Measles): No Pertussis: No Clostridium Difficile: No Cancer: No Cervical Cancer: No Lung Cancer: No Ovarian Cancer: No Surgical History Hysterectomy: No Pacemaker: No History of Present Illness HPI Narrative 24-year-old female with past medical history of ulcerative colitis and chronic anemia seen in the [facility] today due to having increased bowel movements throughout the day as well as night since her second dose of her interview self-administered dose. Patient recently started her Entyvio dosages self administration via pen on October 04 after which she did not have any symptoms and she went and saw her GI specialist. She mentioned that her GI specialist was okay with the current plan, but ordered some blood work as well as a colonoscopy that will be scheduled for November. Patient mentioned that after his second shot which was on October 18 she did have left abdominal pain as well as decreased appetite and increased bowel movements. She mentioned that she has been having around 10 bowel movements throughout the daytime and 4 bowel movements throughout the night. Most of these bowel movements have been diarrhea-like as well as bloody and are accompanied by abdominal pain and cramping after she eats. She mentioned that she has also had some nausea and vomiting in the mornings. On physical examination with diesel crane operator Amira, rn medical surgical, present patient had moderate tenderness on the left side of the abdomen as well as in the epigastric region. Given the patient's symptoms there is some clinical suspicion for possible pancreatitis as Entyvio is known to cause acute pancreatitis as a side effect. Patient denied having any increased intake and alcohol and does not recall any changes in her diet. Patient also complained about some left foot pain, but denies any trauma to this. Patient was advised to get blood work done prior to next Entyvio administration which is to on November 01, 2024. Last menstrual period was on October 05, 2024 11/04/24: Patient scheduled an appointment for tele-visit. Patient reported that she received her blood test critical lab value from [facility] and immediately went to the draw in hand will transfuse her 2 units PRBC on 10/30 however she did not had repeat H&H. She reported that she continues to have more than 10 episodes of bowel movement with dark stool. Her abdominal pain is a little better than last week however continues to persist after eating. She reports to have improvement in her left foot pain. She feels better after receiving blood transfusion. CBC was significant for hemoglobin 6.4 dropped from 9.0 reported on 10/29. HCT 24.9. Monocytes were 1.0. Platelet count 543. Lipase was 22. Patient was advised to follow-up with H&H by tomorrow to evaluate if she needs another transfusion if necessary. She was given a longer steroid taper for the last 4 weeks to help up with UC mild flare. She already completed the course of Dosepak. She was also given a prescription refill for Protonix 40 mg once a day. Dose instructions for steroid taper was printed and she was advised to strip picker tomorrow from the clinic. She was also advised to continue taking her Entyvio infusion given lipase was unremarkable and abdominal pain has subsided. Follow-up on H&H and advised to schedule an appointment in a week time to evalu ate for symptoms. 01/21/2025 Reports resolution of bloody stool, following with Dr. Osman () who recently started monthly Risankizumab (SKYRIZI) infusions, ENTYVIO has been discontinued. Overall, her symptoms have improved after second infusion of SKYRIZI. Denies fever, chills, bloody stool, diarrhea, nausea, vomiting, constipation, skin rashes or ulcers. She has mild abdominal pain on and off but relatively improved and controlled. Last H&H with Hgb 7.5 from 01/04/2025 after transfusions. Complaints of fatigue but generally but overall improving. Continued on steroids taper. GI discontinued IRON supplements. She has an appt in about 2 weeks. Periods are regular, no heavy bleeds, LMP 12/06/2024. Labs from 01/04/2025: Calprotectin 1860, FERRITIN 8, CRP 12, B12 249, VITAMIN D 12.5, ALBUMIN 3.3, Hgb 7.5, MCV 78, PLT 494, normal renal panel and electrolytes. Orders: Repeat CBC today given fatigue and scleral icterus on exam, return to office 6 weeks. Medications: Ordered PREDNISONE taper, starting with 20 mg weekly, decrease by 5 mg every week. Risankizumab managed by . Next visit: follow-up CBC. 03/05/2025: Patient was seen and examined in the clinic. She stated that she has been feeling weak and dizzy however denies noticing any blood in the stool anymore. She also endorses some nausea especially after eating food. She is having 8 hours of sleep but still feels tired. Patient reports that she has been taking Skyrizi every 8 weeks. Last dose was given on February 10, 2025 and next 1 is due on April 07, 2025. Patient received 1 unit of PRBC on 01/29/2025 based on CBC from 01/31/2025 with hemoglobin 6.8. Patient is off steroids now. She reported that her menstrual cycle has been late for 40 days. Her last menstrual cycle was 3 days and was on February 23, 2025. Patient reported that she is not following with her GI specialist Dr. Viky Chatman as she is no more working in [facility]. Patient was given a follow-up with another GI specialist Dr. Brad Krueger in [facility]. Documents were faxed after speaking to their office. Patient will schedule the appointment once referral is complete. Stat CBC and TSH was ordered to evaluate patient's hemoglobin. Will follow-up with lab results and likely see next 2 weeks. Review of Systems Review of Systems Systems Reviewed: All systems reviewed, normal except as documented Objective/Exam Narrative Physical exam: GENERAL APPEARANCE: AxOx4, generally well-appearing female no acute distress. HEENT: NC, AT. MMM. EOMI, pale conjunctiva, oropharynx clear. NECK: Supple without lymphadenopathy. No stiffness or restricted ROM. HEART: Regular rate and regular rhythm, normal S1/S2, no m/r/g LUNGS: CTAB, moving air well. No crackles or wheezes are heard. ABDOMEN: Soft, nontender, nondistended with good bowel sounds heard. BACK: No CVAT, no obvious deformity. EXTREMITIES: Without cyanosis, clubbing or edema. NEUROLOGICAL: Grossly nonfocal. Alert and oriented, moving all 4 extremities. CN not formally tested but appear grossly intact. Observed to ambulate with normal gait. Skin: Warm and dry without any rash. Pale yellow skin Psych: Appropriate mood and affect Assessment & Plan Diagnosis / Problem List (1) Ulcerative colitis without complications: Status: Acute Assessment & Plan: -She stated that she has been feeling weak and dizzy however denies noticing any blood in the stool anymore. She also endorses some nausea especially after eating food. She is having 8 hours of sleep but still feels tired. Patient reports that she has been taking Skyrizi every 8 weeks. Last dose was given on February 10, 2025 and next 1 is due on April 07, 2025. Patient received 1 unit of PRBC on 01/29/2025 based on CBC from 01/31/2025 with hemoglobin 6.8. Patient is off steroids now. -She reported that her menstrual cycle has been late for 40 days. Her last menstrual cycle was 3 days and was on February 23, 2025. Patient reported that she is not following with her GI specialist Dr. Viky Chatman as she is no more working in [facility]. Plan: -Patient was given a follow-up with another GI specialist Dr. Brad Krueger in [facility]. Documents were faxed after speaking to their office. -Patient will schedule the appointment once referral is complete. -Stat CBC and TSH was ordered to evaluate patient's hemoglobin and any thyroid abnormalities -Will follow-up with lab results and likely see next 2 weeks. Patient was seen and discussed with attending physician, Dr.Watanakunakorn Dr. Alley MD, PGY 3 Orders: Referrals Gastroenterology K51.00 - Ulcerative (chronic) pancolitis without complications, K51.90 - Ulcerative colitis, unspecified, without complications, K52.9 - Noninfective gastroenteritis and colitis, unspecified Office Procedures [facility] Level of Care Nursing/Assessment Patient Status: Established Patient Nursing Assessment/Reassessment: Medication Reconciliation, Update PMH in EMR and Vital Signs Coordination of Care: Complex Care and Chronic Disease 1-5, Consent,records obtained, informed consent, Lab and Imaging orders and Results/Orders obtained Established Patient Charge Established Patient Point Assignment: 80 Established Patient Point Charge: Level 3 (80-115)
== END 2025-03-05 16:00 | disposition home or self-care (01) ==
LOC: HODAHC 15:01
PROVIDERS: Supervising Provider Internal Medicine; Visit Provider Student in an Organized Health Care Education/Training Program
DX: K51.90 Ulcerative colitis, unspecified, without complications (principal)
CPT/HCPCS: 99213; G0463

== ENCOUNTER 2025-03-19 10:31 | Outpatient (AMB) | payer MEDICAID, SELFPAY ==
[2025-03-19 10:50] VITALS: BP 94/65; PULSE 107; RESP 17; TEMP 36.8; O2SAT 99; BMI 31.0
--- NOTE | 2025-03-19 10:50 | PD.RESCLINIC ---
Vital Signs 03/19/25 10:50 Height 1.75 m Height Method Stated Weight 95.368 kg Weight Measurement Method Standing Scale BMI 31.0 BP 94/65 Blood Pressure Source Automatic Cuff Blood Pressure Location Right Upper Arm Position Sitting Respiration 17 Pulse 107 H Pulse Source Monitor Temp 98.3 F Temp Source Temporal Artery Scan Pulse Oximetry (%) 99 Oxygen Delivery Method Room Air Allergies/Meds Allergies & Medications Allergies infliximab-dyyb Allergy (Severe, Verified 03/19/25 11:20) Difficulty Breathing Medication Reconciliation ondansetron 4 mg disintegrating tablet 4 mg PO Q8H PRN nausea and vomiting #20 tabs 11/04/24 [Rx Confirmed 03/19/25] pantoprazole 40 mg granules delayed-release for susp in packet (Protonix) 40 mg PO QDAY #30 ea 11/04/24 [Rx Confirmed 03/19/25] ferumoxytol 510 mg/17 mL (30 mg/mL) intravenous solution (Feraheme) 510 mg (17 mL) IV Q7D 2 doses 03/19/25 [Rx] MA Intake Visit Data Collection New Patient or Established: Established Patient (seen at [facility] within 3 years) Reason for Visit:: FOLLOW UP Pain Present Currently: No Pain scale:: 0 Pain Scale Used: Acevedo-Jett/Numerical Heavy Equipment Technician Required: No PCP or OBGYN visit in last 3 months: Yes Date of Last PCP or OBGYN visit: 03/05/25 Hx Now: No Do You Feel Safe at Home: Yes Authorities Contacted: N/A Smoking Status Smoking Status: Never smoker Immunization / Flu Flu Vaccine in the Last 12 Months: Yes Flu Vaccine Exclusion Criteria: Already Received Past Medical History Past Medical History NEUROLOGIC: Negative Neurological Disorders or Seizures CARDIAC: Negative Cardiac Disorders, Myocardial Infarction, Cardiac Arrhythmia, Atrial Fibrillation, Angina, Heart Murmur, Coronary Artery Disease, Atherosclerotic Heart Disease, Peripheral Vascular Disease, Hypercholesterolemia, Aneurysm, Congestive Heart Failure, Congenital Heart Disease, Valvular Heart Disease, Rheumatic Fever, Cardiomyopathy, Edema, Pericarditis, Cellulitis, Deep Vein Thrombosis, Hypertension, Hypotension or Varicose Veins RESPIRATORY: Negative Chronic Obstructive Pulmonary Disease (COPD) or Asthma GASTROINTESTINAL: Positive Gastrointestinal Disorders, Gastrointestinal Bleed, Ulcerative Colitis, Irritable Bowel and Obesity; Negative Hepatitis, Cirrhosis, Pancreatitis, Celiac Disease, Gall Bladder Disease, Esophageal Varices, Hernandez's Esophagus, Colitis, Diverticulitis, Diverticulosis, Ulcer, Colorectal Cancer, Crohn's Disease, Obstructive Bowel, Hiatal Hernia, Hemorrhoids or Gastroesophageal Reflux Disease GENITOURINARY: Negative Genitourinary Disorders, Renal Disease, Kidney Stones, Polycystic Kidney Disease, Neurogenic Bladder, Inguinal Hernia, Dialysis, Prostate Cancer or Benign Prostatic Hyperplasia REPRODUCTIVE: Negative Breast Cancer, Pelvic Inflammatory Disease or Testicular Cancer MUSCULOSKELETAL: Negative Bone Cancer ENT: Negative Cataracts, Glaucoma, Blind, Retinal Detachment, Macular Degeneration, Ear Infection, Deafness or Eye Prosthesis ENDOCRINE: Positive Endocrine Disorders and Hypothyroidism; Negative Diabetes Mellitus Type 1, Diabetes Mellitus Type 2, Hypoglycemia, Alla's Syndrome, Oakwood's Disease, Hyperthyroidism, Parathyroid Disease, Pituitary Disease, Systemic Lupus Erythematosus, Syndrome of Inappropriate Antidiuretic Hormone (SIADH), Adrenal Disease or Graves' Disease HEMATOLOGIC: Positive Blood Disorders and Anemia; Negative Leukemia, Hemophilia, Thalassemia, Sickle Cell Disease or Clotting Problems PSYCHO/SOCIAL: Positive Anxiety OTHER HISTORY: Positive Hospitalization and Blood Transfusions; Negative Down Syndrome, Developmental Delay, Shingles, Falls, Blood Transfusion Reaction, Anesthesia Reactions, Organ Transplant, Chemotherapy, Radiation Therapy, Hyperbaric Therapy, MRSA, VRSA, Vancomycin-Resistant Enterococci, Human Immunodeficiency Virus (HIV), Chicken Pox, Measles, Mumps, Rubella (Barbadian Measles), Pertussis, Clostridium Difficile, Cancer, Breast Cancer, Cervical Cancer, Colorectal Cancer, Lung Cancer, Ovarian Cancer, Prostate Cancer or Testicular Cancer Family History FAMILY HISTORY: Negative Family Psychiatric Problems, Family Respiratory Disorders, Family Cardiac Disorders, Family Gastrointestinal Problems, Family Cancer, Family Surgery or Family Anesthesia Reaction Surgical History SURGICAL: Positive Section; Negative Cardiac Surgery, Pacemaker, Endocrine Surgery, Ear Surgery, Eye Surgery, Nose Surgery, Oral Surgery, Throat Surgery, Abdominal Surgery, Nephrectomy, Transurethral Resection, Joint Replacement, Neurologic Surgery, Brain Shunt, Mastectomy, Lumpectomy, Hysterectomy, Tubal Ligation, Vasectomy or Organ Transplant Social History SMOKING STATUS: Smoking status: Never smoker SECOND HAND EXPOSURE: second hand exposure: No ALCOHOL: Alcohol Intake: Never HOUSING: Housing: House LIVES WITH: Lives With: Spouse Patient Portal Questionaires PHQ-9 PHQ-2 Over the last 2 weeks, how often have you been bothered by any of the following problems? 1. Little interest or pleasure in doing things: not at all 2. Feeling down, depressed, or hopeless: not at all Total score: 0 PHQ-9 3. Trouble falling or staying asleep, or sleeping too much: Not at all 4. Feeling tired or having little energy: Not at all 5. Poor appetite or overeating: Not at all 6. Feeling bad about yourself - or that you are a failure or have let yourself or your family down: Not at all 7. Trouble concentrating on things, such as reading the newspaper or watching television: Not at all 8. Moving or speaking so slowly that other people could have noticed? - Or the opposite - being so fidgety or restless that you have been moving around a lot more than usual: not at all 9. Thoughts that you would be better off or of hurting yourself in some way: Not at all Total score: 0 If you checked off any problems, how difficult have these problems made it for you to do your work, take care of things at home, or get along with other people?: not difficult at all Source: Developed by Drs. Seth Jeffers, Mary Ann Gomes, Pierce Blandon and colleagues, with an educational danisha from [employer]. Depression screen completed yes Social History Living Situation History Marital Status: Lives With: Family Housing: House Housing Other:: Pt from home Tobacco History Smoking Status: Never smoker Second Hand Smoke Exposure: No Alcohol History Alcohol Intake: Never Domestic Abuse History Do You Feel Safe at Home: Yes Review of Systems Report any current symptoms Only answer those that you have currently: Past Medical History Past Medical History Have you ever been diagnosed with any of the following: Neurological Problems Seizures: No Cardiology Problems Myocardial Infarction: No Cardiac Arrhythmia: No Atrial Fibrillation: No Angina: No Heart Murmur: No Coronary Artery Disease: No Atherosclerotic Heart Disease: No Peripheral Vascular Disease: No Hypercholesterolemia: No Aneurysm: No Congestive Heart Failure: No Congenital Heart Disease: No Valvular Heart Disease: No Rheumatic Fever: No Cardiomyopathy: No Edema: No Pericarditis: No Cellulitis: No Deep Vein Thrombosis: No Hypertension: No Hypotension: No Varicose Veins: No Respiratory Problems Chronic Obstructive Pulmonary Disease (COPD): No Asthma: No Stomache/Intestinal Problems Hepatitis: No Cirrhosis: No Pancreatitis: No Celiac Disease: No Gall Bladder Disease: No Gastrointestinal Bleed: Yes Esophageal Varices: No Hernandez's Esophagus: No Colitis: No Ulcerative Colitis: Yes Diverticulitis: No Diverticulosis: No Ulcer: No Colorectal Cancer: No Irritable Bowel: Yes Crohn's Disease: No Obstructive Bowel: No Hiatal Hernia: No Hemorrhoids: No Gastroesophageal Reflux Disease: No Obesity: Yes Genital/Urinary Problems Renal Disease: No Kidney Stones: No Polycystic Kidney Disease: No Neurogenic Bladder: No Inguinal Hernia: No Dialysis: No Reproductive Problems Breast Cancer: No Pelvic Inflammatory Disease: No Musculoskeletal Problems Bone Cancer: No Head,Eye,Nose,Throat Problems Cataracts: No Glaucoma: No Blind: No Retinal Detachment: No Macular Degeneration: No Chronic Ear Infections: No Deafness: No Eye Prosthesis: No Endocrine Problems Diabetes Mellitus Type 1: No Diabetes Mellitus Type 2: No Hypoglycemia: No Alla's Syndrome: No Oakwood's Disease: No Hyperthyroidism: No Hypothyroidism: Yes Parathyroid Disease: No Pituitary Disease: No Systemic Lupus Erythematosus: No Syndrome of Inappropriate Antidiuretic Hormone: No Adrenal Disease: No Graves' Disease: No Blood Problems Anemia: Yes Leukemia: No Hemophilia: No Thalassemia: No Sickle Cell Disease: No Clotting Problems: No Psychologic Problems Anxiety: Yes Other Problems Hospitalization: Yes Down Syndrome: No Developmental Delay: No Shingles: No Falls: No Blood Transfusions: Yes Blood Transfusion Reaction: No Anesthesia Reactions: No Organ Transplant: No Chemotherapy: No Radiation Therapy: No Hyperbaric Therapy: No MRSA: No VRSA: No Vancomycin-Resistant Enterococci: No Human Immunodeficiency Virus (HIV): No Chicken Pox: No Measles: No Mumps: No Rubella (Barbadian Measles): No Pertussis: No Clostridium Difficile: No Cancer: No Cervical Cancer: No Lung Cancer: No Ovarian Cancer: No Surgical History Hysterectomy: No Pacemaker: No History of Present Illness HPI Narrative 24-year-old female with past medical history of ulcerative colitis and chronic anemia seen in the [facility] today due to having increased bowel movements throughout the day as well as night since her second dose of her interview self-administered dose. Patient recently started her Entyvio dosages self administration via pen on October 04 after which she did not have any symptoms and she went and saw her GI specialist. She mentioned that her GI specialist was okay with the current plan, but ordered some blood work as well as a colonoscopy that will be scheduled for November. Patient mentioned that after his second shot which was on October 18 she did have left abdominal pain as well as decreased appetite and increased bowel movements. She mentioned that she has been having around 10 bowel movements throughout the daytime and 4 bowel movements throughout the night. Most of these bowel movements have been diarrhea-like as well as bloody and are accompanied by abdominal pain and cramping after she eats. She mentioned that she has also had some nausea and vomiting in the mornings. On physical examination with edmundo Collier, medical office receptionist assistant, present patient had moderate tenderness on the left side of the abdomen as well as in the epigastric region. Given the patient's symptoms there is some clinical suspicion for possible pancreatitis as Entyvio is known to cause acute pancreatitis as a side effect. Patient denied having any increased intake and alcohol and does not recall any changes in her diet. Patient also complained about some left foot pain, but denies any trauma to this. Patient was advised to get blood work done prior to next Entyvio administration which is to on November 01, 2024. Last menstrual period was on October 05, 2024 11/04/24: Patient scheduled an appointment for tele-visit. Patient reported that she received her blood test critical lab value from [facility] and immediately went to the group leader wafer polishing will transfuse her 2 units PRBC on 10/30 however she did not had repeat H&H. She reported that she continues to have more than 10 episodes of bowel movement with dark stool. Her abdominal pain is a little better than last week however continues to persist after eating. She reports to have improvement in her left foot pain. She feels better after receiving blood transfusion. CBC was significant for hemoglobin 6.4 dropped from 9.0 reported on 10/29. HCT 24.9. Monocytes were 1.0. Platelet count 543. Lipase was 22. Patient was advised to follow-up with H&H by tomorrow to evaluate if she needs another transfusion if necessary. She was given a longer steroid taper for the last 4 weeks to help up with UC mild flare. She already completed the course of Dosepak. She was also given a prescription refill for Protonix 40 mg once a day. Dose instructions for steroid taper was printed and she was advised to waste picker tomorrow from the clinic. She was also advised to continue taking her Entyvio infusion given lipase was unremarkable and abdominal pain has subsided. Follow-up on H&H and advised to schedule an appointment in a week time to evaluate for symptoms. 01/21/2025 Reports resolution of bloody stool, following with Dr. Osman (GI) who recently started monthly Risankizumab (SKYRIZI) infusions, ENTYVIO has been discontinued. Overall, her symptoms have improved after second infusion of SKYRIZI. Denies fever, chills, bloody stool, diarrhea, nausea, vomiting, constipation, skin rashes or ulcers. She has mild abdominal pain on and off but relatively improved and controlled. Last H&H with Hgb 7.5 from 01/04/2025 after transfusions. Complaints of fatigue but generally but overall improving. Continued on steroids taper. GI discontinued IRON supplements. She has an appt in about 2 weeks. Periods are regular, no heavy bleeds, LMP 12/06/2024. Labs from 01/04/2025: Calprotectin 1860, FERRITIN 8, CRP 12, B12 249, VITAMIN D 12.5, ALBUMIN 3.3, Hgb 7.5, MCV 78, PLT 494, normal renal panel and electrolytes. Orders: Repeat CBC today given fatigue and scleral icterus on exam, return to office 6 weeks. Medications: Ordered PREDNISONE taper, starting with 20 mg weekly, decrease by 5 mg every week. Risankizumab managed by GI. Next visit: follow-up CBC. 03/05/2025: Patient was seen and examined in the clinic. She stated that she has been feeling weak and dizzy however denies noticing any blood in the stool anymore. She also endorses some nausea especially after eating food. She is having 8 hours of sleep but still feels tired. Patient reports that she has been taking Skyrizi every 8 weeks. Last dose was given on February 10, 2025 and next 1 is due on April 07, 2025. Patient received 1 unit of PRBC on 01/29/2025 based on CBC from 01/31/2025 with hemoglobin 6.8. Patient is off steroids now. She reported that her menstrual cycle has been late for 40 days. Her last menstrual cycle was 3 days and was on February 23, 2025. Patient reported that she is not following with her GI specialist Dr. Viky Chatman as she is no more working in [employer]. Patient was given a follow-up with another GI specialist Dr. Brad Krueger in [facility]. Documents were faxed after speaking to their office. Patient will schedule the appointment once referral is complete. Stat CBC and TSH was ordered to evaluate patient's hemoglobin. Will follow-up with lab results and likely see next 2 weeks. 03/19/25: Patient came for follow-up in the clinic. CBC showed Hgb 7.4, hematocrit 29.4, MCV 74, MCH 18.7, RDW 19. Platelets 615. WBC 6.3, TSH 3.370. Patient reported continued fatigue and weakness. She denied any symptoms of blood or black-colored stool. Mild shortness of breath. Patient also had a disability form from her high school which was filled and signatures for limitations. Patient cannot tolerate oral iron therapy as well. She was advised to get a PRBC transfusion and IV iron therapy which will be set up with [facility] as outpatient. [facility] forms were filled and currently awaiting on authorization. Additionally, patient is also waiting on authorization from insurance for GI specialist follow-up. Patient will be followed up once she receive blood transfusion with post H&H follow-up and IV iron therapy. Follow-up in a month. Review of Systems Review of Systems Systems Reviewed: All systems reviewed, normal except as documented Objective/Exam Narrative Physical exam: GENERAL APPEARANCE: AxOx4, generally well-appearing female no acute distress. HEENT: NC, AT. MMM. EOMI, pale conjunctiva, oropharynx clear. NECK: Supple without lymphadenopathy. No stiffness or restricted ROM. HEART: Regular rate and regular rhythm, normal S1/S2, no m/r/g LUNGS: CTAB, moving air well. No crackles or wheezes are heard. ABDOMEN: Soft, nontender, nondistended with good bowel sounds heard. BACK: No CVAT, no obvious deformity. EXTREMITIES: Without cyanosis, clubbing or edema. NEUROLOGICAL: Grossly nonfocal. Alert and oriented, moving all 4 extremities. CN not formally tested but appear grossly intact. Observed to ambulate with normal gait. Skin: Warm and dry without any rash. Pale yellow skin Psych: Appropriate mood and affect Assessment & Plan Diagnosis / Problem List (1) Ulcerative pancolitis: Status: Acute Assessment & Plan: -03/05/25: She stated that she has been feeling weak and dizzy however denies noticing any blood in the stool anymore. She also endorses some nausea especially after eating food. She is having 8 hours of sleep but still feels tired. Patient reports that she has been taking Skyrizi every 8 weeks. Last dose was given on February 10, 2025 and next 1 is due on April 07, 2025. Patient received 1 unit of PRBC on 01/29/2025 based on CBC from 01/31/2025 with hemoglobin 6.8. Patient is off steroids now. -She reported that her menstrual cycle has been late for 40 days. Her last menstrual cycle was 3 days and was on February 23, 2025. Patient reported that she is not following with her GI specialist Dr. Viky Chatman as she is no more working in [employer] [facility]. 03/19/25: Patient reported continued weakness and fatigue. She denied any blood or black-colored stool. CBC showed Hgb 7.4, hematocrit 29.4, MCV 74, MCH 18.7, RDW 19. Platelets 615. WBC 6.3, TSH 3.370 Plan: -Recommended to receive 1 unit PRBC and IV iron therapy afterwards after set up with [facility] as an outpatient -Next infusion of skyrizi on Apr -Follow-up with GI specialist Dr. Brad Krueger in [facility] after insurance authorization - Patient will be followed up in a month after receiving blood unit and IV iron therapy (2) Iron deficiency anemia: Status: Acute Assessment & Plan: - Patient continues to have fatigability and weakness with memory problems. - CBC showed Hgb 7.4, hematocrit 29.4, MCV 74, MCH 18.7, RDW 19. Platelets 615. WBC 6.3, TSH 3.370 - Based on previous iron levels iron was at 7 and patient cannot tolerate oral iron and was not recommended by her group leader wafer polishing therefore will receive IV iron Plan: - Patient cannot tolerate oral iron therapy - IV iron therapy Feraheme ordered once every week for 2 weeks with [facility] - Follow-up in a month Patient was seen and discussed with attending physician, Dr.Watanakunakorn Dr. Alley MD, PGY 3 Office Procedures [facility] Level of Care Nursing/Assessment Patient Status: Established Patient Nursing Assessment/Reassessment: Medication Reconciliation, Update PMH in EMR and Vital Signs Coordination of Care: Complex Care and Chronic Disease 1-5, Consent,records obtained, informed consent, Education Simp Pt/Fam, Results/Orders obtained and Staff clarify orders Established Patient Charge Established Patient Point Assignment: 90 Established Patient Point Charge: EP Level 3 (80-115) TB Screening LTBI Screening: Has patient traveled, was born, or resided for at least 1 month, or frequent border crossing into a country with an elevated TB rate: No Immunosuppression, current or planned (HIV, organ transplant, treated with biologic agents, steroids, or other immunosuppression medication): No Close contact to someone with infectious TB disease during lifetime: No Homelessness or incarceration, current or past: No TB testing indicated at this time (at least 1 yes above): No
== END 2025-03-19 11:46 | disposition home or self-care (01) ==
LOC: HODAHC 10:31
PROVIDERS: PCP Student in an Organized Health Care Education/Training Program; Referring Provider Student in an Organized Health Care Education/Training Program; Supervising Provider Student in an Organized Health Care Education/Training Program; Visit Provider Student in an Organized Health Care Education/Training Program
DX: D50.9 Iron deficiency anemia, unspecified (principal); K51.00 Ulcerative (chronic) pancolitis without complications
CPT/HCPCS: 99213; G0463

== ENCOUNTER 2025-04-10 17:15 | Emergency (ER) | payer MEDICAID, SELFPAY ==
[2025-04-10] VITALS (10 sets, daily range): BP systolic 102–117; BP diastolic 57–77; PULSE 81–113; RESP 18–24; TEMP 36.7–37.5; O2SAT 98–100; BMI 31.0
--- NOTE | 2025-04-10 17:44 | XR_ITS ---
Examination: CT abdomen and pelvis without contrast. Coronal 3-D reconstructions. Sagittal 2-D reconstructions. Date and time of exam:April 10, 2025, 1919 hrs., Comparison April 08, 2024. Indications: Left-sided abdominal pain beginning 5 months ago, worse the last 2 days CTDI: vol (mGy): 10.3 DLP: (mGycm): 629. Technique: Axial images of the abdomen have been obtained, 3 mm slice thickness Intravenous contrast material has not been administered. Low dose protocols were performed. One or more of the following dose reduction techniques were used; automated exposure control, adjustment of the mA and/or KV according to patient size, use of iterative reconstruction technique. Findings: No focal liver or splenic lesions. Contracted gallbladder. No pancreatic edema. Normal adrenal glands. Moderate right mild left renal parenchymal scar formation with mild perinephric stranding No hydronephrosis or ureteral calculi. Aorta normal size Multiple small lymph nodes in the right lower mesentery No periappendiceal inflammatory change. No bowel obstruction or diverticulitis There is mild diffuse wall thickening involving the colon No pelvic mass Urinary bladder is intact Impression: Moderate right mild left renal parenchymal scar formation, no hydronephrosis or ureteral calculi. No periappendiceal inflammatory change. Multiple small lymph nodes in the right mesentery adjacent to the cecum which can be seen with mesenteric adenitis Mild diffuse nonspecific colitis pattern
--- NOTE | 2025-04-10 17:44 | PD.EDRME ---
Rapid Medical Screening Exam RME Arrival date/time: 04/10/25 17:15 24-year-old female with a history of ulcerative colitis presents to the emergency room with a chief complaint of left lower quadrant abdominal pain and left shoulder pain x 2 days I have greeted and performed a focused initial assessment of this patient. A comprehensive ED assessment and evaluation of the patient, analysis of all test results, and completion of the medical decision making process will be conducted by additional ED providers. Chief Complaint: Dizziness Vital signs: Vital Signs Temperature 99.0 F 04/10/25 17:28 Pulse Rate 113 H 04/10/25 17:28 Respiratory Rate 18 04/10/25 17:28 Blood Pressure 112/77 04/10/25 17:28 Pulse Oximetry (%) 98 04/10/25 17:28 Oxygen Delivery Method Room Air 04/10/25 17:28 Vital signs reviewed by provider: Yes
[2025-04-10 18:04] LABS: Collection Type, Urine Clean Catch
[2025-04-10 18:11] LABS: Bilirubin,Urine Negative (Negative); Blood,Urine Negative (Negative); Clarity,Urine Clear (Clear/Hazy); Color,Urine Lt-Yellow (Lt Yel-Yel); Glucose, Urine Negative (Negative); Ketones,Urine Negative (Negative); Leukocyte Esterase,Urine Negative (Negative); Nitrite,Urine Negative (Negative); PH,Urine 7.0 (5.0-7.0); Protein,Urine Trace (Neg - Trace); RBC,Urine 2 /hpf (0-3); Specific Gravity,Urine 1.012 (1.001-1.035); Squamous Epithelial Cell,Urine 1 /hpf (0-5); Urobilinogen,Urine Negative mg/dL (0.0-1.0); WBC,Urine 1 /hpf (0-5)
[2025-04-10 18:12] LABS: HCG Qualitative,Urine Negative
[2025-04-10 18:49] LABS: Basophils # (Auto) 0.0 Thou/mm3 (0.0-0.2); Basophils % (Auto) 0 % (0-2.5); Eosinophils # (Auto) 0.1 Thou/mm3 (0.0-0.5); Eosinophils % (Auto) 2 % (0-10); Hematocrit 24.1 % (36.0-46.0); Immature Granulocytes Auto 0.01 Thou/mm3 (0.00-0.00); Lymphocytes # (Auto) 1.5 Thou/mm3 (1.0-4.8); Lymphocytes % (Auto) 33 % (10-50); Mean Corpuscular HGB Conc 27.4 g/dl (31.0-37.0); Mean Corpuscular Hemoglobin 18.0 pg (25.0-35.0); Mean Corpuscular Volume 66 fL (80-100); Monocytes # (Auto) 0.6 Thou/mm3 (0.0-0.8); Monocytes % (Auto) 14 % (0-12); Neutrophils # (Auto) 2.4 Thou/mm3 (1.8-7.7); Neutrophils % (Auto) 52 % (37-80); Nucleated Red Blood Cell # 0.00 Thou/mm3 (0.00-0.00); Nucleated Red Blood Cell % 0 /100 WBC (0); Platelet Count 526 Thou/mm3 (140-440); RDW Standard Deviation 46.0 fL (36.4-46.3); Red Blood Count 3.66 Miln/mm3 (4.00-5.20); White Blood Count 4.7 Thou/mm3 (3.6-11.0)
[2025-04-10 18:54] LABS: Hemoglobin 6.6 g/dL (12.0-16.0)
[2025-04-10 19:04] LABS: INR 1.0 (0.9-1.3); Partial Thromboplastin Time 23.9 Seconds (22.0-36.0); Prothrombin Time 11.2 Seconds (9.0-12.2)
[2025-04-10] MEDS: KETOROLAC INJ 60 MG/2 ML VIAL 30 MG IM (19:10)
[2025-04-10 19:21] LABS: Alanine Aminotransferase < 7 U/L (10-49); Albumin, Serum 3.0 gm/dL (3.5-5.0); Albumin/Globulin Ratio 0.9 (1.2-2.2); Alkaline Phosphatase 101 U/L (46-116); Anion Gap 11 (7-16); Aspartate Amino Transferase 13 U/L (0-34); BUN/Creatinine Ratio 6 Ratio (12-20); Bilirubin,Total 0.7 mg/dL (0.3-1.2); Blood Urea Nitrogen < 5 mg/dL (9-23); Calcium 8.7 mg/dL (8.3-10.6); Calcium (Corrected) 9.5 mg/dL (8.5-10.1); Carbon Dioxide 24.9 mMol/L (20.0-31.0); Chloride 104 mMol/L (98-107); Creatinine (Component) 0.9 mg/dL (0.6-1.3); Estimated Creatinine Clearance 118.4 mL/min (>60); Globulin 3.2 gm/dL (2.3-3.5); Glucose 94 mg/dL (74-106); Lipase 34 U/L (12-53); Osmolality,Calculated 276 (275-295); Potassium 3.9 mMol/L (3.4-5.1); Sodium 140 mMol/L (136-145); Total Protein 6.2 gm/dL (5.7-8.2); eGFR > 60 See Note
--- NOTE | 2025-04-10 20:14 | PC.NURSE ---
pt arrived to ed for approx 4months of weakness and sob. pt states that she has ulcerative colitis and has gotten multiple blood transfusions in the past because of the disorder. pt denies any reaction with blood transfusion in the past
--- NOTE | 2025-04-10 21:02 | PD.EDDIZZY ---
ED Dizzyness E/[facility] General Chief Complaint: Dizziness Stated Complaint: SYMPTOMS OF LOW HGB AND SHARP PAIN TO L SIDE Time Seen by Provider: 04/10/25 17:45 Arrival date/time: 04/10/25 17:15 RME / HPI E / [facility] Narrative: 24-year-old female patient with significant history of ulcerative colitis, came in with family for evaluation regarding dizziness. Patient been having symptoms for at least 1 week, getting worse for the last 2 days, severity of symptoms moderate. Patient denies any vomiting blood. Denies any abdominal pain. Denies any other complaints. Currently on infusion for ulcerative colitis. She has a history of anemia in the past and received 2 units of packed RBC. Denies any other complaints. Related Data Previous Rx's ?Medication ?Instructions ?Recorded ondansetron 4 mg disintegrating 4 mg PO Q8H PRN nausea and 11/04/24 tablet vomiting #20 tabs pantoprazole 40 mg granules 40 mg PO QDAY #30 ea 11/04/24 delayed-release for susp in packet (Protonix) Allergies Allergy/AdvReac Type Severity Reaction Status Date / Time infliximab-dyyb Allergy Severe Difficulty Verified 04/10/25 17:20 Breathing Review of Systems Review of Systems Narrative Review of Systems: Review of system reviewed and within normal limits except mentioned in HPI ED Exam Narrative Physical exam: VITAL SIGNS: Reviewed. GENERAL APPEARANCE: Alert and interactive, follows commands, no acute distress, HEAD AND FACE: Non-traumatic. ENT: PERRL, pale conjunctiva, eyelid no trauma, Mucous membrane moist. NECK: Supple, nontender, no nuchal rigidity. CHEST: No tenderness, no crepitus, no paradoxical movement, no retractions. LUNGS: Clear, well ventilated, symmetric, no rales, no wheezing, no ronchi, no stridor, good breath sounds bilaterally. HEART: Regular rate, regular rhythm, no murmur, no gallops. ABDOMEN: Soft, positive bowel sounds, nondistended, no guarding, nontender, no rebound, no masses, RECTAL: Deferred. GENITAL: Deferred. NEUROLOGICAL: Gross motor function intact sensory function intact, Appropriate for age. MUSCULOSKELETAL: low back nontender, full range of motion. EXTREMITIES: Nontender, full range of motion. SKIN: Color pale, dry, no rash, no lacerations, no abrasions, no contusions. LYMPHATICS: Deferred. Course Quality Measures none Orders Category Date Time Status Transfuse,blood/blood products ONCE Care 04/10/25 19:[address] abdomen pelvis wo con Stat Exams 04/10/25 17:44 Completed Antibody Identification Stat Lab 04/10/25 18:36 Completed CBC Stat Lab 04/10/25 18:36 Completed CMP [Comprehensive Metabolic Panel] Stat Lab 04/10/25 18:36 Completed HCG Qualitative,Urine Stat Lab 04/10/25 17:53 Completed Lipase Stat Lab 04/10/25 18:36 Completed PT [Prothrombin Time with INR] Stat Lab 04/10/25 18:36 Completed PTT [Partial Thromboplastin Time] Stat Lab 04/10/25 18:36 Completed Path Review Blood Smear Stat Lab 04/10/25 18:36 Completed Type and Screen Stat Lab 04/10/25 18:36 Completed UA [Urinalysis] Stat Lab 04/10/25 17:53 Completed Urine Culture Stat Lab 04/10/25 17:53 Received prbc [Red Blood Cells] Stat Lab 04/10/25 18:36 Completed Ketorolac Inj [Toradol Inj] Med 04/10/25 17:44 Discontinued 30 mg IM X1 ONE Vital Signs Vital signs: Vital Signs Temperature 99.0 F 04/10/25 17:28 Pulse Rate 113 H 04/10/25 17:28 Respiratory Rate 18 04/10/25 17:28 Blood Pressure 112/77 04/10/25 17:28 Pulse Oximetry (%) 98 04/10/25 17:28 Oxygen Delivery Method Room Air 04/10/25 17:28 Dizziness MDM Narrative MDM Narrative:: 24-year-old female patient with significant history of ulcerative colitis, came in with family for evaluation regarding dizziness. Patient been having symptoms for at least 1 week, getting worse for the last 2 days, severity of symptoms moderate. Patient denies any vomiting blood. Denies any abdominal pain. Denies any other complaints. Currently on infusion for ulcerative colitis. She has a history of anemia in the past and received 2 units of packed RBC. Denies any other complaints. Patient's laboratory workup is significant for hemoglobin of 6.6 hematocrit of 24.1 platelet 526 CMP unremarkable urinalysis no UTI CT scan of the abdomen and pelvis showed Moderate right mild left renal parenchymal scar formation, no hydronephrosis or ureteral calculi. No periappendiceal inflammatory change. Multiple small lymph nodes in the right mesentery adjacent to the cecum which can be seen with mesenteric adenitis Mild diffuse nonspecific colitis pattern Patient received 2 units of packed RBC no posttransfusion reaction noted, patient stable for discharge home. Patient data External records reviewed:: None Clinical information provided by:: patient and family Social determinants that could affect healthcare access:: none Patient has the following chronic illnesses:: History of ulcerative colitis, history of chronic anemia How is presenting disease/condition affected by chronic disease/condition?: exacerbated by Evaluation data The following diagnostics were reviewed and interpreted by me:: lab results and radiology exam(s) Lab and/or radiology exams considered but not ordered:: None Interpretation Summary: See results MDM Medications / Prescriptions Medications or Prescriptions considered but not ordered:: None Medication administrations:: Medication Administration History Discontinued Medications Ketorolac Tromethamine (Ketorolac Inj 60 Mg/2 Ml Vial) 30 mg IM X1 ONE Stop: 04/10/25 17:45 Last Admin: 04/10/25 19:10 Dose: 30 mg Documented By: Toradol IM Consultations Consultation(s) initiated? (list below): No Diagnosis Dizziness Differential Diagnosis: other (Anemia, history of ulcerative colitis, iron deficiency anemia) Most likely diagnosis given after review of the tests above:: Anemia, history of ulcerative colitis Admission Indicated Admission indicated?: not indicated Admission Request Was there a request for admission?: No Disposition Plan Disposition Plan: Discharge Discharge Attestation Discharge Attestation: The patient and all family members were given an opportunity to ask questions and understood the discharge instructions. Discharge instructions specifically effects, indications for sooner follow up or return to the emergency department, and the expected course of current diagnosis. Patient condition: Stable Discharge Plan Plan Patient Disposition: HOME (Self Care) Discharge Disposition comment: Stable Prescriptions/Referrals Prescriptions/Med Rec: No Action pantoprazole [Protonix] [address] for susp in packet 40 mg PO QDAY Qty: 30 0RF ondansetron 4 mg tablet,disintegrating 4 mg PO Q8H PRN (Reason: nausea and vomiting) Qty: 20 0RF Referrals: Jessee Rivers MD [Primary Care Provider, Internal Medicine] - In 1 week Problem List Clinical Impression: Anemia, Ulcerative colitis Patient/Caregiver Discharge Instructions Discharge Activity: activity as tolerated Education Materials: Anemia Additional Instructions: Thank you for the opportunity for serving you today. You are stable for discharged . 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
[2025-04-10 21:33] LABS: Path Review Blood Smear Sent to Pathologist
[2025-04-11 01:49] VITALS: BP 112/70; PULSE 100; RESP 20; TEMP 36.8; O2SAT 100
[2025-04-11 01:51] VITALS: BP 112/70; PULSE 100; RESP 20; TEMP 36.8; O2SAT 100
== END 2025-04-11 01:53 | disposition home or self-care (01) ==
PROVIDERS: Nurse Practitioner Family; Emergency Provider Emergency Medicine
DX: D64.9 Anemia, unspecified (principal); K51.90 Ulcerative colitis, unspecified, without complications
CPT/HCPCS: 36415; 36430; 74176; 80053; 81001; 81025; 83690; 85025; 85610; 85730; 86850; 86870; 86900; 86901; 86902; 86921; 86922; 87077; 87086; 87186; 96372; 99284; J1885; P9016

== ENCOUNTER 2025-04-12 10:21 | Inpatient (IN) | payer MEDICAID, SELFPAY ==
[2025-04-12] VITALS (14 sets, daily range): BP systolic 104–127; BP diastolic 67–83; PULSE 86–134; RESP 18–100; TEMP 36.2–39; O2SAT 99–100; BMI 31.0; BMI 30.2
--- NOTE | 2025-04-12 10:47 | PD.EDRME ---
Rapid Medical Screening Exam [facility] Arrival date/time: 04/12/25 10:21 This is a 24-year-old female that comes into the emergency room with complaints of back pain lower abdominal pain fever tachycardia and vomiting. Patient was just here and discharged after receiving a blood transfusion. Patient did fine after the blood transfusion but they stated that when she woke up she was just vomiting and had severe abdominal pain, fever and back pain. Patient states that she was not having any more rectal bleeding she does have a history of ulcerative colitis but started having more bloody stools this morning. I have greeted and performed a focused initial assessment of this patient. Initial appropriate labs ordered at this time. A comprehensive ED assessment and evaluation of the patient and analysis of all test and completion of medical decision making process will be conducted by additional ED provider. Time Seen by Provider: 04/12/25 10:36 Vital signs: Vital Signs Temperature 100.5 F H 04/12/25 10:44 Pulse Rate 134 H 04/12/25 10:44 Respiratory Rate 19 04/12/25 10:44 Blood Pressure 116/71 04/12/25 10:44 Pulse Oximetry (%) 99 04/12/25 10:44 Oxygen Delivery Method Room Air 04/12/25 10:44
--- NOTE | 2025-04-12 11:04 | EKG_ITS ---
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
--- NOTE | 2025-04-12 11:04 | XR_ITS ---
Examination: AP chest single view Technique: Portable sitting AP chest single view Date and time: April 12, 2025, 11:27 AM, comparison 04/10/2024 Indications: Shortness of breath sepsis protocol today. Findings: Normal heart size. The lungs are clear. The osseous structures are intact. Impression: No active disease.
--- NOTE | 2025-04-12 11:04 | PD.EDFEVER ---
ED Fever RME/HPI General Stated Complaint: FEVER, SHAKEY, BLOOD IN STOOL SINCE GOT BLOOD Time Seen by Provider: 04/12/25 10:36 Arrival date/time: 04/12/25 10:21 RME / HPI RME / HPI Narrative: 04/12/25 10:21 This is a 24-year-old female that comes into the emergency room with complaints of back pain lower abdominal pain fever tachycardia and vomiting. Patient was just here and discharged after receiving a blood transfusion. Patient did fine after the blood transfusion but they stated that when she woke up she was just vomiting and had severe abdominal pain, fever and back pain. Patient states that she was not having any more rectal bleeding she does have a history of ulcerative colitis but started having more bloody stools this morning. I have greeted and performed a focused initial assessment of this patient. Initial appropriate labs ordered at this time. A comprehensive ED assessment and evaluation of the patient and analysis of all test and completion of medical decision making process will be conducted by additional ED provider. See MDM for Dr. Matos's HPI documentation. Related Data Previous Rx's ?Medication ?Instructions ?Recorded ondansetron 4 mg disintegrating 4 mg PO Q8H PRN nausea and 11/04/24 tablet vomiting #20 tabs pantoprazole 40 mg granules 40 mg PO QDAY #30 ea 11/04/24 delayed-release for susp in packet (Protonix) Allergies Allergy/AdvReac Type Severity Reaction Status Date / Time infliximab-dyyb Allergy Severe Difficulty Verified 04/12/25 10:24 Breathing Review of Systems Review of Systems Systems Reviewed: All systems reviewed, normal except as documented Past Medical History Past Medical History NEUROLOGIC: Negative Neurological Disorders or Seizures CARDIAC: Negative Cardiac Disorders, Myocardial Infarction, Cardiac Arrhythmia, Atrial Fibrillation, Angina, Heart Murmur, Coronary Artery Disease, Atherosclerotic Heart Disease, Peripheral Vascular Disease, Hypercholesterolemia, Aneurysm, Congestive Heart Failure, Congenital Heart Disease, Valvular Heart Disease, Rheumatic Fever, Cardiomyopathy, Edema, Pericarditis, Cellulitis, Deep Vein Thrombosis, Hypertension, Hypotension or Varicose Veins RESPIRATORY: Negative Chronic Obstructive Pulmonary Disease (COPD) or Asthma GASTROINTESTINAL: Positive Gastrointestinal Disorders, Gastrointestinal Bleed, Ulcerative Colitis, Irritable Bowel (uc) and Obesity; Negative Hepatitis, Cirrhosis, Pancreatitis, Celiac Disease, Gall Bladder Disease, Esophageal Varices, Hernandez's Esophagus, Colitis, Diverticulitis, Diverticulosis, Ulcer, Colorectal Cancer, Crohn's Disease, Obstructive Bowel, Hiatal Hernia, Hemorrhoids or Gastroesophageal Reflux Disease GENITOURINARY: Negative Genitourinary Disorders, Renal Disease, Kidney Stones, Polycystic Kidney Disease, Neurogenic Bladder, Inguinal Hernia, Dialysis, Prostate Cancer or Benign Prostatic Hyperplasia REPRODUCTIVE: Negative Breast Cancer, Pelvic Inflammatory Disease or Testicular Cancer MUSCULOSKELETAL: Negative Musculoskeletal Disorders or Bone Cancer ENT: Negative Cataracts, Glaucoma, Blind, Retinal Detachment, Macular Degeneration, Ear Infection, Deafness or Eye Prosthesis ENDOCRINE: Positive Endocrine Disorders and Hypothyroidism; Negative Diabetes Mellitus Type 1, Diabetes Mellitus Type 2, Hypoglycemia, [place]'s Syndrome, [place]'s Disease, Hyperthyroidism, Parathyroid Disease, Pituitary Disease, Systemic Lupus Erythematosus, Syndrome of Inappropriate Antidiuretic Hormone (SIADH), Adrenal Disease or Graves' Disease HEMATOLOGIC: Positive Blood Disorders and Anemia; Negative Leukemia, Hemophilia, Thalassemia, Sickle Cell Disease or Clotting Problems PSYCHO/SOCIAL: Positive Anxiety OTHER HISTORY: Positive Hospitalization and Blood Transfusions; Negative Autoimmune Disease, Down Syndrome, Developmental Delay, Shingles, Falls, Blood Transfusion Reaction, Anesthesia Reactions, Organ Transplant, Chemotherapy, Radiation Therapy, Hyperbaric Therapy, MRSA, VRSA, Vancomycin-Resistant Enterococci, Human Immunodeficiency Virus (HIV), Chicken Pox, Measles, Mumps, Rubella (Lao Measles), Pertussis, Clostridium Difficile, Cancer, Breast Cancer, Cervical Cancer, Colorectal Cancer, Lung Cancer, Ovarian Cancer, Prostate Cancer or Testicular Cancer Family History FAMILY HISTORY: Negative Family Psychiatric Problems, Family Respiratory Disorders, Family Cardiac Disorders, Family Gastrointestinal Problems, Family Cancer, Family Surgery or Family Anesthesia Reaction Surgical History SURGICAL: Positive Section; Negative Cardiac Surgery, Pacemaker, Endocrine Surgery, Ear Surgery, Eye Surgery, Nose Surgery, Oral Surgery, Throat Surgery, Abdominal Surgery, Nephrectomy, Transurethral Resection, Joint Replacement, Neurologic Surgery, Brain Shunt, Mastectomy, Lumpectomy, Hysterectomy, Tubal Ligation, Vasectomy or Organ Transplant Social History SMOKING STATUS: Never smoker SECOND HAND EXPOSURE: No SUBSTANCE USE: does not use Physical Exam Narrative Physical exam: See [facility] for Dr. Matos's physical exam documentation. Course Quality Measures none Orders Category Date Time Status Bedside Blood Glucose NOW Care 04/12/25 11:04 Active Bedside COVID-19 Antigen Test NOW Care 04/12/25 10:46 Active Bedside Influenza A&B Antigen Test NOW Care 04/12/25 10:46 Completed Adult Basic Education Instructor now Care 04/12/25 11:04 Active Continuous Pulse Oximetry NOW Care 04/12/25 11:04 Active Insert IV NOW Care 04/12/25 11:04 Active Strict Intake and Output Routine Care 04/12/25 11:04 Ordered XR chest 1V SEPSIS PROTOCOL Stat Exams 04/12/25 11:04 Ordered Blood Culture (Lab) Stat Lab 04/12/25 11:04 Ordered CBC Stat Lab 04/12/25 10:46 Ordered Comprehensive Metabolic Panel Stat Lab 04/12/25 10:46 Ordered Lactate (Lactic Acid) Stat Lab 04/12/25 11:04 Ordered Procalcitonin Stat Lab 04/12/25 11:04 Ordered Prothrombin Time with INR Stat Lab 04/12/25 11:04 Ordered Troponin I Stat Lab 04/12/25 11:04 Ordered Type and Screen Stat Lab 04/12/25 10:47 Ordered Urinalysis Stat Lab 04/12/25 11:04 Ordered Urine Culture Stat Lab 04/12/25 11:04 Ordered EKG (RT) Stat RT 04/12/25 11:04 Ordered Oxygen Delivery NOW RT 04/12/25 11:04 Active Vital Signs Vital signs: Vital Signs Temperature 100.5 F H 04/12/25 10:44 Pulse Rate 134 H 04/12/25 10:44 Respiratory Rate 19 04/12/25 10:44 Blood Pressure 116/71 04/12/25 10:44 Pulse Oximetry (%) 99 04/12/25 10:44 Oxygen Delivery Method Room Air 04/12/25 10:44 Fever MDM Narrative MDM Narrative:: This section includes all my notes and documentations, including HPI, PE, and ED course. Major Matos MD HPI: ROS: All negative except as documented in HPI. Physical Exam: GENERAL APPEARANCE: alert and oriented x 4, well-developed, well-nourished, no acute distress VITALS: All vitals were reviewed and the pulse ox is % on room air, which is normal according to my interpretation. HEENT: Normocephalic, atraumatic; pupils equal, round, reactive to light; EOMI; mucous membranes pink, moist; oropharynx clear NECK: Supple LUNGS: CTABL; no wheezes, no rales, no rhonchi HEART: Regular rate, regular rhythm; normal S1, S2; no murmurs ABDOMEN: non distended; normal BS; soft, no tenderness, no guarding, no rebound; no masses, no organomegaly, no hernia BACK: no CVA tenderness EXTREMITIES: atraumatic; no edema NEUROLOGIC: awake; alert and oriented x4; cranial nerves II-XII grossly intact; no focal sensory or motor deficits PSYCHIATRIC: appropriate mood and affect SKIN: warm, dry, normal color; no rashes I reviewed all diagnostic test results. My interpretation of the EKG is sinus tachycardia with no ST-T changes. At this point, diagnoses include: Treatment here included: Significant improvement noted. Recommended outpatient care. Based on my best medical judgment, made decision no further evaluation or treatment indicated at this time. Patient understands and agrees to the customized discharge instructions and printed, see below. Discharge instructions from Dr. Matos: Patient data External records reviewed:: [facility] previous records (Per chart review, patient was seen here on 04/10/25 for anemia.) Clinical information provided by:: patient Social determinants that could affect healthcare access:: none Patient has the following chronic illnesses:: ulcerative colitis How is presenting disease/condition affected by chronic disease/condition?: uneffected by Evaluation data The following diagnostics were reviewed and interpreted by me:: lab results and EKG tracing(s) (done at 1100, sinus tachycardia, rate of 125, normal axis, no ectopy, no acute ischemia, according to my interpretation.) Lab and/or radiology exams considered but not ordered:: none Discharge Plan Prescriptions/Referrals Prescriptions/Med Rec: No Action pantoprazole [Protonix] 40 mg granules for susp in packet 40 mg PO QDAY Qty: 30 0RF ondansetron 4 mg tablet,disintegrating 4 mg PO Q8H PRN (Reason: nausea and vomiting) Qty: 20 0RF Patient/Caregiver Discharge Instructions Print Language: [place]
--- NOTE | 2025-04-12 11:18 | EDNOTE_ITS ---
ED General RME/HPI General Stated complaint: FEVER, SHAKEY, BLOOD IN STOOL SINCE GOT BLOOD Time Seen by Provider: 04/12/25 10:36 Arrival date/time: 04/12/25 10:21 CC: Fever, diarrhea HPI patient had a transfusion completion last night at 2 AM, 2 hours later patient woke up with a fever , also states that she had 10+ episodes of foul-smelling watery diarrhea in the past 8 hours. Patient denies chest pain shortness of breath or difficulty breathing. Patient has extensive history of anemia and ulcerative colitis has required multiple transfusions in the past. The patient's last admission was in [place] in November 2024 at which time the patient received antibiotics while inpatient. Low center abdominal pain since Skyrizi infusion on Sunday, 5 days ago at outpatient clinic. Currently the patient is awake tachycardic answering all questions appropriately not complaining of any pain. Review of the medical record show the last admission at this facility was in April 2024, for ulcerative colitis and chronic anemia. RME / HPI RME / HPI narrative: 04/12/25 10:21 This is a 24-year-old female that comes into the emergency room with complaints of back pain lower abdominal pain fever tachycardia and vomiting. Patient was just here and discharged after receiving a blood transfusion. Patient did fine after the blood transfusion but they stated that when she woke up she was just vomiting and had severe abdominal pain, fever and back pain. Patient states that she was not having any more rectal bleeding she does have a history of ulcerative colitis but started having more bloody stools this morning. I have greeted and performed a focused initial assessment of this patient. Initial appropriate labs ordered at this time. A comprehensive ED assessment and evaluation of the patient and analysis of all test and completion of medical decision making process will be conducted by additional ED provider. See [facility] for Dr. Matos's HPI documentation. Related Data Previous Rx's ?Medication ?Instructions ?Recorded ondansetron 4 mg disintegrating 4 mg PO Q8H PRN nausea and 11/04/24 tablet vomiting #20 tabs pantoprazole 40 mg granules 40 mg PO QDAY #30 ea 11/04 delayed-release for susp in packet (Protonix) Allergies Allergy/AdvReac Type Severity Reaction Status Date / Time infliximab-dyyb Allergy Severe Difficulty Verified 04/12/25 10:24 Breathing Review of Systems Review of Systems Narrative Review of Systems: GEN: + fever, no chills, no weight loss EYES: No discharge, no visual changes, no pain HEENT: No ear pain, no congestion, no sore throat PULM: No shortness of breath, no cough, no congestion CV: No chest pain, no dyspnea on exertion, no palpitations GI: No nausea, no vomiting, + diarrhea, no pain, no constipation : No frequency, no urgency, no dysuria MUSC/SKEL: No joint pain, no back pain SKIN: No rash PSYCH: No hallucinations, no depression HEME/LYMPH: No easy bleeding or bruising tendencies NEURO: No weakness, no headache Past Medical History Past Medical History NEUROLOGIC: Negative Neurological Disorders or Seizures CARDIAC: Negative Cardiac Disorders, Myocardial Infarction, Cardiac Arrhythmia, Atrial Fibrillation, Angina, Heart Murmur, Coronary Artery Disease, Atherosclerotic Heart Disease, Peripheral Vascular Disease, Hypercholesterolemia, Aneurysm, Congestive Heart Failure, Congenital Heart Disease, Valvular Heart Disease, Rheumatic Fever, Cardiomyopathy, Edema, Pericarditis, Cellulitis, Deep Vein Thrombosis, Hypertension, Hypotension or Varicose Veins RESPIRATORY: Negative Chronic Obstructive Pulmonary Disease (COPD) or Asthma GASTROINTESTINAL: Positive Gastrointestinal Disorders, Gastrointestinal Bleed, Ulcerative Colitis, Irritable Bowel (uc) and Obesity; Negative Hepatitis, Cirrhosis, Pancreatitis, Celiac Disease, Gall Bladder Disease, Esophageal Varices, Hernandez's Esophagus, Colitis, Diverticulitis, Diverticulosis, Ulcer, Colorectal Cancer, Crohn's Disease, Obstructive Bowel, Hiatal Hernia, Hemorrhoids or Gastroesophageal Reflux Disease GENITOURINARY: Negative Genitourinary Disorders, Renal Disease, Kidney Stones, Polycystic Kidney Disease, Neurogenic Bladder, Inguinal Hernia, Dialysis, Prostate Cancer or Benign Prostatic Hyperplasia REPRODUCTIVE: Negative Breast Cancer, Pelvic Inflammatory Disease or Testicular Cancer MUSCULOSKELETAL: Negative Musculoskeletal Disorders or Bone Cancer ENT: Negative Cataracts, Glaucoma, Blind, Retinal Detachment, Macular Degeneration, Ear Infection, Deafness or Eye Prosthesis ENDOCRINE: Positive Endocrine Disorders and Hypothyroidism; Negative Diabetes Mellitus Type 1, Diabetes Mellitus Type 2, Hypoglycemia, Alla's Syndrome, Concordia's Disease, Hyperthyroidism, Parathyroid Disease, Pituitary Disease, Systemic Lupus Erythematosus, Syndrome of Inappropriate Antidiuretic Hormone (SIADH), Adrenal Disease or Graves' Disease HEMATOLOGIC: Positive Blood Disorders and Anemia; Negative Leukemia, Hemophilia, Thalassemia, Sickle Cell Disease or Clotting Problems PSYCHO/SOCIAL: Positive Anxiety OTHER HISTORY: Positive Hospitalization and Blood Transfusions; Negative Autoimmune Disease, Down Syndrome, Developmental Delay, Shingles, Falls, Blood Transfusion Reaction, Anesthesia Reactions, Organ Transplant, Chemotherapy, Radiation Therapy, Hyperbaric Therapy, MRSA, VRSA, Vancomycin- Resistant Enterococci, Human Immunodeficiency Virus (HIV), Chicken Pox, Measles, Mumps, Rubella (Prydeinig Measles), Pertussis, Clostridium Difficile, Cancer, Breast Cancer, Cervical Cancer, Colorectal Cancer, Lung Cancer, Ovarian Cancer, Prostate Cancer or Testicular Cancer Family History FAMILY HISTORY: Negative Family Psychiatric Problems, Family Respiratory Disorders, Family Cardiac Disorders, Family Gastrointestinal Problems, Family Cancer, Family Surgery or Family Anesthesia Reaction Surgical History SURGICAL: Positive Section; Negative Cardiac Surgery, Pacemaker, Endocrine Surgery, Ear Surgery, Eye Surgery, Nose Surgery, Oral Surgery, Throat Surgery, Abdominal Surgery, Nephrectomy, Transurethral Resection, Joint Replacement, Neurologic Surgery, Brain Shunt, Mastectomy, Lumpectomy, Hysterectomy, Tubal Ligation, Vasectomy or Organ Transplant Social History SMOKING STATUS: Never smoker SECOND HAND EXPOSURE: No SUBSTANCE USE: does not use ED Exam Narrative Physical exam: [General: In moderate discomfort acute distress Head normocephalic HEENT: Eyes pupils are PERRLA EOMs are intact mouth pink moist membranes uvula is midline swallow symmetrical phonation is normal all of the subsystems of HEENT are within acceptable limits Neck is supple nontender no edema no erythema Chest equal chest rise nontender to palpation Respiratory: Clear to auscultation no wheezes crackles or rubs CV: Rate rhythm is regular no murmurs rubs or clicks Abdomen bilateral lower quadrant abdominal pain mild reflexive guarding no rebound tenderness. Positive bowel sounds. Back: No CVA tenderness no spinous process tenderness from cervical spine thoracic and lumbar spine Skin: Intact no petechiae rash induration ulceration or crepitus Extremities: Moving all extremity against resistance cap refill less than 2 seconds neurosensory intact Neuro: Awake alert oriented x3 Glascow coma 15 no focal deficits] Course Course Course Narrative: Patient's case and clinical presentation laboratory results and imaging discussed with Dr. Amaya, resident for Dr. Pham attending who agrees to accept the patient for admission. Quality Measures none Orders Category Date Time Status Bedside Blood Glucose NOW Care 04/12/25 11:04 Active Bedside COVID-19 Antigen Test NOW Care 04/12/25 10:46 Active Bedside Influenza A&B Antigen Test NOW Care 04/12/25 10:46 Completed Tow Truck Driver STAT Care 04/12/25 11:31 Active Tow Truck Driver now Care 04/12/25 11:04 Active Continuous Pulse Oximetry NOW Care 04/12/25 11:04 Completed Continuous Pulse Oximetry STAT Care 04/12/25 11:31 Completed Insert IV NOW Care 04/12/25 11:04 Active NPO STAT Care 04/12/25 11:31 Active Strict Intake and Output Routine Care 04/12/25 11:04 Ordered Strict Intake and Output Routine Care 04/12/25 11:[address] abdomen pelvis wo con Stat Exams 04/12/25 12:14 Completed XR chest 1V SEPSIS PROTOCOL Stat Exams 04/12/25 11:04 Completed B-Type Natriuretic Peptide Stat Lab 04/12/25 11:41 Completed Blood Culture (Lab) Stat Lab 04/12/25 11:41 Received CBC Stat Lab 04/12/25 11:41 Completed Comprehensive Metabolic Panel Stat Lab 04/12/25 11:41 Completed HCG Qualitative,Urine Stat Lab 04/12/25 12:30 Completed LDH (Lactate Dehydrogenase) Stat Lab 04/12/25 11:41 Completed Lactate (Lactic Acid) Stat Lab 04/12/25 11:41 Completed Lactic Acid, 3 HR Stat Lab 04/12/25 14:55 Ordered Magnesium Stat Lab 04/12/25 11:41 Completed Partial Thromboplastin Time Stat Lab 04/12/25 11:41 Completed Phosphorous Stat Lab 04/12/25 11:41 Completed Procalcitonin Stat Lab 04/12/25 11:41 Completed Prothrombin Time with INR Stat Lab 04/12/25 11:41 Completed Troponin I Stat Lab 04/12/25 11:41 Completed Urinalysis Stat Lab 04/12/25 12:30 Completed Urine Culture Stat Lab 04/12/25 12:30 Received c diff [Clostridium Difficile PCR] Stat Lab 04/12/25 Ordered Acetaminophen Tab [Tylenol Tab] Med 04/12/25 11:49 Discontinued 650 mg PO X1 ONE Piper/Tazo 3.375 gm Premix [Zosyn] Med 04/12/25 12:11 Discontinued 3.375 gm in 50 ml IV X1 Ringers Lactated 1000 ml [Lactated Ringers] 1,000 ml Med 04/12/25 13:00 Discontinued IV 999 mls/hr Ringers Lactated 1000 ml [Lactated Ringers] 1,000 ml Med 04/12/25 13:01 Discontinued IV 999 mls/hr EKG (RT) Stat RT 04/12/25 11:04 Ordered Oxygen Delivery NOW RT 04/12/25 11:04 Active Vital Signs Vital signs: Vital Signs Temperature 100.5 F H 04/12/25 10:44 Pulse Rate 134 H 04/12/25 10:44 Respiratory Rate 19 04/12/25 10:44 Blood Pressure 116/71 04/12/25 10:44 Pulse Oximetry (%) 99 04/12/25 10:44 Oxygen Delivery Method Room Air 04/12/25 10:44 Discharge Plan Plan Patient Disposition: Other Care w/in Hosp (SDC/HIRAM) Patient condition on transfer: Stable Prescriptions/Referrals Prescriptions/Med Rec: No Action pantoprazole [Protonix] [address] for susp in packet 40 mg PO QDAY Qty: 30 0RF ondansetron 4 mg tablet,disintegrating 4 mg PO Q8H PRN (Reason: nausea and vomiting) Qty: 20 0RF Referrals: No Primary/Family,Physician [Primary Care Provider] - In 1 week Problem List Clinical Impression: Fever, Sepsis, Abdominal pain, Anemia Patient/Caregiver Discharge Instructions Print Language: Yi Stand Alone Forms: [employer] Award Info., Patient Portal Info Letter PA/SPEECH SCIENTIST Supervising Physician PA/SPEECH SCIENTIST Supervising Physician: Anselmo Cabezas ENP [facility] Clinical Information Provided by patient Medical Records Reviewed [facility] Meds/Rx Considered, not Ordered None Labs/Rad/Tests considered, not Ordered None Chronic Illness/Social Conditions Add or document further as needed: IBS chronic anemia multiple transfusions EKG EKG Interpretation narrative: EKG performed at 1100 shows a ventricular rate of 125 UT interval 107 UT interval of 8 7 QTc of 355 is sinus tachycardia. Lab Interpretation Lab(s) interpretation(s): COVID influenza are negative CBC shows no leukocytosis and anemia of 9.4 and 32.4 respectively for hemoglobin and hematocrit. Platelets at 426. No bandemia Coags within acceptable limits CMP shows a potassium of 5.3. BUN of 8 no other electrolyte imbalances renal impairment or transaminitis. T. bili elevated at 1.3. Troponin is negative BNP is unremarkable. Procalcitonin at 0.73 Lactic acid of 3.1 Imaging Provider imaging interpretation(s): Chest x-ray as interpreted by me shows no significant abnormality that requires emergent or immediate intervention. Medication Administration(s) Medication Administration History Discontinued Medications Acetaminophen (Acetaminophen 325 Mg Tablet) 650 mg PO X1 ONE Stop: 04/12/25 11:50 Last Admin: 04/12/25 11:57 Dose: 650 mg Documented By: BY Piperacillin/Tazobactam/Dextrose (Zosyn) 3.375 gm in 50 mls @ 100 mls/hr IV X1 ONE Stop: 04/12/25 12:40 Last Infusion: 04/12/25 14:08 Dose: Infused Documented By: Admin: 04/12/25 12:41 Dose: 100 mls/hr Documented By: BY Lactated Ringer's (Lactated Ringers) 1,000 mls @ 999 mls/hr IV .Q1H1M ONE Stop: 04/12/25 14:00 Last Admin: 04/12/25 14:14 Dose: 999 mls/hr Documented By: DB Lactated Ringer's (Lactated Ringers) 1,000 mls @ 999 mls/hr IV .Q1H1M ONE Stop: 04/12/25 14:01
[2025-04-12] MEDS: ACETAMINOPHEN 325 MG TABLET 650 MG PO (11:57)
--- NOTE | 2025-04-12 12:00 | PC.NURSE ---
parent called and gave verbal consent for patient to recieve treatment, # [phone]
[2025-04-12 12:02] LABS: Lactate (Lactic Acid) 3.1 mMol/L (0.4-2.0)
[2025-04-12 12:12] LABS: Basophils # (Auto) 0.0 Thou/mm3 (0.0-0.2); Basophils % (Auto) 1 % (0-2.5); Eosinophils # (Auto) 0.0 Thou/mm3 (0.0-0.5); Eosinophils % (Auto) 1 % (0-10); Hematocrit 32.4 % (36.0-46.0); Hemoglobin 9.4 g/dL (12.0-16.0); Immature Granulocytes Auto 0.01 Thou/mm3 (0.00-0.00); Lymphocytes # (Auto) 0.7 Thou/mm3 (1.0-4.8); Lymphocytes % (Auto) 13 % (10-50); Mean Corpuscular HGB Conc 29.0 g/dl (31.0-37.0); Mean Corpuscular Hemoglobin 20.5 pg (25.0-35.0); Mean Corpuscular Volume 71 fL (80-100); Monocytes # (Auto) 0.7 Thou/mm3 (0.0-0.8); Monocytes % (Auto) 13 % (0-12); Neutrophils # (Auto) 3.9 Thou/mm3 (1.8-7.7); Neutrophils % (Auto) 73 % (37-80); Nucleated Red Blood Cell # 0.00 Thou/mm3 (0.00-0.00); Nucleated Red Blood Cell % 0 /100 WBC (0); Platelet Count 426 Thou/mm3 (140-440); RDW Standard Deviation 59.6 fL (36.4-46.3); Red Blood Count 4.58 Miln/mm3 (4.00-5.20); White Blood Count 5.4 Thou/mm3 (3.6-11.0)
--- NOTE | 2025-04-12 12:14 | XR_ITS ---
Examination: CT abdomen and pelvis without contrast. Coronal 3-D reconstructions. Sagittal 2-D reconstructions. Date and time of exam:April 12, 2025, 1424 hrs. Indications:: Generalized abdominal pain today. Technique: Axial images of the abdomen have been obtained, 3 mm slice thickness Intravenous contrast material has not been administered. Low dose protocols were performed. One or more of the following dose reduction techniques were used; automated exposure control, adjustment of the mA and/or KV according to patient size, use of iterative reconstruction technique. Findings: No liver or splenic lesions Fatty infiltration throughout the liver. No gallstones. No pancreatic or adrenal mass. No renal or ureteral calculi, no Exam: Normal appendix. No bowel obstruction. Mild diffuse colitis. No pelvic mass Urinary bladder intact. Impression: Mild nonspecific colitis pattern
[2025-04-12 12:28] LABS: INR 1.1 (0.9-1.3); Partial Thromboplastin Time 26.2 Seconds (22.0-36.0); Prothrombin Time 11.7 Seconds (9.0-12.2)
[2025-04-12 12:38] LABS: Alanine Aminotransferase 11 U/L (10-49); Albumin, Serum 2.9 gm/dL (3.5-5.0); Albumin/Globulin Ratio 0.8 (1.2-2.2); Alkaline Phosphatase 107 U/L (46-116); Anion Gap 12 (7-16); Aspartate Amino Transferase 51 U/L (0-34); BUN/Creatinine Ratio 9 Ratio (12-20); Bilirubin,Total 1.3 mg/dL (0.3-1.2); Blood Urea Nitrogen 8 mg/dL (9-23); Calcium 8.5 mg/dL (8.3-10.6); Calcium (Corrected) 9.4 mg/dL (8.5-10.1); Carbon Dioxide 22.5 mMol/L (20.0-31.0); Chloride 103 mMol/L (98-107); Creatinine (Component) 0.9 mg/dL (0.6-1.3); Estimated Creatinine Clearance 118.4 mL/min (>60); Globulin 3.6 gm/dL (2.3-3.5); Glucose 87 mg/dL (74-106); Osmolality,Calculated 271 (275-295); Potassium 5.3 mMol/L (3.4-5.1); Total Protein 6.5 gm/dL (5.7-8.2); eGFR > 60 See Note
[2025-04-12] MEDS: PIPER/TAZO 3.375 GM PREMIX 3.375 GM/50 ML BAG IV ×2 (12:41→22:06)
[2025-04-12 12:44] LABS: LDH (Lactate Dehydrogenase) 153 U/L (120-246); Magnesium 2.0 mg/dL (1.6-2.6); Phosphorous 2.9 mg/dL (2.4-5.1); Procalcitonin 0.72 ng/ml (0.0-0.49); Troponin I < 0.002 ng/mL (0.0-0.045)
[2025-04-12 12:54] LABS: Sodium 137 mMol/L (136-145)
[2025-04-12 13:12] LABS: Collection Type, Urine Clean Catch
[2025-04-12 13:26] LABS: B-Type Natriuretic Peptide < 20 pg/mL (0-100)
[2025-04-12 13:50] LABS: HCG Qualitative,Urine Negative
[2025-04-12 14:09] LABS: Bilirubin,Urine Negative (Negative); Blood,Urine Negative (Negative); Calcium Oxalate Crystals,Urine 2+; Clarity,Urine Clear (Clear/Hazy); Color,Urine Yellow (Lt Yel-Yel); Glucose, Urine Negative (Negative); Ketones,Urine Negative (Negative); Leukocyte Esterase,Urine Negative (Negative); Nitrite,Urine Negative (Negative); PH,Urine 7.0 (5.0-7.0); Protein,Urine 1+ (Neg - Trace); RBC,Urine < 1 /hpf (0-3); Specific Gravity,Urine 1.032 (1.001-1.035); Squamous Epithelial Cell,Urine 2 /hpf (0-5); Urobilinogen,Urine 2.0 mg/dL (0.0-1.0); WBC,Urine 5 /hpf (0-5)
[2025-04-12] MEDS: RINGERS LACTATED 1000 ML 1,000 ML 999 ML IV ×2 (14:14→15:00)
[2025-04-12 14:55] LABS: Reflex Lactate? Y
--- NOTE | 2025-04-12 16:25 | ESHP_ITS ---
Documentation for date of: 04/12/25 [facility] History of Present Illness Chief complaint: Bloody diarrhea, abdominal pain, high-grade fever History of present illness: Ms. Salamanca is a 24-year-old female with past medical history significant for ulcerative colitis on Skyrizi (risankizumab-rzaa) since November 2024 who presented to the ED this morning with worsening left-sided abdominal pain, high- grade fever and bloody diarrhea. Associated symptoms also include several episodes of vomiting this morning. Patient noted that she got her recent Skyrizi infusion on 04/07/2025 and shortly after patient started having left-sided lower abdominal pain which radiated to the left flank and gradually started radiating to her stomach and left shoulder. On Sunday, next day patient also noted to have bloody diarrhea about 10 episodes daily and her abdominal pain continued to get worse. Patient currently rates her pain 9 out of 10 and is better when she sits up. Patient states that since starting Skyrizi, patient has had her diarrhea controlled and has never had the symptoms since November 2024. Patient also went to the ER yesterday for blood transfusion, received 2 units and was sent home early yesterday morning at 2 AM. Of note, patient recently was in [place] admitted for IV antibiotics for possible colitis, however denies having these current symptoms. Patient last saw her GI doctor, Laura Chatman 2 months ago, and was recommended to stop taking her other GI medications such as Mesalamine, prednisone, pantoprazole. Patient has previously been on Entyvio infusions for about 5 months, and has also tried infliximab however has had severe allergies such as wheezing, shortness of breath, swelling face. ED course: Patient presented with blood pressure of 116/71, heart rate 134, fever of 100.5, later enrique to as high as 102.2 ?F. Labs significant for microcytic anemia, hyperkalemia of 5.3, elevated lactic acid, elevated total bilirubin, C-reactive protein 10.6, and procalcitonin 0.72. UA negative for UTI except for calcium oxalate crystals. Urine hCG negative. In the ER patient was given 2 L bolus LR, Tylenol, IV Zosyn x 1, stool culture and C. difficile. Sepsis alert was called, patient is completing her second out of third bolus. Patient be admitted to [facility] for further management of possible ulcerative colitis flare versus infectious etiology for colitis. Review of Systems Review of Systems Systems Reviewed: All systems reviewed, normal except as documented Past Medical History Past Medical History Comments PMH COMMENT: Past medical history: As mentioned above, did mention hypothyroidism however does not take any medications Past surgical history: x 1 Allergies: Infliximab?patient is unable to breathe, starts wheezing and face gets swollen Meds: Patient just takes Skyrizi every 8 weeks last dose was on Sunday Family history: Denies any autoimmune conditions, diabetes, cancers, hypothyroidism Social history: Denies any smoking, alcohol, other drug use Exam Vital Signs Temp Pulse Resp BP Pulse Ox O2 Del Method 98.8 F 102 H 20 127/68 100 Room Air 04/12/25 16:06 04/12/25 16:06 04/12/25 16:06 04/12/25 16:06 04/12/25 16:06 04/12/25 16:06 Narrative Exam General Appearance: Pt in mild acute distress, tearful due to pain HEENT: NC/AT, no scleral icterus, no conjunctival pallor, MMM Lungs: CTAB, no wheezes or crackles appreciated CVS: RRR, S1/S2 heard, no murmurs or rubs appreciated ABD: Soft, tender to touch to LLQ, non-distended, BS + in all 4 quadrants EXT: no deformity/edema/lesions/cyanosis/clubbing, radial pulses 2+ BL, DP pulses 2 + BL SKIN: Skin exam normal without any rashes. Neuro: A&O x 3. No gross neurological deficits. Motor and sensory grossly intact in B/L UL and LL. Psych: Appropriate mood and affect Results: Labs 04/13/25 04:56 04/13/25 04:56 Labs: Short CBC 04/12/25 Range/Units 11:41 WBC 5.4 (3.6-11.0) Thou/mm3 Hgb 9.4 L D (12.0-16.0) g/dL Hct 32.4 L (36.0-46.0) % Plt Count 426 D (140-440) Thou/mm3 BMP 04/12/25 11:41 Sodium 137 Potassium 5.3 H D Chloride 103 Carbon Dioxide 22.5 BUN 8 L Creatinine 0.9 Glucose 87 Calcium 8.5 Cardiac Enzymes 04/12/25 Range/Units 11:41 Troponin I < 0.002 (0.0-0.045) ng/mL Liver Function 04/12/25 Range/Units 11:41 Total Bilirubin 1.3 H D (0.3-1.2) mg/dL AST 51 H (0-34) U/L ALT 11 (10-49) U/L Alkaline Phosphatase 107 (46-116) U/L Albumin 2.9 L (3.5-5.0) gm/dL Urine 04/12/25 Range/Units 12:30 Urine Color Yellow (Lt Yel-Yel) Urine Clarity Clear (Clear/Hazy) Urine pH 7.0 (5.0-7.0) Ur Specific Elbert 1.032 (1.001-1.035) Urine Protein 1+ A (Neg - Trace) Urine Glucose (UA) Negative (Negative) Quality Measures Quality Measures none Medications Home Medications and Allergies Allergies Allergy/AdvReac Type Severity Reaction Status Date / Time infliximab-dyyb Allergy Severe Difficulty Verified 04/12/25 10:24 Breathing Visit Medications Hydrocodone Bitart/Acetaminophen (Hydrocodone/Apap 10/325 Tab) 1 tab PO Q4H PRN PRN Reason: PAIN SCALE 4-6 (Moderate Stop: 04/17/25 15:42 Lactated Ringer's (Lactated Ringers) 1,000 mls @ 100 mls/hr IV .Q10H RENATO Stop: 05/12/25 15:44 Methylprednisolone Sodium Succinate (Methylprednisolone Sod Succ 40 Mg/Ml Vial) 40 mg IVP BID RENATO Stop: 04/19/25 20:59 Metoclopramide HCl (Metoclopramide Inj 5 Mg/Ml Vial 2 Ml) 10 mg IVP Q6H PRN; Protocol PRN Reason: NAUSEA OR VOMITING Stop: 05/12/25 15:42 Morphine Sulfate (Morphine Sulf Inj 4 Mg/Ml Vial) 2 mg IVP Q4HR PRN PRN Reason: PAIN SCALE 7-10 (Severe Stop: 04/17/25 15:42 Pantoprazole Sodium (Pantoprazole Inj 40 Mg Vial) 40 mg IVP Q12HR RENATO Stop: 05/12/25 20:59 Discontinued Medications Acetaminophen (Acetaminophen 325 Mg Tablet) 650 mg PO X1 ONE Stop: 04/12/25 11:50 Last Admin: 04/12/25 11:57 Dose: 650 mg Piperacillin/Tazobactam/Dextrose (Zosyn) 3.375 gm in 50 mls @ 100 mls/hr IV X1 ONE Stop: 04/12/25 12:40 Last Infusion: 04/12/25 14:08 Dose: Infused Lactated Ringer's (Lactated Ringers) 1,000 mls @ 999 mls/hr IV .Q1H1M ONE Stop: 04/12/25 14:00 Last Admin: 04/12/25 14:14 Dose: 999 mls/hr Lactated Ringer's (Lactated Ringers) 1,000 mls @ 999 mls/hr IV .Q1H1M ONE Stop: 04/12/25 14:01 Morphine Sulfate (Morphine Sulf Inj 4 Mg/Ml Vial) 2 mg IVP X1 ONE Stop: 04/12/25 15:42 Assessment & Plan Plan Ms. Salamanca is a 24-year-old female with past medical history significant for ulcerative colitis on Skyrizi (risankizumab-rzaa) since November 2024 who presented to the ED this morning with worsening left-sided abdominal pain, high- grade fever and bloody diarrhea and admitted to [facility] for further management of possible ulcerative colitis flare versus infectious etiology for colitis on 04/12/25. #Sepsis 2/2 Infectious colitis vs #Ulcerative Colits flare #Intractable nausea/vomiting #Bloody diarrhea Patient presented with a high grade fever of 102F, tachycardia of 134 with possible source confirmed on CT Abdomen/Pelvis suggesting mild nonspecific colitis. Patient received her recent Skyrizi infusion on Sunday04/07/25, and shortly after began to have lower abdominal left sided abdominal pain, and next day started having 10 episodes of bloody diarrhea. Patient later had a high grade fever and intractable n/v early this morning. Patient received sepsis bolus for 30cc/kg ~2.8L; Elevated pro-ivette. End organ damage seen with impaired liver synthesis, seen as elevated bilirubin of 1.3, baseline around 0.7. -Admitted to Med/Surg -Consulted GI, and recommended to start IV Solumedrol 40mg BID, CRP lab, stool culture, and C-diff PCR, and will plan for colonoscopy prior to discharge once infectious etiology ruled out -IV Zosyn Q6HR -IV Maintenance fluids -Pending cultures -IV pain control, nausea -Tylenol for fever #Acute on Chronic Iron deficiency anemia in the setting of blood loss Initial Hgb 9.5 and platelets 444 Patient received 2 PRBC in ED in previous ED visit, 04/11/25 Hgb stable at 9.4 ?Transfuse if Hgb less than 7 ?Will continue to monitor Health maintenance: Disposition: Patient is admitted to Med/Surg for further management of IVD flare vs sepsis 2/2 infectious colitis Diet: CLD GI prophylaxis: Protonix BID DVT prophylaxis: SCDs Code: Full code The patient's management plan was discussed with my attending physician MD Emi Wong MD, PGY3 Attending Provider Attestation/Addendum I have examined the patient, reviewed labs and imaging findings, discussed the case with the resident(s), and reviewed entered orders. I agree with the plan of care as outlined in this note, with these additional summaries/recommendations: After examination of the patient and review of the clinical data, I feel that this patient needs admission to the hospital for further treatment and evaluation. Patient is a 24-year-old female with a medical history of microcytic/transfusion dependent anemia and ulcerative colitis diagnosed in 2021 currently on Skyrizi presents to [facility] emergency department on 04/12/2025 with chief complaint of fever, intractable abdominal pain, and bloody diarrhea. Patient seen at bedside. She is endorsing severe intractable abdominal pain rated 10/10 in severity. She reports she had her Skyrizi injection on Sunday. She had 8 bloody bowel movements today with severe abdominal pain and decided to come to the emergency room. Patient most likely has inflammatory bowel disease flare versus less likely infectious bloody diarrhea. We will obtain stool cultures and stool studies and cover potential GI infection with IV Zosyn for now. Case discussed with in-house gastroenterology and recommend starting IV Solu-Medrol for now. Tylenol as needed for fever. Start pain management. Urine and blood cultures taken, follow-up results when available. Lactic acidosis present and 3.1 on admission. Most likely type a secondary to IBD flare. Continue fluids and repeat level. Minimal hyperkalemia present and will monitor for now with IV fluids. Patient updated on the plan and in agreement. All questions answered to satisfaction. Please see residents note for additional details and management. Dr. Aleida MD
[2025-04-12] MEDS: MORPHINE SULF INJ 4 MG/ML VIAL 2 MG IVP (17:03)
[2025-04-12] MEDS: METOCLOPRAMIDE INJ 5 MG/ML VIAL 2 ML 10 MG IVP (17:09)
--- NOTE | 2025-04-12 17:19 | PC.NURSE ---
md notified that patient was experiencing chest pain shortly after morphine administration,
[2025-04-12] MEDS: RINGERS LACTATED 1000 ML 1,000 ML 100 ML IV ×2 (17:41→23:21)
[2025-04-12 18:14] LABS: C-Reactive Protein 10.6 mg/dL (0.0-0.9)
[2025-04-12 18:45] LABS: Lactic Acid, 3 HR 1.4 mMol/L (0.4-2.0)
[2025-04-13] VITALS (7 sets, daily range): BP systolic 90–134; BP diastolic 58–93; PULSE 71–115; RESP 15–98; TEMP 36.1–36.3; O2SAT 96–100
--- NOTE | 2025-04-13 01:01 | PRELIM_ITS ---
Radiograph of the chest (single view). April 12, 2025 1120 hours Clinical history: Sepsis No prior study is available for comparison. Findings: The heart, mediastinum and pulmonary yuly are unremarkable. The lungs are clear. There is no pleural effusion. The bony thorax is unremarkable. Impression: No acute cardiopulmonary process. Report Electronically Signed By: Jun Romero 04/13/2025 1:01:19 AM [EST]
[2025-04-13] MEDS: PIPER/TAZO 3.375 GM PREMIX 3.375 GM/50 ML BAG IV ×3 (05:15→21:34)
[2025-04-13 05:45] LABS: Basophils # (Auto) 0.0 Thou/mm3 (0.0-0.2); Basophils % (Auto) 0 % (0-2.5); Eosinophils # (Auto) 0.0 Thou/mm3 (0.0-0.5); Eosinophils % (Auto) 0 % (0-10); Hematocrit 28.9 % (36.0-46.0); Immature Granulocytes Auto 0.02 Thou/mm3 (0.00-0.00); Lymphocytes # (Auto) 0.5 Thou/mm3 (1.0-4.8); Lymphocytes % (Auto) 11 % (10-50); Mean Corpuscular HGB Conc 28.7 g/dl (31.0-37.0); Mean Corpuscular Hemoglobin 20.5 pg (25.0-35.0); Mean Corpuscular Volume 71 fL (80-100); Monocytes # (Auto) 0.3 Thou/mm3 (0.0-0.8); Monocytes % (Auto) 7 % (0-12); Neutrophils # (Auto) 4.2 Thou/mm3 (1.8-7.7); Neutrophils % (Auto) 82 % (37-80); Nucleated Red Blood Cell # 0.00 Thou/mm3 (0.00-0.00); Nucleated Red Blood Cell % 0 /100 WBC (0); Platelet Count 558 Thou/mm3 (140-440); RDW Standard Deviation 60.5 fL (36.4-46.3); Red Blood Count 4.05 Miln/mm3 (4.00-5.20); White Blood Count 5.1 Thou/mm3 (3.6-11.0)
[2025-04-13 05:48] LABS: Hemoglobin 8.3 g/dL (12.0-16.0)
[2025-04-13 06:24] LABS: Alanine Aminotransferase < 7 U/L (10-49); Albumin, Serum 2.3 gm/dL (3.5-5.0); Albumin/Globulin Ratio 0.9 (1.2-2.2); Alkaline Phosphatase 94 U/L (46-116); Anion Gap 9 (7-16); Aspartate Amino Transferase 12 U/L (0-34); BUN/Creatinine Ratio 7 Ratio (12-20); Bilirubin,Total 1.1 mg/dL (0.3-1.2); Blood Urea Nitrogen 5 mg/dL (9-23); Calcium 8.0 mg/dL (8.3-10.6); Calcium (Corrected) 9.4 mg/dL (8.5-10.1); Carbon Dioxide 25.2 mMol/L (20.0-31.0); Chloride 106 mMol/L (98-107); Creatinine (Component) 0.7 mg/dL (0.6-1.3); Estimated Creatinine Clearance 150.2 mL/min (>60); Globulin 2.7 gm/dL (2.3-3.5); Glucose 102 mg/dL (74-106); Magnesium 2.0 mg/dL (1.6-2.6); Osmolality,Calculated 276 (275-295); Phosphorous 5.1 mg/dL (2.4-5.1); Potassium 4.3 mMol/L (3.4-5.1); Sodium 140 mMol/L (136-145); Thyroid Stimulating Hormone 1.51 uIU/mL (0.55-4.78); Total Protein 5.0 gm/dL (5.7-8.2); eGFR > 60 See Note
--- NOTE | 2025-04-13 09:57 | PC.SS ---
Patient Martha Garcia is a 24 Year old female admitted for Ulcerative Colitis Flare. SS met with patient at bedside to discuss discharge plan and verify demographic information. Patient reports she lives at home with her and children. Patient reports her , Sae Hercules is her surrogate decision maker, . Patient reports she does not utilize any source of DME to assist with ambulation. PCP is [facility]. Pharmacy choice is [facility]. At time of discharge patient will return back home, will provide transportation. Discharge plan: Home Next of kin: Sae Hercules
[2025-04-13 12:39] LABS: Clostridium Difficile PCR Negative (Negative)
[2025-04-13] MEDS: RINGERS LACTATED 1000 ML 1,000 ML 100 ML IV (13:08)
--- NOTE | 2025-04-13 14:45 | ESCONSULT_ITS ---
HPI Data of Consult Requesting Physician: Benji Shin MD Admitting Provider: Benji Shin MD Attending Provider: Benji Shin MD Primary Care Provider: Physician No Primary/Family Consult Narrative Reason for consult: Possible UC flare up History of present illness: 24-year-old female with ulcerative colitis (diagnosed 2021), previously managed with Skyrizi infusions and transitioned to Skyrizi injection for the first time on 04/07/25. Shortly afterward she developed worsening left-sided abdominal pain radiating to the flank and shoulder, followed by >10 bloody bowel movements daily, nausea/vomiting, and fevers up to 102.2?F. She initially presented to the ED on 04/11/25, received 2 units PRBC for symptomatic anemia, and was discharged. She returned on 04/12/25 with worsening bloody diarrhea, abdominal pain, and fever, and was admitted for possible UC flare versus infectious colitis. She has a history of multiple prior therapies: mesalamine, prednisone, vedolizumab (limited response), and infliximab (anaphylaxis with wheezing and facial swelling). Her last colonoscopy was November 2024 in [place], which showed active UC. No recent travel, sick contacts, or antibiotic exposure (other than empiric Zosyn in the ED). Patient has poor outpatient GI f/u. Stool studies: * C. diff PCR: Negative * Bacterial PCRs (Shiga toxin, Salmonella, Shigella, Campylobacter, E. coli): P ending * Calprotectin: Pending Imaging: * CT A/P (04/12/25): Mild nonspecific colitis pattern cc:: cc: Benji Shin MD Exam Vital Signs Temp Pulse Resp BP Pulse Ox O2 Del Method O2 Flow Rate 97.0 F 85 17 134/93 H 99 Room Air 96 04/13/25 12:00 04/13/25 12:00 04/13/25 12:00 04/13/25 12:04/13/25 12:04/13/25 08:04/12/25 18:47 Narrative Exam General Appearance: Pt in mild acute distress, tearful due to pain HEENT: NC/AT, no scleral icterus, no conjunctival pallor, MMM Lungs: CTAB, no wheezes or crackles appreciated CVS: RRR, S1/S2 heard, no murmurs or rubs appreciated ABD: Soft, tender to touch to LUQ, non-distended, BS + in all 4 quadrants EXT: no deformity/edema/lesions/cyanosis/clubbing, radial pulses 2+ BL, DP pulses 2 + BL SKIN: Skin exam normal without any rashes. Neuro: A&O x 3. No gross neurological deficits. Motor and sensory grossly intact in B/L UL and LL. Psych: Appropriate mood and affect Results Labs 04/13/25 15:24 04/13/25 04:56 Labs: Short CBC 04/13/25 Range/Units 04:56 WBC 5.1 (3.6-11.0) Thou/mm3 Hgb 8.3 L (12.0-16.0) g/dL Hct 28.9 L (36.0-46.0) % Plt Count 558 H D (140-440) Thou/mm3 BMP 04/13/25 04:56 Sodium 140 Potassium 4.3 D Chloride 106 Carbon Dioxide 25.2 BUN 5 L Creatinine 0.7 Glucose 102 Calcium 8.0 L Liver Function 04/13/25 Range/Units 04:56 Total Bilirubin 1.1 (0.3-1.2) mg/dL AST 12 (0-34) U/L ALT < 7 L (10-49) U/L Alkaline Phosphatase 94 (46-116) U/L Albumin 2.3 L D (3.5-5.0) gm/dL Quality Measures Quality Measures VTE prophylaxis Medications Home Medications and Allergies Allergies Allergy/AdvReac Type Severity Reaction Status Date / Time infliximab-dyyb Allergy Severe Difficulty Verified 04/12/25 10:24 Breathing Visit Medications Acetaminophen (Acetaminophen 325 Mg Tablet) 650 mg PO Q6HR PRN PRN Reason: Fever >100.4 or pain 1-3 Stop: 05/12/25 18:41 Hydrocodone Bitart/Acetaminophen (Hydrocodone/Apap 10/325 Tab) 1 tab PO Q4H PRN PRN Reason: PAIN SCALE 4-6 (Moderate Stop: 04/17/25 15:42 Lactated Ringer's (Lactated Ringers) 1,000 mls @ 100 mls/hr IV .Q10H RENATO Stop: 04/13/25 23:36 Last Admin: 04/13/25 13:08 Dose: 100 mls/hr Piperacillin/Tazobactam/Dextrose (Zosyn) 3.375 gm in 50 mls @ 12.5 mls/hr IV Q8HR RENATO Stop: 04/19/25 21:59 Last Admin: 04/13/25 13:06 Dose: 12.5 mls/hr Methylprednisolone Sodium Succinate (Methylprednisolone Sod Succ 40 Mg/Ml Vial) 40 mg IVP BID RENATO Stop: 04/19/25 20:59 Last Admin: 04/13/25 08:52 Dose: 40 mg Metoclopramide HCl (Metoclopramide Inj 5 Mg/Ml Vial 2 Ml) 10 mg IVP Q6H PRN; Protocol PRN Reason: NAUSEA OR VOMITING Stop: 05/12/25 15:42 Last Admin: 04/12/25 17:09 Dose: 10 mg Morphine Sulfate (Morphine Sulf Inj 4 Mg/Ml Vial) 2 mg IVP Q4HR PRN PRN Reason: PAIN SCALE 7-10 (Severe Stop: 04/17/25 15:42 Pantoprazole Sodium (Pantoprazole Inj 40 Mg Vial) 40 mg IVP Q12HR RENATO Stop: 05/12/25 20:59 Last Admin: 04/13/25 08:52 Dose: 40 mg Discontinued Medications Acetaminophen (Acetaminophen 325 Mg Tablet) 650 mg PO X1 ONE Stop: 04/12/25 11:50 Last Admin: 04/12/25 11:57 Dose: 650 mg Piperacillin/Tazobactam/Dextrose (Zosyn) 3.375 gm in 50 mls @ 100 mls/hr IV X1 ONE Stop: 04/12/25 12:40 Last Infusion: 04/12/25 14:08 Dose: Infused Lactated Ringer's (Lactated Ringers) 1,000 mls @ 999 mls/hr IV .Q1H1M ONE Stop: 04/12/25 14:00 Last Infusion: 04/12/25 17:32 Dose: Infused Lactated Ringer's (Lactated Ringers) 1,000 mls @ 999 mls/hr IV .Q1H1M ONE Stop: 04/12/25 14:01 Last Infusion: 04/12/25 17:48 Dose: Infused Lactated Ringer's (Lactated Ringers) 1,000 mls @ 100 mls/hr IV .Q10H [facility] Stop: 05/12/25 15:44 Last Admin: 04/12/25 18:23 Dose: Not Given Morphine Sulfate (Morphine Sulf Inj 4 Mg/Ml Vial) 2 mg IVP X1 ONE Stop: 04/12/25 15:42 Last Admin: 04/12/25 17:03 Dose: 2 mg Assessment & Plan Plan 24-year-old female with ulcerative colitis transitioned from Skyrizi infusion to injection on 04/07/25, now presenting with bloody diarrhea, abdominal pain, fever, and anemia. C. diff negative; stool bacterial PCRs pending. Clinical picture consistent with severe UC flare, though infectious colitis must still be excluded. Patient has had fragmented care and suboptimal treatment trials, with medical therapy not yet fully optimized. Future surgical options remain on the table if medical management fails, but current priority is optimizing pharmacologic therapy. #Severe ulcerative colitis flare #Possible infectious colitis #Acute on chronic iron deficiency anemia #Hypoalbuminemia #Continuity of care issues, fragmented prior management; plan to consolidate follow-up within current GI clinic. Plan: * Continue IV Solu-Medrol 40 mg BID. * Continue IV Zosyn while stool PCRs pending; de-escalate if infectious workup negative. * Start Azathioprine 50 mg daily, titrate up to 200 mg as tolerated * Start Mesalamine 4.8 g daily (1.2 g ?4). * Folic acid supplementation. * Start Prep with GoLYTELY; scope once stool PCRs return and infection excluded. * Monitor daily CBC, CRP; transfuse PRBC if Hgb <7 or symptomatic; trend electrolytes. * Clear liquid diet, IV fluids, PPI, pain and nausea control. * Disposition/long-term: Centralize follow-up at our clinic for continued care. Will involve Dr. Espana as consulting support when needed. Outpatient evaluation of biological/advanced therapies already depending on inpatient course. ----- Plan discussed with attending physician Dr. Jovi Hagan MD PGY-1 Internal Medicine Attending Provider Attestation/Addendum Patient examined and evaluated laboratory data reviewed Patient has acute exacerbation of the underlying inflammatory bowel disease versus the possibility of infectious enterocolitis as a core component Patient has not been adequately treated for underlying inflammatory bowel disease Will recommend the following Clear liquid diet GoLytely prep Colonoscopy with biopsies to assess the disease and the severity of the disease Start mesalamine 4.8 g a day Azathioprine 50 mg p.o. daily Folic acid 1 mg p.o. daily Solu-Medrol 40 mg IV push twice daily ANCA antibody CRP Will follow the patient and recommend upon discharge the patient should be followed in our [facility] clinic Thank you for the opportunity to participate in the care of this patient
[2025-04-13 15:39] LABS: Hematocrit 29.3 % (36.0-46.0)
[2025-04-13 15:40] LABS: Hemoglobin 8.6 g/dL (12.0-16.0)
[2025-04-13 16:32] LABS: Campylobacter PCR Negative (Negative); Salmonella Species PCR Negative (Negative); Shiga Toxin PCR Negative (Negative); Shigella Species PCR Negative (Negative)
[2025-04-13] MEDS: NA SU/NAHCO3/KC/PEG (Golytely) 4,000 ML BTL 4000 ML PO (16:42)
[2025-04-13] MEDS: FOLIC ACID 1 MG TABLET PO (16:42)
[2025-04-13 17:37] LABS: C-Reactive Protein 13.4 mg/dL (0.0-0.9)
[2025-04-13] MEDS: MESALAMINE 400 MG CAPSULE.DR 1200 MG PO (17:50)
--- NOTE | 2025-04-13 18:01 | ESPR_ITS ---
Documentation for date of: 04/13/25 Subjective Subjective Interval history: Patient examined at bedside. Vitals are stable, labs reviewed. Hemoglobin downtrending 8.3, MCV 71. Other electrolytes normal limits. She complains of diffuse abdominal pain and decreased diarrhea with most recent in the morning that was bright red in color. She has not seen a GI specialiast for UC since January of this year. There has been difficultly in contacting her specialist. She continues to receive her Skyrizi injections. Her previous regimen for UC includin mesalamine and azathioprine were discontinued when starting the Skyrizi. Patient is not sure why this was stopped. Per GI recommendations, resume azathioprine starting at 50 mg daily and uptitrate to 200 mg daily. Also resume mesalamine for total of 4.8 g daily. Currently on GoLytely prep for colonoscopy. Her last colonoscopy was done and November 2024. Continue IV Solu-Medrol 40 mg twice daily and IV Zosyn for acute flare. Stool studies are pending. Exam Vital Signs Temp Pulse Resp BP Pulse Ox O2 Del Method O2 Flow Rate 97.4 F 71 18 105/67 98 Room Air 96 04/13/25 16:00 04/13/25 16:04/13/25 16:04/13/25 16:04/13/25 16:04/13/25 16:04/12/25 18:47 Narrative Exam General Appearance: Pt in mild acute distress, cooperative, young female, heavy set HEENT: NC/AT, no scleral icterus, no conjunctival pallor, MMM Lungs: CTAB, no wheezes or crackles appreciated CVS: RRR, S1/S2 heard, no murmurs or rubs appreciated ABD: Soft, tender to touch to LLQ, non-distended, BS + in all 4 quadrants EXT: no deformity/edema/lesions/cyanosis/clubbing, radial pulses 2+ BL, DP pulses 2 + BL SKIN: Skin exam normal without any rashes. Neuro: A&O x 3. No gross neurological deficits. Motor and sensory grossly intact in B/L UL and LL. Psych: Appropriate mood and affect Objective Labs 04/13/25 15:24 04/13/25 04:56 Labs: Laboratory Results - last 24 hr 04/12/25 04/12/25 04/13/25 11:41 17:51 01:10 WBC RBC Hgb Hct MCV MCH MCHC RDW Std Deviation Plt Count Neut % (Auto) Lymph % (Auto) [place] % (Auto) Eos % (Auto) Baso % (Auto) Neut # (Auto) Lymph # (Auto) [place] # (Auto) Eos # (Auto) Baso # (Auto) Immature Gran # (Auto) Absolute Nucleated RBC Immature Gran % Nucleated RBC % Sodium Potassium Chloride Carbon Dioxide Anion Gap BUN Creatinine Estim Creat Clear Calc eGFR BUN/Creatinine Ratio Glucose Calculated Osmolality Lactic Acid 1.4 Calcium Corrected Calcium Phosphorus Magnesium Total Bilirubin AST ALT Alkaline Phosphatase C-Reactive Prot, Quant 10.6 H Total Protein Albumin Globulin Albumin/Globulin Ratio TSH Stool Campylobacter PCR Negative Stl C. diff Tox B Gene Negative Stl E.coli Shiga Tox PCR Negative Stool Salmonella PCR Negative Stool Shigella PCR Negative 04/13/25 04/13/25 04:56 15:24 WBC 5.1 RBC 4.05 Hgb 8.3 L 8.6 L Hct 28.9 L 29.3 L MCV 71 L MCH 20.5 L MCHC 28.7 L RDW Std Deviation 60.5 H Plt Count 558 H D Neut % (Auto) 82 H Lymph % (Auto) 11 [place] % (Auto) 7 Eos % (Auto) 0 Baso % (Auto) 0 Neut # (Auto) 4.2 Lymph # (Auto) 0.5 L [place] # (Auto) 0.3 Eos # (Auto) 0.0 Baso # (Auto) 0.0 Immature Gran # (Auto) 0.02 H Absolute Nucleated RBC 0.00 Immature Gran % 0 Nucleated RBC % 0 Sodium 140 Potassium 4.3 D Chloride 106 Carbon Dioxide 25.2 Anion Gap 9 BUN 5 L Creatinine 0.7 Estim Creat Clear Calc 150.2 eGFR > 60 BUN/Creatinine Ratio 7 L Glucose 102 Calculated Osmolality 276 Lactic Acid Calcium 8.0 L Corrected Calcium 9.4 Phosphorus 5.1 Magnesium 2.0 Total Bilirubin 1.1 AST 12 ALT < 7 L Alkaline Phosphatase 94 C-Reactive Prot, Quant 13.4 H Total Protein 5.0 L Albumin 2.3 L D Globulin 2.7 Albumin/Globulin Ratio 0.9 L TSH 1.51 Stool Campylobacter PCR Stl C. diff Tox B Gene Stl E.coli Shiga Tox PCR Stool Salmonella PCR Stool Shigella PCR Quality Measures Quality Measures VTE prophylaxis Assessment & Plan Assessment Current Active Medications: Generic Name Dose Route Start Last Admin Trade Name Fredyq PRN Reason Stop Dose Admin Acetaminophen 650 mg 04/12/25 18:42 Acetaminophen 325 Mg Tablet PO 05/12/25 18:41 Q6HR PRN Fever >100.4 or pain 1-3 Hydrocodone Bitart/Acetaminophen 1 tab 04/12/25 15:43 Hydrocodone/Apap 10/325 Tab PO 04/17/25 15:42 Q4H PRN PAIN SCALE 4-6 (Moderate Azathioprine 50 mg 04/13/25 17:30 04/13/25 17:50 Azathioprine 50 Mg Tablet PO 05/13/25 17:29 50 mg QDAY RENATO Administration Folic Acid 1 mg 04/13/25 16:30 04/13/25 16:42 Folic Acid 1 Mg Tablet PO 05/13/25 16:29 1 mg QDAY RENATO Administration Lactated Ringer's 1,000 mls @ 100 mls/hr 04/12/25 17:37 04/13/25 13:08 Lactated Ringers IV 04/13/25 23:36 100 mls/hr .Q10H RENATO Administration Piperacillin/Tazobactam/Dextrose 3.375 gm in 50 mls @ 12.5 mls/hr 04/12/25 22:00 04/13/25 13:06 Zosyn IV 04/19/25 21:59 12.5 mls/hr Q8HR RENATO Administration Mesalamine 1,200 mg 04/13/25 17:30 04/13/25 17:50 Mesalamine 400 Mg Capsule.Dr PO 05/13/25 17:29 1,200 mg QID RENATO Administration Methylprednisolone Sodium Succinate 40 mg 04/12/25 21:00 04/13/25 08:52 Methylprednisolone Sod Succ 40 Mg/Ml Vial IVP 04/19/25 20:59 40 mg BID RENATO Administration Metoclopramide HCl 10 mg 04/12/25 15:43 04/12/25 17:09 Metoclopramide Inj 5 Mg/Ml Vial 2 Ml IVP 05/12/25 15:42 10 mg Q6H PRN Administration NAUSEA OR VOMITING Protocol Morphine Sulfate 2 mg 04/12/25 15:43 Morphine Sulf Inj 4 Mg/Ml Vial IVP 04/17/25 15:42 Q4HR PRN PAIN SCALE 7-10 (Severe Pantoprazole Sodium 40 mg 04/12/25 21:00 04/13/25 08:52 Pantoprazole Inj 40 Mg Vial IVP 05/12/25 20:59 40 mg Q12HR RENATO Administration Plan Ms. Salamanca is a 24-year-old female with past medical history significant for ulcerative colitis on Skyrizi (risankizumab-rzaa) since November 2024 who presented to the ED this morning with worsening left-sided abdominal pain, high- grade fever and bloody diarrhea and admitted to [facility] for further management of possible ulcerative colitis flare versus infectious etiology for colitis on 04/12/25. #Sepsis (resolved) 2/2 Infectious colitis vs #Ulcerative Colits flare #Intractable nausea/vomiting (resolved) #Bloody diarrhea Patient presented with a high grade fever of 102F, tachycardia of 134 with possible source confirmed on CT Abdomen/Pelvis suggesting mild nonspecific colitis. Patient received her recent Skyrizi infusion on Sunday04/07/25, and shortly after began to have lower abdominal left sided abdominal pain, and next day started having 10 episodes of bloody diarrhea. Patient later had a high grade fever and intractable n/v early this morning. Patient received sepsis bolus for 30cc/kg ~2.8L; Elevated pro-ivette. End organ damage seen with impaired liver synthesis, seen as elevated bilirubin of 1.3, baseline around 0.7. -Consulted GI, and recommended to start IV Solumedrol 40mg BID, azathioprine starting at 50 mg daily and uptitrate to 200 mg daily. Also resume mesalamine for total of 4.8 g daily. -stool studies pending -on GoLytely prep for colonoscopy -IV Zosyn Q6HR (04/13- -IV Maintenance fluids -IV pain control, nausea -Tylenol for fever #Acute on Chronic Iron deficiency anemia in the setting of blood loss Initial Hgb 9.5 and platelets 444 Patient received 2 PRBC in ED in previous ED visit, 04/11/25 Hgb stable at 9.4 ?Transfuse if Hgb less than 7 ?Will continue to monitor Health maintenance: Disposition: Patient is admitted to Med/Surg for further management of UC flare Diet: CLD GI prophylaxis: Protonix BID DVT prophylaxis: SCDs Code: Full code The patient's management plan was discussed with my attending physician MD Dina Wong, PGY2 Attending Provider Attestation/Addendum I have examined the patient, reviewed labs and imaging findings, discussed the case with the resident(s), and reviewed entered orders. I agree with the plan of care as outlined in this note, with these additional summaries/recommendations: Patient is a 24-year-old female with a medical history of microcytic/transfusion dependent anemia and ulcerative colitis diagnosed in 2021 currently on Skyrizi presents to [facility] emergency department on 04/12/2025 with chief complaint of fever, intractable abdominal pain, and bloody diarrhea. Patient seen at bedside. No acute overnight events. Today patient reports improvement in abdominal pain and bloody diarrhea. She reports her last Skyrizi injection was on Sunday. Patient most likely has inflammatory bowel disease flare versus less likely infectious bloody diarrhea. Stool studies pending and we will continue IV Zosyn to cover for potential GI infection +/- urinary tract infection. Case discussed with in-house gastroenterology and we will continue IV Solu-Medrol for now. Tylenol as needed for fever. Continue pain management. Urine and blood cultures taken, follow-up results when available. Continue IV zosyn. Lactic acidosis present with LA 3.1 on admission. Most likely type A secondary to IBD flare. Lactic acidosis now resolved. Patient updated on the plan and in agreement. All questions answered to satisfaction. Please see residents note for additional details and management. Dr. Aleida MD
--- NOTE | 2025-04-13 21:00 | PC.NURSE ---
Patient refused to take her mesalamine medication, states it did cause an upset stomach earlier when she took it. Is requesting for pentasa with granules contents instead. will refer to .
--- NOTE | 2025-04-13 22:00 | PC.NURSE ---
Patient states to temporarily hold taking her golytely at this time, will resume early in am, Dr baca updated. BM has no visible trace of blood at this time.
[2025-04-14] VITALS (17 sets, daily range): BP systolic 89–111; BP diastolic 49–77; PULSE 54–92; RESP 12–97; TEMP 35.9–37.1; O2SAT 97–100
[2025-04-14] MEDS: PIPER/TAZO 3.375 GM PREMIX 3.375 GM/50 ML BAG IV ×3 (05:44→21:40)
[2025-04-14 06:08] LABS: Basophils # (Auto) 0.0 Thou/mm3 (0.0-0.2); Basophils % (Auto) 0 % (0-2.5); Eosinophils # (Auto) 0.0 Thou/mm3 (0.0-0.5); Eosinophils % (Auto) 0 % (0-10); Hematocrit 30.3 % (36.0-46.0); Immature Granulocytes Auto 0.02 Thou/mm3 (0.00-0.00); Lymphocytes # (Auto) 1.0 Thou/mm3 (1.0-4.8); Lymphocytes % (Auto) 26 % (10-50); Mean Corpuscular HGB Conc 29.0 g/dl (31.0-37.0); Mean Corpuscular Hemoglobin 20.8 pg (25.0-35.0); Mean Corpuscular Volume 72 fL (80-100); Monocytes # (Auto) 0.5 Thou/mm3 (0.0-0.8); Monocytes % (Auto) 14 % (0-12); Neutrophils # (Auto) 2.2 Thou/mm3 (1.8-7.7); Neutrophils % (Auto) 59 % (37-80); Nucleated Red Blood Cell # 0.00 Thou/mm3 (0.00-0.00); Nucleated Red Blood Cell % 0 /100 WBC (0); Platelet Count 549 Thou/mm3 (140-440); RDW Standard Deviation 60.7 fL (36.4-46.3); Red Blood Count 4.24 Miln/mm3 (4.00-5.20); White Blood Count 3.8 Thou/mm3 (3.6-11.0)
[2025-04-14 06:10] LABS: Hemoglobin 8.8 g/dL (12.0-16.0)
[2025-04-14 06:24] LABS: Alanine Aminotransferase < 7 U/L (10-49); Albumin, Serum 2.5 gm/dL (3.5-5.0); Albumin/Globulin Ratio 0.8 (1.2-2.2); Alkaline Phosphatase 92 U/L (46-116); Anion Gap 11 (7-16); Aspartate Amino Transferase 11 U/L (0-34); BUN/Creatinine Ratio 9 Ratio (12-20); Bilirubin,Total 0.6 mg/dL (0.3-1.2); Blood Urea Nitrogen 7 mg/dL (9-23); Calcium 8.4 mg/dL (8.3-10.6); Calcium (Corrected) 9.6 mg/dL (8.5-10.1); Carbon Dioxide 26.3 mMol/L (20.0-31.0); Chloride 104 mMol/L (98-107); Creatinine (Component) 0.8 mg/dL (0.6-1.3); Estimated Creatinine Clearance 131.5 mL/min (>60); Globulin 3.1 gm/dL (2.3-3.5); Glucose 117 mg/dL (74-106); Magnesium 2.1 mg/dL (1.6-2.6); Osmolality,Calculated 280 (275-295); Phosphorous 5.3 mg/dL (2.4-5.1); Potassium 3.9 mMol/L (3.4-5.1); Sodium 141 mMol/L (136-145); Total Protein 5.6 gm/dL (5.7-8.2); eGFR > 60 See Note
[2025-04-14] MEDS: FOLIC ACID 1 MG TABLET PO (09:43)
--- NOTE | 2025-04-14 10:27 | PC.NURSE ---
Spoke with Dr. Amaya at 1027 regarding patient's noon medication Mesalamine. Patient has trouble swallowing pills, this nurse asked dr if I could put the contents of the capsule in applesauce for patient because med is delayed release. Dr Richey said it was okay.
--- NOTE | 2025-04-14 11:07 | PC.NURSE ---
Spoke with Shanda from [facility] regarding patient's status on her Golytely and to receive report. This nurse gave her report and status on her bowel movements. Patient isn't clear yet and hasn't finished one bottle of Golytely yet. Shanda stated that would like to start procedures at 1900 today, so would like pt NPO by 1800, if possible. This nurse stated that she would keep Alba up to date on her progress.
--- NOTE | 2025-04-14 12:17 | PC.NURSE ---
Spoke with Dr. Guzman at 1215 regarding medication mesalamine that patient takes at noon. Per patient she doesn't take this medication because she can't swallow pills and this particular medication causes her a stomach discomfort. Patient said she takes Pentasa at home for these reasons. This nurse explained this to Dr. Person, according to the dr she talked to pharmacy yesterday and mesalamine is the only kind the pharmacy carries. Dr instructed me to hold the medication at this time.
--- NOTE | 2025-04-14 12:28 | PC.NURSE ---
Wasted 400 mg of Mesalamine at 1225 with HOMA Romero d/t patient not being able to swallow pill and, this particular medication, giving her abdominal discomfort. I wasted in the cactus with a witness because the medication is not listed in the pyxis. Dr. Person is aware of the situation regarding the discomfort the patient c/o.
--- NOTE | 2025-04-14 13:32 | PC.NURSE ---
Spoke with Loli from [facility] at 1300 regarding patients status on drinking Golytley. Patient is a little less than half way done with the bottle but urine is still not clear. Upon examination, this nurse noted red sediment in urine. Loli stated she would put a PRN order for another Golytley if needed.
--- NOTE | 2025-04-14 15:58 | PC.SS ---
SS follow up note; Patient is on IV Steroids, pending Colonoscopy patient will discharge home when medically cleared.
--- NOTE | 2025-04-14 20:12 | ESPR_ITS ---
<Statement entered by Dina Guzman MD - 04/14/25 21:20> Note reviewed, I agree with most of its contents and agree with the patient's care as documented by Dr. Whitaker. The patient's management plan was discussed with my attending physician Dr. Walker. Dina Guzman, PGY-2 Documentation for date of: 04/14/25 Subjective Subjective Interval history: Patient examined at bedside. Vitals are stable, labs reviewed. Hemoglobin stable around 8. MCV 72. Other electrolytes normal limits. She is still having diffuse abdominal pain. She has not seen a GI specialiast for UC since January of this year. There has been difficultly in contacting her specialist. She continues to receive her Skyrizi injections. Her previous regimen for UC includin mesalamine and azathioprine were discontinued when starting the Skyrizi. Patient is not sure why this was stopped. She had previously tried infliximab but did not tolerate due to difficulty breathing. Stool studies for infectious cause of colitis were negative, fecal calprotectin still pending. Per GI recommendations, azathioprine was restarted at 50 mg daily with goal to up titrate to 200 mg daily. Also resume mesalamine for total of 4.8 g daily. Currently on GoLytely prep for colonoscopy. Her last colonoscopy was done and November 2024. Continue IV Solu-Medrol 40 mg twice daily and IV Zosyn for acute flare. Now pending colonoscopy. Exam Vital Signs Temp Pulse Resp BP Pulse Ox O2 Del Method O2 Flow Rate 97.4 F 60 17 108/70 100 Room Air 96 04/14/25 16:04/14/25 16:04/14/25 16:04/14/25 16:04/14/25 16:04/14/25 16:04/12/25 18:47 Narrative Exam General Appearance: Pt sitting up in bed, cooperative, young female, heavy set, not in acute distress. HEENT: NC/AT, no scleral icterus, no conjunctival pallor, MMM Lungs: CTAB, no wheezes or crackles appreciated CVS: RRR, S1/S2 heard, no murmurs or rubs appreciated ABD: Soft, tender to touch to LLQ, non-distended, BS + in all 4 quadrants EXT: no deformity/edema/lesions/cyanosis/clubbing, radial pulses 2+ BL, DP pulses 2 + BL SKIN: Skin exam normal without any rashes. Neuro: A&O x 3. No gross neurological deficits. Motor and sensory grossly intact in B/L UL and LL. Psych: Appropriate mood and affect Objective Labs 04/15/25 05:00 04/15/25 05:00 Labs: Laboratory Results - last 24 hr 04/14/25 05:41 WBC 3.8 RBC 4.24 Hgb 8.8 L Hct 30.3 L MCV 72 L MCH 20.8 L MCHC 29.0 L RDW Std Deviation 60.7 H Plt Count 549 H Neut % (Auto) 59 Lymph % (Auto) 26 [place] % (Auto) 14 H Eos % (Auto) 0 Baso % (Auto) 0 Neut # (Auto) 2.2 Lymph # (Auto) 1.0 [place] # (Auto) 0.5 Eos # (Auto) 0.0 Baso # (Auto) 0.0 Immature Gran # (Auto) 0.02 H Absolute Nucleated RBC 0.00 Immature Gran % 1 H Nucleated RBC % 0 Sodium 141 Potassium 3.9 Chloride 104 Carbon Dioxide 26.3 Anion Gap 11 BUN 7 L Creatinine 0.8 Estim Creat Clear Calc 131.5 eGFR > 60 BUN/Creatinine Ratio 9 L Glucose 117 H Calculated Osmolality 280 Calcium 8.4 Corrected Calcium 9.6 Phosphorus 5.3 H Magnesium 2.1 Total Bilirubin 0.6 D AST 11 ALT < 7 L Alkaline Phosphatase 92 Total Protein 5.6 L Albumin 2.5 L Globulin 3.1 Albumin/Globulin Ratio 0.8 L Quality Measures Quality Measures VTE prophylaxis Assessment & Plan Assessment Current Active Medications: Generic Name Dose Route Start Last Admin Trade Name Cameron PRN Reason Stop Dose Admin Acetaminophen 650 mg 04/12/25 18:42 Acetaminophen 325 Mg Tablet PO 05/12/25 18:41 Q6HR PRN Fever >100.4 or pain 1-3 Hydrocodone Bitart/Acetaminophen 1 tab 04/12/25 15:43 Hydrocodone/Apap 10/325 Tab PO 04/17/25 15:42 Q4H PRN PAIN SCALE 4-6 (Moderate Azathioprine 50 mg 04/13/25 17:30 04/14/25 10:14 Azathioprine 50 Mg Tablet PO 05/13/25 17:29 50 mg QDAY RENATO Administration Folic Acid 1 mg 04/13/25 16:30 04/14/25 09:43 Folic Acid 1 Mg Tablet PO 05/13/25 16:29 1 mg QDAY RENATO Administration Piperacillin/Tazobactam/Dextrose 3.375 gm in 50 mls @ 12.5 mls/hr 04/12/25 22:00 04/14/25 14:56 Zosyn IV 04/19/25 21:59 12.5 mls/hr Q8HR RENATO Administration Mesalamine 1,200 mg 04/13/25 17:30 04/14/25 17:23 Mesalamine 400 Mg Capsule.Dr PO 05/13/25 17:29 Not Given QID RENATO Methylprednisolone Sodium Succinate 40 mg 04/12/25 21:00 04/14/25 09:43 Methylprednisolone Sod Succ 40 Mg/Ml Vial IVP 04/19/25 20:59 40 mg BID RENATO Administration Metoclopramide HCl 10 mg 04/12/25 15:43 04/12/25 17:09 Metoclopramide Inj 5 Mg/Ml Vial 2 Ml IVP 05/12/25 15:42 10 mg Q6H PRN Administration NAUSEA OR VOMITING Protocol Morphine Sulfate 2 mg 04/12/25 15:43 Morphine Sulf Inj 4 Mg/Ml Vial IVP 04/17/25 15:42 Q4HR PRN PAIN SCALE 7-10 (Severe Pantoprazole Sodium 40 mg 04/12/25 21:00 04/14/25 09:45 Pantoprazole Inj 40 Mg Vial IVP 05/12/25 20:59 40 mg Q12HR RENATO Administration Plan Ms. Salamanca is a 24-year-old female with past medical history significant for ulcerative colitis on Skyrizi (risankizumab-rzaa) since November 2024 who presented to the ED this morning with worsening left-sided abdominal pain, high- grade fever and bloody diarrhea and admitted to [facility] for further management of possible ulcerative colitis flare versus infectious etiology for colitis on 04/12/25. #Sepsis (resolved) 2/2 Infectious colitis vs #Ulcerative Colits flare #Intractable nausea/vomiting (resolved) #Bloody diarrhea Patient presented with a high grade fever of 102F, tachycardia of 134 with possible source confirmed on CT Abdomen/Pelvis suggesting mild nonspecific colitis. Patient received her recent Skyrizi infusion on Sunday04/07/25, and shortly after began to have lower abdominal left sided abdominal pain, and next day started having 10 episodes of bloody diarrhea. Patient later had a high grade fever and intractable n/v early this morning. Patient received sepsis bolus for 30cc/kg ~2.8L; Elevated pro-ivette. End organ damage seen with impaired liver synthesis, seen as elevated bilirubin of 1.3, baseline around 0.7. Stool studies notable for elevated calprotectin >8000 and 3+ WBCs, negative infectious workup. At this point, acute UC colitis flair is most likely. -Consulted GI, and recommended to start IV Solumedrol 40mg BID, azathioprine starting at 50 mg daily and uptitrate to 200 mg daily. Also resume mesalamine for total of 4.8 g daily. -stool studies pending -on GoLytely prep for colonoscopy -IV Zosyn Q6HR (04/13- -IV Maintenance fluids -IV pain control, nausea -Tylenol for fever #Acute on Chronic Iron deficiency anemia in the setting of blood loss Initial Hgb 9.5 and platelets 444 Patient received 2 PRBC in ED in previous ED visit, 04/11/25 Hgb stable at around 8. ?Transfuse if Hgb less than 7 ?Will continue to monitor Health maintenance: Disposition: Patient is admitted to Med/Surg for further management of UC flare Diet: CLD GI prophylaxis: Protonix BID DVT prophylaxis: SCDs Code: Full code The patient's management plan was discussed with my attending physician DO Micah Batista DO PGY-1 ([facility]) Attending Provider Attestation/Addendum I have discussed and was present for the essential components of the history, physical examination, diagnosis, and treatment plan with the resident. I agree with the patient's care as documented by the resident and amended herein by me. Aldo Walker DO. Although this document has been carefully reviewed, there may still be some phonetic and other typographical errors. These errors are purely grammatical due to imperfections in the software program and should not be construed in any way to compromise the substance of the patient's medical care during this visit.
--- NOTE | 2025-04-14 20:50 | SUR.PHASEI ---
Arrived to [facility] [place] [facility] via [facility]. Report received from Lisa LUTHER. Resting with eyes closed but responds appropriately to name. No c/o pain or discomfort. No s/o distress.
--- NOTE | 2025-04-14 21:22 | SUR.PHASEI ---
Transferred to room 358 via gurney by Martha LUTHER. No c/o pain or discomfort. No s/o distress.
[2025-04-15] VITALS (7 sets, daily range): BP systolic 92–111; BP diastolic 53–65; PULSE 53–73; RESP 16–97; TEMP 36.1–36.4; O2SAT 95–100; BMI 30.2
[2025-04-15] MEDS: PIPER/TAZO 3.375 GM PREMIX 3.375 GM/50 ML BAG IV (05:07)
[2025-04-15 05:59] LABS: Basophils # (Auto) 0.0 Thou/mm3 (0.0-0.2); Basophils % (Auto) 0 % (0-2.5); Eosinophils # (Auto) 0.0 Thou/mm3 (0.0-0.5); Eosinophils % (Auto) 0 % (0-10); Hematocrit 27.8 % (36.0-46.0); Immature Granulocytes Auto 0.02 Thou/mm3 (0.00-0.00); Lymphocytes # (Auto) 1.0 Thou/mm3 (1.0-4.8); Lymphocytes % (Auto) 17 % (10-50); Mean Corpuscular HGB Conc 28.4 g/dl (31.0-37.0); Mean Corpuscular Hemoglobin 20.6 pg (25.0-35.0); Mean Corpuscular Volume 73 fL (80-100); Monocytes # (Auto) 0.2 Thou/mm3 (0.0-0.8); Monocytes % (Auto) 4 % (0-12); Neutrophils # (Auto) 4.6 Thou/mm3 (1.8-7.7); Neutrophils % (Auto) 79 % (37-80); Nucleated Red Blood Cell # 0.00 Thou/mm3 (0.00-0.00); Nucleated Red Blood Cell % 0 /100 WBC (0); Platelet Count 421 Thou/mm3 (140-440); RDW Standard Deviation 61.5 fL (36.4-46.3); Red Blood Count 3.83 Miln/mm3 (4.00-5.20); White Blood Count 5.8 Thou/mm3 (3.6-11.0)
[2025-04-15 06:02] LABS: Hemoglobin 7.9 g/dL (12.0-16.0)
[2025-04-15 06:31] LABS: Alanine Aminotransferase < 7 U/L (10-49); Albumin, Serum 2.6 gm/dL (3.5-5.0); Albumin/Globulin Ratio 1.0 (1.2-2.2); Alkaline Phosphatase 77 U/L (46-116); Anion Gap 8 (7-16); Aspartate Amino Transferase 12 U/L (0-34); BUN/Creatinine Ratio 8 Ratio (12-20); Bilirubin,Total 0.5 mg/dL (0.3-1.2); Blood Urea Nitrogen 6 mg/dL (9-23); Calcium 8.3 mg/dL (8.3-10.6); Calcium (Corrected) 9.4 mg/dL (8.5-10.1); Carbon Dioxide 30.1 mMol/L (20.0-31.0); Chloride 104 mMol/L (98-107); Creatinine (Component) 0.8 mg/dL (0.6-1.3); Estimated Creatinine Clearance 131.5 mL/min (>60); Globulin 2.7 gm/dL (2.3-3.5); Glucose 115 mg/dL (74-106); Magnesium 2.4 mg/dL (1.6-2.6); Osmolality,Calculated 281 (275-295); Phosphorous 5.3 mg/dL (2.4-5.1); Potassium 4.2 mMol/L (3.4-5.1); Sodium 142 mMol/L (136-145); Total Protein 5.3 gm/dL (5.7-8.2); eGFR > 60 See Note
[2025-04-15] MEDS: FOLIC ACID 1 MG TABLET PO (08:38)
--- NOTE | 2025-04-15 15:05 | PC.SS ---
SS follow up note; Surgery consult pending. Patient will discharge home when medically cleared.
--- NOTE | 2025-04-15 20:27 | ESPR_ITS ---
Documentation for date of: 04/15/25 Subjective Subjective Interval history: Patient examined at bedside, NAOE. Patient's abdominal pain is improved today, still having clear bowel movements from golytely prep. Colonoscopy was done and demonstrated diffuse colitis throughout the colon, sparing the terminal ileum. GI recommended colorectal surgery consult for total colectomy and Kochs pouch. Dr. Quintana consulted, agreed to see the patient tomorrow. Exam Vital Signs Temp Pulse Resp BP Pulse Ox O2 Del Method O2 Flow Rate 97.6 F 71 18 98/63 99 Room Air 3 04/15/25 16:04/15/25 16:04/15/25 16:04/15/25 16:04/15/25 16:04/15/25 16:04/14/25 20:45 Narrative Exam General Appearance: Pt sitting up in bed, cooperative, young female, not in acute distress. HEENT: NC/AT, no scleral icterus, no conjunctival pallor, MMM Lungs: No strider, tachypnea, or labored speech. CVS: RRR, extremities warm and well perfused. ABD: Soft, nontender, non distended. EXT: no deformity/edema/lesions/cyanosis/clubbing, radial pulses 2+ BL, DP pulses 2 + BL SKIN: Skin exam normal without any rashes. Neuro: A&O x 3. No gross neurological deficits. Motor and sensory grossly intact in B/L UL and LL. Psych: Appropriate mood and affect Objective Labs 04/16/25 09:21 04/16/25 09:21 Labs: Laboratory Results - last 24 hr 04/15/25 05:00 WBC 5.8 D RBC 3.83 L Hgb 7.9 L Hct 27.8 L MCV 73 L MCH 20.6 L MCHC 28.4 L RDW Std Deviation 61.5 H Plt Count 421 D Neut % (Auto) 79 Lymph % (Auto) 17 [place] % (Auto) 4 Eos % (Auto) 0 Baso % (Auto) 0 Neut # (Auto) 4.6 Lymph # (Auto) 1.0 [place] # (Auto) 0.2 Eos # (Auto) 0.0 Baso # (Auto) 0.0 Immature Gran # (Auto) 0.02 H Absolute Nucleated RBC 0.00 Immature Gran % 0 Nucleated RBC % 0 Sodium 142 Potassium 4.2 Chloride 104 Carbon Dioxide 30.1 Anion Gap 8 BUN 6 L Creatinine 0.8 Estim Creat Clear Calc 131.5 eGFR > 60 BUN/Creatinine Ratio 8 L Glucose 115 H Calculated Osmolality 281 Calcium 8.3 Corrected Calcium 9.4 Phosphorus 5.3 H Magnesium 2.4 Total Bilirubin 0.5 AST 12 ALT < 7 L Alkaline Phosphatase 77 Total Protein 5.3 L Albumin 2.6 L Globulin 2.7 Albumin/Globulin Ratio 1.0 L Quality Measures Quality Measures VTE prophylaxis Assessment & Plan Assessment Current Active Medications: Generic Name Dose Route Start Last Admin Trade Name Freq PRN Reason Stop Dose Admin Acetaminophen 650 mg 04/12/25 18:42 Acetaminophen 325 Mg Tablet PO 05/12/25 18:41 Q6HR PRN Fever >100.4 or pain 1-3 Hydrocodone Bitart/Acetaminophen 1 tab 04/12/25 15:43 Hydrocodone/Apap 10325 Tab PO 04/17/25 15:42 Q4H PRN PAIN SCALE 4-6 (Moderate Azathioprine 50 mg 04/13/25 17:30 04/15/25 08:38 Azathioprine 50 Mg Tablet PO 05/13/25 17:29 50 mg QDAY RENATO Administration Folic Acid 1 mg 04/13/25 16:30 04/15/25 08:38 Folic Acid 1 Mg Tablet PO 05/13/25 16:29 1 mg QDAY RENATO Administration Mesalamine 1,200 mg 04/13/25 17:30 04/15/25 17:00 Mesalamine 400 Mg Capsule. PO 05/13/25 17:29 Not Given QID RENATO Methylprednisolone Sodium Succinate 40 mg 04/12/25 21:00 04/15/25 08:37 Methylprednisolone Sod Succ 40 Mg/Ml Vial IVP 04/19/25 20:59 40 mg BID RENATO Administration Metoclopramide HCl 10 mg 04/12/25 15:43 04/12/25 17:09 Metoclopramide Inj 5 Mg/Ml Vial 2 Ml IVP 05/12/25 15:42 10 mg Q6H PRN Administration NAUSEA OR VOMITING Protocol Morphine Sulfate 2 mg 04/12/25 15:43 Morphine Sulf Inj 4 Mg/Ml Vial IVP 04/17/25 15:42 Q4HR PRN PAIN SCALE 7-10 (Severe Pantoprazole Sodium 40 mg 04/12/25 21:00 04/15/25 08:38 Pantoprazole Inj 40 Mg Vial IVP 05/12/25 20:59 40 mg Q12HR RENATO Administration Plan Ms. Salamanca is a 24-year-old female with past medical history significant for ulcerative colitis on Skyrizi (risankizumab-rzaa) since November 2024 who presented to the ED this morning with worsening left-sided abdominal pain, high- grade fever and bloody diarrhea and admitted to [facility] for further management of possible ulcerative colitis flare versus infectious etiology for colitis on 04/12/25. Colonoscopy on 04/14 demonstrated diffuse colitis throughout the colon, sparing the terminal ileum. GI recommended colorectal surgery consult for total colectomy and Kochs pouch. Dr. Quintana consulted, agreed to see the patient tomorrow. #Sepsis (resolved) 2/2 Infectious colitis vs #Ulcerative Colits flare #Intractable nausea/vomiting (resolved) #Bloody diarrhea Patient presented with a high grade fever of 102F, tachycardia of 134 with possible source confirmed on CT Abdomen/Pelvis suggesting mild nonspecific colitis. Patient received her recent Skyrizi infusion on Sunday04/07/25, and shortly after began to have lower abdominal left sided abdominal pain, and next day started having 10 episodes of bloody diarrhea. Patient later had a high grade fever and intractable n/v early this morning. Patient received sepsis bolus for 30cc/kg ~2.8L; Elevated pro-ivette. End organ damage seen with impaired liver synthesis, seen as elevated bilirubin of 1.3, baseline around 0.7. Stool studies notable for elevated calprotectin >8000 and 3+ WBCs, negative infectious workup. At this point, acute UC colitis flair is most likely. Consulted GI, and recommended to start IV Solumedrol 40mg BID, azathioprine starting at 50 mg daily and uptitrate to 200 mg daily. Also resume mesalamine for total of 4.8 g daily. Colonoscopy on 04/14 demonstrated diffuse colitis throughout the colon, sparing the terminal ileum. GI recommended colorectal surgery consult for total colectomy and Kochs pouch. Dr. Quintana consulted, agreed to see the patient tomorrow. -stool studies negative for infectious cause, repeat calprotectin pending. -IV Zosyn Q6HR (04/13-04/15) DC today -IV Maintenance fluids -IV pain control, nausea -Tylenol for fever #Acute on Chronic Iron deficiency anemia in the setting of blood loss Initial Hgb 9.5 and platelets 444 Patient received 2 PRBC in ED in previous ED visit, 04/11/25 Hgb stable at around 8. ?Transfuse if Hgb less than 7 ?Will continue to monitor - Daily CBC Health maintenance: Disposition: Patient is admitted to Med/Surg for further management of UC flare Diet: Low fiber diet GI prophylaxis: Protonix BID DVT prophylaxis: SCDs Code: Full code The patient's management plan was discussed with my attending physician DO Micah Batista DO PGY-1 ([facility]) Attending Provider Attestation/Addendum I have discussed and was present for the essential components of the history, physical examination, diagnosis, and treatment plan with the resident. I agree with the patient's care as documented by the resident and amended herein by me. Aldo Walker DO. Although this document has been carefully reviewed, there may still be some phonetic and other typographical errors. These errors are purely grammatical due to imperfections in the software program and should not be construed in any way to compromise the substance of the patient's medical care during this visit.
--- NOTE | 2025-04-15 21:59 | PD.IMPROG ---
Documentation for date of: 04/15/25 Subjective Subjective Interval history: Patient evaluated hemoglobin hematocrit 7.9 and 27.8 patient has absolutely failed medical management colonoscopy shows pancolitis Exam Vital Signs Temp Pulse Resp BP Pulse Ox O2 Del Method O2 Flow Rate 97.2 F 72 16 93/53 L 100 Room Air 3 04/15/25 20:00 04/15/25 20:00 04/15/25 20:00 04/15/25 20:00 04/15/25 20:00 04/15/25 20:00 04/14/25 20:45 Objective Labs 04/15/25 05:00 04/15/25 05:00 Labs: Laboratory Results - last 24 hr 04/15/25 05:00 WBC 5.8 D RBC 3.83 L Hgb 7.9 L Hct 27.8 L MCV 73 L MCH 20.6 L MCHC 28.4 L RDW Std Deviation 61.5 H Plt Count 421 D Neut % (Auto) 79 Lymph % (Auto) 17 [place] % (Auto) 4 Eos % (Auto) 0 Baso % (Auto) 0 Neut # (Auto) 4.6 Lymph # (Auto) 1.0 [place] # (Auto) 0.2 Eos # (Auto) 0.0 Baso # (Auto) 0.0 Immature Gran # (Auto) 0.02 H Absolute Nucleated RBC 0.00 Immature Gran % 0 Nucleated RBC % 0 Sodium 142 Potassium 4.2 Chloride 104 Carbon Dioxide 30.1 Anion Gap 8 BUN 6 L Creatinine 0.8 Estim Creat Clear Calc 131.5 eGFR > 60 BUN/Creatinine Ratio 8 L Glucose 115 H Calculated Osmolality 281 Calcium 8.3 Corrected Calcium 9.4 Phosphorus 5.3 H Magnesium 2.4 Total Bilirubin 0.5 AST 12 ALT < 7 L Alkaline Phosphatase 77 Total Protein 5.3 L Albumin 2.6 L Globulin 2.7 Albumin/Globulin Ratio 1.0 L Impressions Impression: Pancolitis not responsive to any therapy Recommend surgical consultation Assessment & Plan Time Spent With Patient Time: Total time spent is greater than 50% in coordination of care (as documented) at patient's floor/unit and/or counseling patient:
[2025-04-16] VITALS: BP 110/68; PULSE 61; RESP 17; TEMP 36.3; O2SAT 99
[2025-04-16 04:00] VITALS: BP 99/70; PULSE 63; RESP 16; TEMP 36.3; O2SAT 100
[2025-04-16 08:00] VITALS: BP 108/67; PULSE 62; RESP 17; TEMP 36.2; O2SAT 99
[2025-04-16 09:39] LABS: Basophils # (Auto) 0.0 Thou/mm3 (0.0-0.2); Basophils % (Auto) 0 % (0-2.5); Eosinophils # (Auto) 0.0 Thou/mm3 (0.0-0.5); Eosinophils % (Auto) 0 % (0-10); Hematocrit 27.3 % (36.0-46.0); Immature Granulocytes Auto 0.08 Thou/mm3 (0.00-0.00); Lymphocytes # (Auto) 1.4 Thou/mm3 (1.0-4.8); Lymphocytes % (Auto) 16 % (10-50); Mean Corpuscular HGB Conc 28.2 g/dl (31.0-37.0); Mean Corpuscular Hemoglobin 20.4 pg (25.0-35.0); Mean Corpuscular Volume 72 fL (80-100); Monocytes # (Auto) 1.0 Thou/mm3 (0.0-0.8); Monocytes % (Auto) 11 % (0-12); Neutrophils # (Auto) 6.4 Thou/mm3 (1.8-7.7); Neutrophils % (Auto) 72 % (37-80); Nucleated Red Blood Cell # 0.00 Thou/mm3 (0.00-0.00); Nucleated Red Blood Cell % 0 /100 WBC (0); Platelet Count 477 Thou/mm3 (140-440); RDW Standard Deviation 60.9 fL (36.4-46.3); Red Blood Count 3.77 Miln/mm3 (4.00-5.20); White Blood Count 8.9 Thou/mm3 (3.6-11.0)
[2025-04-16 09:40] LABS: Hemoglobin 7.7 g/dL (12.0-16.0)
[2025-04-16] MEDS: FOLIC ACID 1 MG TABLET PO (09:53)
[2025-04-16 09:55] LABS: Alanine Aminotransferase < 7 U/L (10-49); Albumin, Serum 2.7 gm/dL (3.5-5.0); Albumin/Globulin Ratio 1.1 (1.2-2.2); Alkaline Phosphatase 77 U/L (46-116); Anion Gap 6 (7-16); Aspartate Amino Transferase 11 U/L (0-34); BUN/Creatinine Ratio 10 Ratio (12-20); Bilirubin,Total 0.3 mg/dL (0.3-1.2); Blood Urea Nitrogen 7 mg/dL (9-23); Calcium 8.2 mg/dL (8.3-10.6); Calcium (Corrected) 9.2 mg/dL (8.5-10.1); Carbon Dioxide 28.6 mMol/L (20.0-31.0); Chloride 106 mMol/L (98-107); Creatinine (Component) 0.7 mg/dL (0.6-1.3); Estimated Creatinine Clearance 147.6 mL/min (>60); Globulin 2.4 gm/dL (2.3-3.5); Glucose 119 mg/dL (74-106); Osmolality,Calculated 280 (275-295); Potassium 4.5 mMol/L (3.4-5.1); Sodium 141 mMol/L (136-145); Total Protein 5.1 gm/dL (5.7-8.2); eGFR > 60 See Note
[2025-04-16 12:00] VITALS: BP 108/70; PULSE 55; RESP 17; TEMP 36.3; O2SAT 100
--- NOTE | 2025-04-16 13:50 | ESPR_ITS ---
<Statement entered by Dina Guzman MD - 04/16/25 16:59> Patient examined at bedside. No events overnight. Abdominal pain has improved and patient endorses decreased frequency and bowel movements. Colonoscopy from yesterday showed severe pancolitis and per GI recommendations patient should have colectomy. General surgery Dr. Simons was consulted and agreed to talk with patient about possible choices of management including surgery. She will follow-up outpatient. Hb is 7.7, MCV 72, CMP unremarkable. Continue IV methylprednisone 40 mg daily and uptitrate azathioprine to 100 mg daily. Anticipate discharge tomorrow and close follow-up with GI. The patient's management plan was discussed with my attending physician Dr. Walker. Dina Guzman, PGY-2 Documentation for date of: 04/16/25 Subjective Subjective Interval history: Patient examined at bedside. NAOE. Patient denies abdominal pain, states her stools are becoming more formed today without blood. Dr. Quintana's medical student visited patient at bedside today to discuss the possibility of therapeutic colectomy with the patient, though the patient was not interested in this procedure at this time. There is concern that patient's improved symptoms are due to high intensity steriods at this time, and she has a high risk of relapse. Patient is not being followed by GI on an outpatient basis. Given these concerns Dr. Quintana graciously expressed willingess to see her on an outpatient basis if she should have a relapse despite maximal medical therapy. Azathioprine will be increased to 100 mg tomorrow. Exam Vital Signs Temp Pulse Resp BP Pulse Ox O2 Del Method O2 Flow Rate 97.4 F 55 L 17 108/70 100 Room Air 3 04/16/25 12:04/16/25 12:04/16/25 12:04/16/25 12:04/16/25 12:04/16/25 12:04/14/25 20:45 Narrative Exam General Appearance: Pt sitting up in bed, cooperative, young female, not in acute distress. HEENT: NC/AT, no scleral icterus, no conjunctival pallor, MMM, oral mucosa without lesions Lungs: No strider, tachypnea, or labored speech. CVS: RRR, extremities warm and well perfused. ABD: Soft, nontender, non distended. EXT: no deformity/edema/lesions/cyanosis/clubbing, radial pulses 2+ BL, DP pulses 2 + BL SKIN: Skin exam normal without any rashes. Neuro: A&O x 3. No gross neurological deficits. Motor and sensory grossly intact in B/L UL and LL. Psych: Appropriate mood and affect Objective Labs 04/16/25 09:21 04/16/25 09:21 Labs: Laboratory Results - last 24 hr 04/16/25 09:21 WBC 8.9 D RBC 3.77 L Hgb 7.7 L Hct 27.3 L MCV 72 L MCH 20.4 L MCHC 28.2 L RDW Std Deviation 60.9 H Plt Count 477 H D Neut % (Auto) 72 Lymph % (Auto) 16 [place] % (Auto) 11 Eos % (Auto) 0 Baso % (Auto) 0 Neut # (Auto) 6.4 Lymph # (Auto) 1.4 [place] # (Auto) 1.0 H Eos # (Auto) 0.0 Baso # (Auto) 0.0 Immature Gran # (Auto) 0.08 H Absolute Nucleated RBC 0.00 Immature Gran % 1 H Nucleated RBC % 0 Sodium 141 Potassium 4.5 Chloride 106 Carbon Dioxide 28.6 Anion Gap 6 L BUN 7 L Creatinine 0.7 Estim Creat Clear Calc 147.6 eGFR > 60 BUN/Creatinine Ratio 10 L Glucose 119 H Calculated Osmolality 280 Calcium 8.2 L Corrected Calcium 9.2 Total Bilirubin 0.3 AST 11 ALT < 7 L Alkaline Phosphatase 77 Total Protein 5.1 L Albumin 2.7 L Globulin 2.4 Albumin/Globulin Ratio 1.1 L Quality Measures Quality Measures VTE prophylaxis Assessment & Plan Assessment Current Active Medications: Generic Name Dose Route Start Last Admin Trade Name Freq PRN Reason Stop Dose Admin Acetaminophen 650 mg 04/12/25 18:42 Acetaminophen 325 Mg Tablet PO 05/12/25 18:41 Q6HR PRN Fever >100.4 or pain 1-3 Hydrocodone Bitart/Acetaminophen 1 tab 04/12/25 15:43 Hydrocodone/Apap 10/325 Tab PO 04/17/25 15:42 Q4H PRN PAIN SCALE 4-6 (Moderate Azathioprine 100 mg 04/17/25 09:00 Azathioprine 50 Mg Tablet PO 05/17/25 08:59 QDAY RENATO Folic Acid 1 mg 04/13/25 16:30 04/16/25 09:53 Folic Acid 1 Mg Tablet PO 05/13/25 16:29 1 mg QDAY RENATO Administration Mesalamine 1,200 mg 04/13/25 17:30 04/16/25 11:49 Mesalamine 400 Mg Capsule.Dr MUÑOZ 05/13/25 17:29 Not Given QID RENATO Methylprednisolone Sodium Succinate 40 mg 04/12/25 21:00 04/16/25 09:56 Methylprednisolone Sod Succ 40 Mg/Ml Vial IVP 04/19/25 20:59 40 mg BID RENATO Administration Metoclopramide HCl 10 mg 04/12/25 15:43 04/12/25 17:09 Metoclopramide Inj 5 Mg/Ml Vial 2 Ml IVP 05/12/25 15:42 10 mg Q6H PRN Administration NAUSEA OR VOMITING Protocol Morphine Sulfate 2 mg 04/12/25 15:43 Morphine Sulf Inj 4 Mg/Ml Vial IVP 04/17/25 15:42 Q4HR PRN PAIN SCALE 7-10 (Severe Pantoprazole Sodium 40 mg 04/12/25 21:00 04/16/25 09:56 Pantoprazole Inj 40 Mg Vial IVP 05/12/25 20:59 40 mg Q12HR RENATO Administration Plan Ms. Salamanca is a 24-year-old female with past medical history significant for ulcerative colitis on Skyrizi (risankizumab-rzaa) since November 2024 who presented to the ED this morning with worsening left-sided abdominal pain, high- grade fever and bloody diarrhea and admitted to [facility] for further management of possible ulcerative colitis flare versus infectious etiology for colitis on 04/12/25. Colonoscopy on 04/14 demonstrated diffuse colitis throughout the colon, sparing the terminal ileum. GI recommended colorectal surgery consult for total colectomy and Kochs pouch. Dr. Quintana consulted, agreed to see the patient tomorrow. #Sepsis (resolved) 2/2 #Ulcerative Colits flare #Intractable nausea/vomiting (resolved) #Bloody diarrhea Patient presented with a high grade fever of 102F, tachycardia of 134 with possible source confirmed on CT Abdomen/Pelvis suggesting mild nonspecific colitis. Patient received her recent Skyrizi infusion on Sunday04/07/25, and shortly after began to have lower abdominal left sided abdominal pain, and next day started having 10 episodes of bloody diarrhea. Patient later had a high grade fever and intractable n/v early this morning. Patient received sepsis bolus for 30cc/kg ~2.8L; Elevated pro-ivette. End organ damage seen with impaired liver synthesis, seen as elevated bilirubin of 1.3, baseline around 0.7. Stool studies notable for elevated calprotectin >8000 and 3+ WBCs, negative infectious workup. At this point, acute UC colitis flair is most likely. Consulted GI, and recommended to start IV Solumedrol 40mg BID, azathioprine starting at 50 mg daily and uptitrate to 200 mg daily. Also resume mesalamine for total of 4.8 g daily. Colonoscopy on 04/14 demonstrated diffuse colitis throughout the colon, sparing the terminal ileum. GI recommended colorectal surgery consult for total colectomy and Kochs pouch. Dr. Quintana consulted, surgery was discussed with the patient, however patient is not interested in surgery at this time. Patient's symptoms seem to be improving with steriods and azathioprine, though she is at high risk of relapse. Dr. Espana recommending staying an extra night for additional inpatient meds. -stool studies negative for infectious cause, repeat calprotectin pending. -Azathioprine 100mg tomorrow -methylprednisolone 40 mg BID -Mesalamine PO 1200 mg QID -IV Zosyn Q6HR (04/13-04/15) #Acute on Chronic Iron deficiency anemia in the setting of blood loss Initial Hgb 9.5 and platelets 444 Patient received 2 PRBC in ED in previous ED visit, 04/11/25 Hgb stable at around 7.7 today. ?Transfuse if Hgb less than 7 ?Will continue to monitor - Daily CBC Health maintenance: Disposition: Patient is admitted to Med/Surg for further management of UC flare Diet: Low fiber diet GI prophylaxis: Protonix BID DVT prophylaxis: SCDs Code: Full code The patient's management plan was discussed with my attending physician DO Micah Batista DO PGY-1 ([facility]) Attending Provider Attestation/Addendum I have discussed and was present for the essential components of the history, physical examination, diagnosis, and treatment plan with the resident. I agree with the patient's care as documented by the resident and amended herein by me. Aldo Walker DO. Although this document has been carefully reviewed, there may still be some phonetic and other typographical errors. These errors are purely grammatical due to imperfections in the software program and should not be construed in any way to compromise the substance of the patient's medical care during this visit.
[2025-04-16 16:00] VITALS: BP 114/72; PULSE 60; RESP 19; TEMP 36.1; O2SAT 99
[2025-04-16 20:00] VITALS: BP 97/61; PULSE 72; RESP 18; TEMP 36.6; O2SAT 97
--- NOTE | 2025-04-16 21:37 | PD.IMPROG ---
Documentation for date of: 04/16/25 Subjective Subjective Interval history: Patient evaluated Hemoglobin hematocrit 7.7 and 27.3 Our colorectal surgeon will see the patient as an outpatient Exam Vital Signs Temp Pulse Resp BP Pulse Ox O2 Del Method O2 Flow Rate 97.9 F 72 18 97/61 97 Room Air 3 04/16/25 20:00 04/16/25 20:00 04/16/25 20:00 04/16/25 20:00 04/16/25 20:00 04/16/25 20:00 04/14/25 20:45 Objective Labs 04/16/25 09:21 04/16/25 09:21 Labs: Laboratory Results - last 24 hr 04/16/25 09:21 WBC 8.9 D RBC 3.77 L Hgb 7.7 L Hct 27.3 L MCV 72 L MCH 20.4 L MCHC 28.2 L RDW Std Deviation 60.9 H Plt Count 477 H D Neut % (Auto) 72 Lymph % (Auto) 16 [place] % (Auto) 11 Eos % (Auto) 0 Baso % (Auto) 0 Neut # (Auto) 6.4 Lymph # (Auto) 1.4 [place] # (Auto) 1.0 H Eos # (Auto) 0.0 Baso # (Auto) 0.0 Immature Gran # (Auto) 0.08 H Absolute Nucleated RBC 0.00 Immature Gran % 1 H Nucleated RBC % 0 Sodium 141 Potassium 4.5 Chloride 106 Carbon Dioxide 28.6 Anion Gap 6 L BUN 7 L Creatinine 0.7 Estim Creat Clear Calc 147.6 eGFR > 60 BUN/Creatinine Ratio 10 L Glucose 119 H Calculated Osmolality 280 Calcium 8.2 L Corrected Calcium 9.2 Total Bilirubin 0.3 AST 11 ALT < 7 L Alkaline Phosphatase 77 Total Protein 5.1 L Albumin 2.7 L Globulin 2.4 Albumin/Globulin Ratio 1.1 L Impressions Impression: Gillis ulcerative colitis which is very severe on current colonoscopy findings with failure of medical management so far Continue current management Will discuss the issue with internal medicine team tomorrow I would like the patient to be followed in our GME clinic Assessment & Plan Time Spent With Patient Time: Total time spent is greater than 50% in coordination of care (as documented) at patient's floor/unit and/or counseling patient:
[2025-04-17] VITALS: BP 102/65; PULSE 67; RESP 16; TEMP 36.6; O2SAT 98
[2025-04-17 04:00] VITALS: BP 117/71; PULSE 75; RESP 16; TEMP 36.5; O2SAT 100
[2025-04-17 07:36] LABS: Alanine Aminotransferase 11 U/L (10-49); Albumin, Serum 2.9 gm/dL (3.5-5.0); Albumin/Globulin Ratio 1.1 (1.2-2.2); Alkaline Phosphatase 79 U/L (46-116); Anion Gap 6 (7-16); Aspartate Amino Transferase 18 U/L (0-34); BUN/Creatinine Ratio 13 Ratio (12-20); Bilirubin,Total 0.3 mg/dL (0.3-1.2); Blood Urea Nitrogen 9 mg/dL (9-23); Calcium 8.5 mg/dL (8.3-10.6); Calcium (Corrected) 9.4 mg/dL (8.5-10.1); Carbon Dioxide 28.7 mMol/L (20.0-31.0); Chloride 105 mMol/L (98-107); Creatinine (Component) 0.7 mg/dL (0.6-1.3); Estimated Creatinine Clearance 147.6 mL/min (>60); Globulin 2.6 gm/dL (2.3-3.5); Glucose 113 mg/dL (74-106); Osmolality,Calculated 279 (275-295); Potassium 5.3 mMol/L (3.4-5.1); Sodium 140 mMol/L (136-145); Total Protein 5.5 gm/dL (5.7-8.2); eGFR > 60 See Note
[2025-04-17 07:45] LABS: Basophils # (Auto) 0.0 Thou/mm3 (0.0-0.2); Basophils % (Auto) 0 % (0-2.5); Eosinophils # (Auto) 0.0 Thou/mm3 (0.0-0.5); Eosinophils % (Auto) 0 % (0-10); Hematocrit 30.0 % (36.0-46.0); Immature Granulocytes Auto 0.11 Thou/mm3 (0.00-0.00); Lymphocytes # (Auto) 1.6 Thou/mm3 (1.0-4.8); Lymphocytes % (Auto) 13 % (10-50); Mean Corpuscular HGB Conc 28.7 g/dl (31.0-37.0); Mean Corpuscular Hemoglobin 20.9 pg (25.0-35.0); Mean Corpuscular Volume 73 fL (80-100); Monocytes # (Auto) 1.1 Thou/mm3 (0.0-0.8); Monocytes % (Auto) 9 % (0-12); Neutrophils # (Auto) 9.8 Thou/mm3 (1.8-7.7); Neutrophils % (Auto) 77 % (37-80); Nucleated Red Blood Cell # 0.00 Thou/mm3 (0.00-0.00); Nucleated Red Blood Cell % 0 /100 WBC (0); Platelet Count 442 Thou/mm3 (140-440); RDW Standard Deviation 63.3 fL (36.4-46.3); Red Blood Count 4.12 Miln/mm3 (4.00-5.20); White Blood Count 12.6 Thou/mm3 (3.6-11.0)
[2025-04-17 07:48] LABS: Hemoglobin 8.6 g/dL (12.0-16.0)
[2025-04-17 08:00] VITALS: BP 116/76; PULSE 60; RESP 18; TEMP 36.1; O2SAT 100
[2025-04-17] MEDS: FOLIC ACID 1 MG TABLET PO (09:29)
--- NOTE | 2025-04-17 11:56 | ESDS_ITS ---
<Statement entered by Dina Guzman MD - 04/17/25 16:14> 24-year-old female with past medical history significant for ulcerative colitis on Skyrizi (risankizumab-rzaa) since November 2024 who presented to the ED 04/12/25 due to worsening left-sided abdominal pain, high-grade fever and bloody diarrhea. Patient noted that she got her recent Skyrizi infusion on 04/07/2025 and shortly after patient started having left-sided lower abdominal pain. Patient last saw her GI doctor, Laura Chatman 2 months ago, and was recommended to stop taking her other GI medications such as Mesalamine, prednisone, pantoprazole. Patient has previously been on Entyvio infusions for about 5 months, and has also tried infliximab however has had severe allergies such as wheezing, shortness of breath, swelling face. She has not followed with GI since 2 months ago as provider has moved. She was admitted for UC flare and started on IV steroids, azathioprine, and mesalamine. GI was consulted for colonoscopy. Completed on 04/14 found to have hemorrhoids on perianal exam, mucosal ulceration in the rectum which were biopsied, severe engle ulcerative colitis. Per GI recommendations team consulted surgery Dr. Quintana. Patient may need colectomy due to failed medical therapy. During hospitalization diarrhea and abdominal pain improved. Steroid course was tapered. Patient should continue prednisone taper course as prescribed and follow-up with PCP and GI. Note reviewed, I agree with most of its contents and agree with the patient's care as documented by Dr. Whitaker. The patient's management plan was discussed with my attending physician Dr. Walker. Dina Guzman, PGY-2 Planned Discharge Date 04/17/25 DS: Providers Provider Date of admission: 04/12/25 15:43 Primary care physician: Physician No Primary/Family Admitting Provider: Benji Shin MD Attending Provider on Admission: Jayy Walker DO Consults: 04/13/25 08:18 Consult to Gastroenterology Routine Comment: Consulting Provider: Radha Espana 04/15/25 15:50 Consult to General Surgery Routine Comment: Consulting Provider: Pinky Quintana Attending Provider on DC: Jayy Walker DO Discharging Provider: Micah Whitaker MD DS: Diagnosis Problem List Completed Was Problem List Reviewed/Reconciled?: Yes Hospital Course Hospital Course Hospital course: Ms. Salamanca is a 24-year-old female with past medical history significant for ulcerative colitis on Skyrizi (risankizumab-rzaa) since November 2024 who presented to the ED on 04/12/2025 with worsening left-sided abdominal pain, high- grade fever and bloody diarrhea. Patient noted that she got her recent Skyrizi infusion on 04/07/2025 Patient last saw her GI doctor, 2 months ago, and was recommended to stop taking her other GI medications such as Mesalamine, prednisone, pantoprazole. Patient has previously been on Entyvio infusions for about 5 months, and has also tried infliximab however has had severe allergies such as wheezing, shortness of breath, swelling face. GI consultation with Dr. Espana on 04/13 patient was started on methylprednisolone, azathioprine uptitration, and mesalamine. Colonoscopy was done on 04/14 and showed diffuse ulceration from the rectum throughout the colon with sparing of the terminal ilieum. Multiple sites were biopsied. On 04/15, Dr. Quintana was consulted at the recommendation of Dr. Espana for consideration of total colectomy with Wilde's pouch, patient was not interested in surgery at this time. On 04/16, patient's azathioprine dose was uptitrated from 50 mg to 100 mg. At this point, her abdominal pain had resolved, and she was making more formed stools without blood. Patient was discharged in stable condition on 04/17 with perscriptions of mesalamine, azathioprine, and steriod taper. She will follow up in GME clinic and with Dr. Quintana on an outpatient basis. Discharge Diagnoses: #Severe Ulcerative Colitis Flare #Acute on Chronic Iron deficiency anemia in the setting of blood loss Time Spent with Patient Time attestation: Total time spent providing and/or coordinating discharge services: Time spent: Greater than 30 minutes Exam Vital Signs Temp Pulse Resp BP Pulse Ox O2 Del Method O2 Flow Rate 97.0 F 60 18 116/76 100 Room Air 3 04/17/25 08:00 04/17/25 08:00 04/17/25 08:00 04/17/25 08:00 04/17/25 08:00 04/17/25 08:00 04/14/25 20:45 Narrative Exam General Appearance: Pt sitting up in bed, cooperative, young female, not in acute distress. HEENT: NC/AT, no scleral icterus, no conjunctival pallor, MMM, oral mucosa without lesions Lungs: No strider, tachypnea, or labored speech. CVS: RRR, extremities warm and well perfused. ABD: Soft, nontender, non distended. EXT: no deformity/edema/lesions/cyanosis/clubbing, radial pulses 2+ BL, DP pulses 2 + BL SKIN: Skin exam normal without any rashes. Neuro: A&O x 3. No gross neurological deficits. Motor and sensory grossly intact in B/L UL and LL. Psych: Appropriate mood and affect Discharge Plan Plan Patient Disposition: HOME (Self Care) Patient condition on transfer: Stable Prescriptions/Referrals Prescriptions/Med Rec: New azathioprine 100 mg tablet 100 mg PO QDAY 30 Days Qty: 30 0RF mesalamine 1.2 gram tablet,delayed release (DR/EC) 4.8 g PO QDAY 56 Days Qty: 224 0RF No Action pantoprazole [Protonix] [address] for susp in packet 40 mg PO QDAY Qty: 30 0RF ondansetron 4 mg tablet,disintegrating 4 mg PO Q8H PRN (Reason: nausea and vomiting) Qty: 20 0RF Referrals: Pinky Quintana MD [Physician, General Surgery] No Primary/Family,Physician [Primary Care Provider] Patient/Caregiver Discharge Instructions Other Discharge Activity Instructions:: Continue taking mesalamine and azathioprine as prescribed for treatment of Ulcerative colitis. Complete steroid course as prescribed for a total of 6 weeks. Have close follow up with PCP at [facility]. Call [phone] for appointment. Follow up with surgeon in 1-2 weeks. Education Materials: Anemia, Colitis Ulcerative Dc Print Language: Lithuanian Stand Alone Forms: [employer] Award Info., Patient Portal Info Letter Discharge Order Discharge Orders: Discharge (Routine); Ordered 04/17/25 Ordered By: Dina Guzman Quality Discharge Quality Measures VTE prophylaxis Attestestation Attestation I have discussed and was present for the essential components of the discharge history, physical examination, diagnosis, and discharge treatment plan with the resident. I agree with the patient's discharge care as documented by the resident and amended herein by me. Aldo Walker DO. Patient cleared to be discharged home on azathioprine, mesalamine and prednisone. Due to the new onset nature of the patient's tapering prednisone course, we will call this into the pharmacy directly. All medications reviewed with gastroenterology. Patient may likely need total colectomy in the future due to failed outpatient treatment, the last course she was on was Skyrizi. General surgery did consult, is willing to see the patient in the outpatient setting to discuss further treatment options and surgery. Patient will need close follow-up with gastroenterology upon discharge. The patient's diarrhea had resolved, no more bloody stools present on day of discharge, patient's abdominal pain is also resolved and the patient stated she felt significantly improved from time of admission. The patient was stable, afebrile, tolerating p.o. intake and ambulatory at time of discharge home. The patient understood all discharge instructions, all questions were answered satisfactorily. The patient was instructed to return to the Emergency Department is symptoms worsened or persisted. Although this document has been carefully reviewed, there may still be some phonetic and other typographical errors. These errors are purely grammatical due to imperfections in the software program and should not be construed in any way to compromise the substance of the patient's medical care during this visit.
[2025-04-17 12:00] VITALS: BP 120/60; PULSE 65; RESP 18; TEMP 36.2; O2SAT 100
--- NOTE | 2025-04-17 20:41 | PD.IMPROG ---
Documentation for date of: 04/17/25 Subjective Subjective Interval history: Late entry for the note Case discussed with the internal medicine team Hemoglobin hematocrit 8.6 and 30.0 Exam Vital Signs Temp Pulse Resp BP Pulse Ox O2 Del Method O2 Flow Rate 97.1 F 65 18 120/60 100 Room Air 3 04/17/25 12:00 04/17/25 12:00 04/17/25 12:00 04/17/25 12:00 04/17/25 12:00 04/17/25 12:00 04/14/25 20:45 Objective Labs 04/17/25 06:55 04/17/25 06:55 Labs: Laboratory Results - last 24 hr 04/17/25 06:55 WBC 12.6 H D RBC 4.12 Hgb 8.6 L Hct 30.0 L MCV 73 L MCH 20.9 L MCHC 28.7 L RDW Std Deviation 63.3 H Plt Count 442 H D Neut % (Auto) 77 Lymph % (Auto) 13 [place] % (Auto) 9 Eos % (Auto) 0 Baso % (Auto) 0 Neut # (Auto) 9.8 H Lymph # (Auto) 1.6 [place] # (Auto) 1.1 H Eos # (Auto) 0.0 Baso # (Auto) 0.0 Immature Gran # (Auto) 0.11 H Absolute Nucleated RBC 0.00 Immature Gran % 1 H Nucleated RBC % 0 Sodium 140 Potassium 5.3 H D Chloride 105 Carbon Dioxide 28.7 Anion Gap 6 L BUN 9 Creatinine 0.7 Estim Creat Clear Calc 147.6 eGFR > 60 BUN/Creatinine Ratio 13 Glucose 113 H Calculated Osmolality 279 Calcium 8.5 Corrected Calcium 9.4 Total Bilirubin 0.3 AST 18 ALT 11 Alkaline Phosphatase 79 Total Protein 5.5 L Albumin 2.9 L Globulin 2.6 Albumin/Globulin Ratio 1.1 L Impressions Impression: Severe engle ulcerative colitis with normal terminal ileum Tapering dose of prednisone along with Skyrizi treatment with infusion by the treating property and equipment clerk in [place] along with mesalamine azathioprine and folic acid Patient should also be followed at the [facility] clinic Assessment & Plan Time Spent With Patient Time: Total time spent is greater than 50% in coordination of care (as documented) at patient's floor/unit and/or counseling patient:
[2025-04-20 06:24] LABS: Calprotectin, Stool* 2070 mcg/g
[2025-04-23 06:33] LABS: ANCA Screen POSITIVE (NEGATIVE); Atypical P-ANCA Titer 1:640 titer (<1:20); Myeloperoxidase Ab <1.0 AI (<1.0); Proteinase-3 Ab <1.0 AI (<1.0)
== END 2025-04-17 14:50 | disposition home or self-care (01) | DRG 720 ==
LOC: SERX 15:09 → SERHOLD 15:57 → S3NX 21:16
PROVIDERS: Nurse Practitioner Family; Registered Nurse General Practice; Specialist; Student in an Organized Health Care Education/Training Program; Admitting Provider Student in an Organized Health Care Education/Training Program; Emergency Provider Emergency Medicine; Visit Provider Student in an Organized Health Care Education/Training Program
PROC: 0DJD8ZZ Inspection of Lower Intestinal Tract, Via Natural or Artificial Opening Endoscopic (ICD-10-PCS; CPT 45378; principal; 2025-04-14 20:30)
DX: A41.9 Sepsis, unspecified organism (principal); K51.911 Ulcerative colitis, unspecified with rectal bleeding; R65.20 Severe sepsis without septic shock; A09 Infectious gastroenteritis and colitis, unspecified; E87.5 Hyperkalemia; E87.20 Acidosis, unspecified; D50.9 Iron deficiency anemia, unspecified; K62.6 Ulcer of anus and rectum; K58.9 Irritable bowel syndrome, unspecified; K64.9 Unspecified hemorrhoids; Z79.624 Long term (current) use of inhibitors of nucleotide synthesis
CPT/HCPCS: 36415; 71045; 74176; 80053; 81001; 81025; 83605; 83615; 83735; 83880; 83993; 84100; 84145; 84443; 84484; 85014; 85018; 85025; 85610; 85730; 86021; 86036; 86037; 86140; 86850; 86900; 86901; 87015; 87040; 87045; 87046; 87077; 87081; 87086; 87186; 87400; 87493; 87811; 87899; 93005; 96361; 96365; 96375; 99285; A4649; J1200; J2250; J2270; J2470; J2543; J2765; J2919; J3010; J7120; J7500; A9270

== ENCOUNTER 2025-04-24 12:57 | Outpatient (AMB) | payer MEDICAID, SELFPAY ==
[2025-04-24 13:19] VITALS: BP 107/70; PULSE 85; RESP 19; TEMP 36.5; O2SAT 99
--- NOTE | 2025-04-24 13:19 | ACNOTE_ITS ---
<Statement entered by Kelechi Ram MD - 04/29/25 14:37> Attending note: I, Kelechi Ram MD, attest that I was physically present for the storey portions of the service and evaluated the patient with the resident and I reviewed and discussed the case with the resident and agree with the resident's findings and plans of care as documented above. Vital Signs 04/24/25 13:19 Weight 91.626 kg Weight Measurement Method Standing Scale BP 107/70 Blood Pressure Source Automatic Cuff Blood Pressure Location Right Upper Arm Position Sitting Respiration 19 Pulse 85 Pulse Source Monitor Temp 97.7 F Temp Source Oral Pulse Oximetry (%) 99 Oxygen Delivery Method Room Air Allergies/Meds Allergies & Medications Allergies infliximab-dyyb Allergy (Severe, Verified 04/24/25 13:20) Difficulty Breathing Medication Reconciliation ondansetron 4 mg disintegrating tablet 4 mg PO Q8H PRN nausea and vomiting #20 tabs 11/04/24 [Rx Confirmed 04/24/25] Held on 04/12/25. Instructions: Doctor's Order pantoprazole 40 mg granules delayed-release for susp in packet (Protonix) 40 mg PO QDAY #30 ea 11/04/24 [Rx Confirmed 04/24/25] Held on 04/12/25. Instructions: Doctor's Order azathioprine 100 mg tablet 100 mg PO QDAY 30 days #30 tabs 04/17/25 [Rx Co nfirmed 04/24/25] mesalamine 1.2 gram tablet,delayed release 4.8 g (4 x 1.2 gram) PO QDAY 8 weeks #224 tabs 04/17/25 [Rx Confirmed 04/24/25] mesalamine 500 mg capsule,extended release (Pentasa) 1,000 mg (2 x 500 mg) PO QID #240 caps 04/24/25 [Rx] MA Intake Visit Data Collection New Patient or Established: Established Patient (seen at [facility] within 3 years) Seen by Clinical Staff ONLY (RN/MA): No Pain Present Currently: Yes Pain Location: Abdomen Pain scale:: 3 Pain Scale Used: Acevedo-Jett/Numerical PCP or OBGYN visit in last 3 months: Yes Do You Feel Safe at Home: Yes Smoking Status Smoking Status: Never smoker Immunization / Flu Flu Vaccine in the Last 12 Months: No Flu Vaccine Exclusion Criteria: No Exclusion Criteria Past Medical History Past Medical History NEUROLOGIC: Negative Neurological Disorders or Seizures CARDIAC: Negative Cardiac Disorders, Myocardial Infarction, Cardiac Arrhythmia, Atrial Fibrillation, Angina, Heart Murmur, Coronary Artery Disease, Atheroscl erotic Heart Disease, Peripheral Vascular Disease, Hypercholesterolemia, Aneurysm, Congestive Heart Failure, Congenital Heart Disease, Valvular Heart Disease, Rheumatic Fever, Cardiomyopathy, Edema, Pericarditis, Cellulitis, Deep Vein Thrombosis, Hypertension, Hypotension or Varicose Veins RESPIRATORY: Negative Chronic Obstructive Pulmonary Disease (COPD) or Asthma GASTROINTESTINAL: Positive Gastrointestinal Disorders, Gastrointestinal Bleed, Colitis, Ulcerative Colitis, Irritable Bowel and Obesity; Negative Hepatitis, Cirrhosis, Pancreatitis, Celiac Disease, Gall Bladder Disease, Esophageal Varices, Hernandez's Esophagus, Diverticulitis, Diverticulosis, Ulcer, Colorectal Cancer, Crohn's Disease, Obstructive Bowel, Hiatal Hernia, Hemorrhoids or Gastroesophageal Reflux Disease GENITOURINARY: Negative Genitourinary Disorders, Renal Disease, Kidney Stones, Polycystic Kidney Disease, Neurogenic Bladder, Inguinal Hernia, Dialysis, Prostate Cancer or Benign Prostatic Hyperplasia REPRODUCTIVE: Positive Previous Pregnancies; Negative Breast Cancer, Pelvic Inflammatory Disease or Testicular Cancer MUSCULOSKELETAL: Negative Bone Cancer ENT: Negative Cataracts, Glaucoma, Blind, Retinal Detachment, Macular Degeneration, Ear Infection, Deafness or Eye Prosthesis ENDOCRINE: Positive Endocrine Disorders and Hypothyroidism; Negative Diabetes Mellitus Type 1, Diabetes Mellitus Type 2, Hypoglycemia, [place]'s Syndrome, [place]'s Disease, Hyperthyroidism, Parathyroid Disease, Pituitary Disease, Systemic Lupus Erythematosus, Syndrome of Inappropriate Antidiuretic Hormone (SIADH), Adrenal Disease or Graves' Disease HEMATOLOGIC: Positive Blood Disorders and Anemia; Negative Leukemia, Hemophilia, Thalassemia, Sickle Cell Disease or Clotting Problems PSYCHO/SOCIAL: Positive Anxiety OTHER HISTORY: Positive Hospitalization and Blood Transfusions; Negative Down Syndrome, Developmental Delay, Shingles, Falls, Blood Transfusion Reaction, Anesthesia Reactions, Organ Transplant, Chemotherapy, Radiation Therapy, Hyperbaric Therapy, MRSA, VRSA, Vancomycin-Resistant Enterococci, Human Immunodeficiency Virus (HIV), Chicken Pox, Measles, Mumps, Rubella (Kittitian Measles), Pertussis, Clostridium Difficile, Cancer, Breast Cancer, Cervical Cancer, Colorectal Cancer, Lung Cancer, Ovarian Cancer, Prostate Cancer or Testicular Cancer Family History FAMILY HISTORY: Negative Family Psychiatric Problems, Family Respiratory Disorders, Family Cardiac Disorders, Family Gastrointestinal Problems, Family Cancer, Family Surgery or Family Anesthesia Reaction Surgical History SURGICAL: Positive Section; Negative Cardiac Surgery, Pacemaker, Endocrine Surgery, Ear Surgery, Eye Surgery, Nose Surgery, Oral Surgery, Throat Surgery, Abdominal Surgery, Nephrectomy, Transurethral Resection, Joint Replacement, Neurologic Surgery, Brain Shunt, Mastectomy, Lumpectomy, Hysterectomy, Tubal Ligation, Vasectomy or Organ Transplant Social History SMOKING STATUS: Smoking status: Never smoker SECOND HAND EXPOSURE: second hand exposure: No ALCOHOL: Alcohol Intake: Never HOUSING: Housing: House LIVES WITH: Lives With: Family Patient Portal Questionaires PHQ-9 PHQ-2 Over the last 2 weeks, how often have you been bothered by any of the following problems? 1. Little interest or pleasure in doing things: not at all PHQ-9 8. Moving or speaking so slowly that other people could have noticed? - Or the opposite - being so fidgety or restless that you have been moving around a lot more than usual: not at all Source: Developed by Drs. Seth Jeffers, Mary Ann Gomes, Pierce Blandon and colleagues, with an educational danisha from [employer]. Social History Living Situation History Lives With: Family Housing: House Housing Other:: Pt from home Tobacco History Smoking Status: Never smoker Second Hand Smoke Exposure: No Alcohol History Alcohol Intake: Never Domestic Abuse History Do You Feel Safe at Home: Yes Review of Systems Report any current symptoms Only answer those that you have currently: Past Medical History Past Medical History Have you ever been diagnosed with any of the following: Neurological Problems Seizures: No Cardiology Problems Myocardial Infarction: No Cardiac Arrhythmia: No Atrial Fibrillation: No Angina: No Heart Murmur: No Coronary Artery Disease: No Atherosclerotic Heart Disease: No Peripheral Vascular Disease: No Hypercholesterolemia: No Aneurysm: No Congestive Heart Failure: No Congenital Heart Disease: No Valvular Heart Disease: No Rheumatic Fever: No Cardiomyopathy: No Edema: No Pericarditis: No Cellulitis: No Deep Vein Thrombosis: No Hypertension: No Hypotension: No Varicose Veins: No Respiratory Problems Chronic Obstructive Pulmonary Disease (COPD): No Asthma: No Stomache/Intestinal Problems Hepatitis: No Cirrhosis: No Pancreatitis: No Celiac Disease: No Gall Bladder Disease: No Gastrointestinal Bleed: Yes Esophageal Varices: No Hernandez's Esophagus: No Colitis: Yes Ulcerative Colitis: Yes Diverticulitis: No Diverticulosis: No Ulcer: No Colorectal Cancer: No Irritable Bowel: Yes Crohn's Disease: No Obstructive Bowel: No Hiatal Hernia: No Hemorrhoids: No Gastroesophageal Reflux Disease: No Obesity: Yes Genital/Urinary Problems Renal Disease: No Kidney Stones: No Polycystic Kidney Disease: No Neurogenic Bladder: No Inguinal Hernia: No Dialysis: No Reproductive Problems Breast Cancer: No Pelvic Inflammatory Disease: No Previous Pregnancies: Yes Musculoskeletal Problems Bone Cancer: No Head,Eye,Nose,Throat Problems Cataracts: No Glaucoma: No Blind: No Retinal Detachment: No Macular Degeneration: No Chronic Ear Infections: No Deafness: No Eye Prosthesis: No Endocrine Problems Diabetes Mellitus Type 1: No Diabetes Mellitus Type 2: No Hypoglycemia: No Alla's Syndrome: No Evans's Disease: No Hyperthyroidism: No Hypothyroidism: Yes Parathyroid Disease: No Pituitary Disease: No Systemic Lupus Erythematosus: No Syndrome of Inappropriate Antidiuretic Hormone: No Adrenal Disease: No Graves' Disease: No Blood Problems Anemia: Yes Leukemia: No Hemophilia: No Thalassemia: No Sickle Cell Disease: No Clotting Problems: No Psychologic Problems Anxiety: Yes Other Problems Hospitalization: Yes Down Syndrome: No Developmental Delay: No Shingles: No Falls: No Blood Transfusions: Yes Blood Transfusion Reaction: No Anesthesia Reactions: No Organ Transplant: No Chemotherapy: No Radiation Therapy: No Hyperbaric Therapy: No MRSA: No VRSA: No Vancomycin-Resistant Enterococci: No Human Immunodeficiency Virus (HIV): No Chicken Pox: No Measles: No Mumps: No Rubella (Kittitian Measles): No Pertussis: No Clostridium Difficile: No Cancer: No Cervical Cancer: No Lung Cancer: No Ovarian Cancer: No Surgical History Hysterectomy: No Pacemaker: No History of Present Illness HPI Narrative 24-year-old female with past medical history of ulcerative colitis and chronic anemia. Patient recently started her Entyvio dosages self administration via pen on October 04 after which she did not have any symptoms and she went and saw her GI specialist. She mentioned that her GI specialist was okay with the current plan, but ordered some blood work as well as a colonoscopy that will be scheduled for November. Patient mentioned that after his second shot which was on October 18 she did have left abdominal pain as well as decreased appetite and in creased bowel movements. She mentioned that she has been having around 10 bowel movements throughout the daytime and 4 bowel movements throughout the night. Most of these bowel movements have been diarrhea-like as well as bloody and are accompanied by abdominal pain and cramping after she eats. She mentioned that she has also had some nausea and vomiting in the mornings. On physical examination with shelver Amira, bacteriologist medical, present patient had moderate tenderness on the left side of the abdomen as well as in the epigastric region. Given the patient's symptoms there is some clinical suspicion for possible pancreatitis as Entyvio is known to cause acute pancreatitis as a side effect. Patient denied having any increased intake and alcohol and does not recall any changes in her diet. Patient also complained about some left foot pain, but denies any trauma to this. 04/24/2025: The patient presented today for follow-up after hospital discharge on 04/17/2025. During the hospitalization, GI Dr. Espana and general surgeon Dr. Quintana was consulted, and surgery recommended proceeding with colectomy, but patient wished to proceed with medications. The patient was referred to GI Dr. Quintanilla at [place], but has not been able to see him. On this visit, she reported mild abdominal upset, but denied any headache, nausea or vomiting, chest pain, SOB, abdominal pain, any changes in bowel or bladder habit, nausea or vomiting, fever or chills. She reported that, she has not been able to swallow her mesalamine 4.8 g daily tablets, and requested to switch this to a different medications. Her mesalamine was switched to equivalent dose of Pentasa 1 g every 6 hourly. The patient was encouraged to follow-up with general surgeon and GI specialist. 11/04/24: Patient scheduled an appointment for tele-visit. Patient reported that she received her blood test critical lab value from [employer] and immediately went to the research leader will transfuse her 2 units PRBC on 10/30 however she did not had repeat H&H. She reported that she continues to have more than 10 episodes of bowel movement with dark stool. Her abdominal pain is a little better than last week however continues to persist after eating. She reports to have improvement in her left foot pain. She feels better after receiving blood transfusion. CBC was significant for hemoglobin 6.4 dropped from 9.0 reported on 10/29. HCT 24.9. Monocytes were 1.0. Platelet count 543. Lipase was 22. Patient was advised to follow-up with H&H by tomorrow to evaluate if she needs another transfusion if necessary. She was given a longer steroid taper for the last 4 weeks to help up with UC mild flare. She already completed the course of Dosepak. She was also given a prescription refill for Protonix 40 mg once a day. Dose instructions for steroid taper was printed and she was advised to black pickler tomorrow from the clinic. She was also advised to continue taking her Entyvio infusion given lipase was unremarkable and abdominal pain has subsided. Follow-up on H&H and advised to schedule an appointment in a week time to evaluate for symptoms. 01/21/2025 Reports resolution of bloody stool, following with Dr. Osman () who recently started monthly Risankizumab (SKYRIZI) infusions, ENTYVIO has been discontinued. Overall, her symptoms have improved after second infusion of SKYRIZI. Denies fever, chills, bloody stool, diarrhea, nausea, vomiting, constipation, skin rashes or ulcers. She has mild abdominal pain on and off but relatively improved and controlled. Last H&H with Hgb 7.5 from 01/04/2025 after transfusions. Complaints of fatigue but generally but overall improving. Continued on steroids taper. discontinued IRON supplements. She has an appt in about 2 weeks. Periods are regular, no heavy bleeds, LMP 12/06/2024. Labs from 01/04/2025: Calprotectin 1860, FERRITIN 8, CRP 12, B12 249, VITAMIN D 12.5, ALBUMIN 3.3, Hgb 7.5, MCV 78, PLT 494, normal renal panel and electrolytes. Orders: Repeat CBC today given fatigue and scleral icterus on exam, return to office 6 weeks. Medications: Ordered PREDNISONE taper, starting with 20 mg weekly, decrease by 5 mg every week. Risankizumab managed by . Next visit: follow-up CBC. 03/05/2025: Patient was seen and examined in the clinic. She stated that she has been feeling weak and dizzy however denies noticing any blood in the stool anymore. She also endorses some nausea especially after eating food. She is having 8 hours of sleep but still feels tired. Patient reports that she has been taking Skyrizi every 8 weeks. Last dose was given on February 10, 2025 and next 1 is due on April 07, 2025. Patient received 1 unit of PRBC on 01/29/2025 based on CBC from 01/31/2025 with hemoglobin 6.8. Patient is off steroids now. She reported that her menstrual cycle has been late for 40 days. Her last menstrual cycle was 3 days and was on February 23, 2025. Patient reported that she is not following with her GI specialist Dr. Viky Chatman as she is no more working in [facility]. Patient was given a follow-up with another GI specialist Dr. Brad Krueger in [facility]. Documents were faxed after speaking to their office. Patient will schedule the appointment once referral is complete. Stat CBC and TSH was ordered to evaluate patient's hemoglobin. Will follow-up with lab results and likely see next 2 weeks. 03/19/25: Patient came for follow-up in the clinic. CBC showed Hgb 7.4, hematocrit 29.4, MCV 74, MCH 18.7, RDW 19. Platelets 615. WBC 6.3, TSH 3.370. Patient reported continued fatigue and weakness. She denied any symptoms of blood or black-colored stool. Mild shortness of breath. Patient also had a disability form from her high school which was filled and signatures for limitations. Patient cannot tolerate oral iron therapy as well. She was advised to get a PRBC transfusion and IV iron therapy which will be set up with [facility] as outpatient. [employer] [facility] forms were filled and currently awaiting on authorization. Additionally, patient is also waiting on authorization from insurance for GI specialist follow-up. Patient will be followed up once she receive blood transfusion with post H&H follow-up and IV iron therapy. Follow- up in a month. Review of Systems Review of Systems Systems Reviewed: All systems reviewed, normal except as documented Objective/Exam Narrative Physical exam: General: Well-nourished, cooperative female, no acute distress, Alert and Oriented x 3 HEENT: Moist mucous membranes, oropharynx clear Neck: Supple, No masses, No JVD CVS: S1S2 Regular rate and rhythm, No murmurs, rubs or gallops Lungs: Clear to auscultation with no accessory use, no wheeze no rhonchi Abd: Soft, NT/ND, +BS, no organomegaly Ext: No edema, warm and well perfused Skin: No rash Psych: Appropriate mood and affect Assessment & Plan Diagnosis / Problem List (1) Ulcerative pancolitis: Status: Acute Assessment & Plan: The patient is here for follow-up after hospital discharge, and reported doing well. She admitted mild abdominal upset, but denied any abdominal pain, diarrhea or vomiting, and no blood in the stool. However tiredness has been improving. Plan: - She was prescribed mesalamine 4.8 g daily extended release that was switched to Pentasa 1 g every 6 hour, as patient was unable to take mesalamine 4.8 g, as she is not used to swallowing tablets, and as it is extended release, it cannot be chewed. -Next infusion of skyrizy as scheduled -Follow-up with GI specialist Dr. Brad Krueger in [facility] after insurance authorization - Patient will be followed up in a month (2) Iron deficiency anemia: Status: Acute Assessment & Plan: - Patient reported doing much better, and denied any tiredness. - During discharge, her hemoglobin was 8.6, hematocrit 30.0, MCV 73. - Based on previous iron levels iron was at 7 and patient cannot tolerate oral iron and was not recommended by her research leader therefore will receive IV iron Plan: - Patient cannot tolerate oral iron therapy - IV iron therapy Feraheme ordered once every week for 2 weeks with [facility] care - Follow-up in a month Patient was seen and discussed with attending physician, MD Tristan Reyes MD, PGY 3 Office Procedures [facility] Level of Care Nursing/Assessment Patient Status: Established Patient Nursing Assessment/Reassessment: Medication Reconciliation, Update PMH in EMR and Vital Signs Coordination of Care: Complex Care and Chronic Disease 1-5, Consent,records obtained, informed consent, Results/Orders obtained and Staff clarify orders Established Patient Charge Established Patient Point Assignment: 75 Established Patient Point Charge: EP Level 2 (40-75)
== END 2025-04-24 13:42 | disposition home or self-care (01) ==
LOC: HODAHC 12:57
PROVIDERS: Supervising Provider Internal Medicine; Visit Provider Student in an Organized Health Care Education/Training Program
DX: K51.00 Ulcerative (chronic) pancolitis without complications (principal); D50.9 Iron deficiency anemia, unspecified
CPT/HCPCS: 99212; G0463

== ENCOUNTER 2025-06-17 06:10 | Emergency (ER) | payer MEDICAID, SELFPAY ==
[2025-06-17] VITALS (14 sets, daily range): BP systolic 101–116; BP diastolic 56–89; PULSE 61–105; RESP 15–20; TEMP 36.7–37.2; O2SAT 98–100; BMI 30.2
--- NOTE | 2025-06-17 06:53 | EDNOTE_ITS ---
ED Weakness RME/HPI General Chief complaint: Weakness Stated complaint: SENT FOR LOW HEMOGLOBIN, WEAK, NAUSEA, VOMITING Time Seen by Provider: 06/17/25 06:27 Arrival date/time: 06/17/25 06:10 RME / HPI RME / HPI Narrative: 24-year-old female with a history of ulcerative colitis diagnosed in March 2022 and multiple blood transfusions, most recently for a flare in April 2025, presents with small amounts of blood in stool since the end of May 2025 and daily episodes of nausea and vomiting. She reports generalized weakness but denies fever, change in stool habits otherwise, or shortness of breath. Her last menstrual period began on 2025-05-30 and lasted three days with only light bleeding. Patient has completed a one-month course of prednisone at the end of May and her pentasa dose was increased in April from 1g tid to 1g qid. Related Data Previous Rx's ?Medication ?Instructions ?Recorded ondansetron 4 mg disintegrating 4 mg PO Q8H PRN nausea and 11/04/24 tablet vomiting #20 tabs Held on 04/12/25. Instructions: Doctor's Order pantoprazole 40 mg granules 40 mg PO QDAY #30 ea 11/04 delayed-release for susp in packet (Protonix) Held on 04/12/25. Instructions: Doctor's Order mesalamine 500 mg capsule,extended 1,000 mg (2 x 500 m g) PO QID #240 04/24/25 release (Pentasa) caps Allergies Allergy/AdvReac Type Severity Reaction Status Date / Time infliximab-dyyb Allergy Severe Difficulty Verified 06/17/25 06:12 Breathing Review of Systems Review of Systems Systems Reviewed: All systems reviewed, normal except as documented Past Medical History Past Medical History GASTROINTESTINAL: Positive Gastrointestinal Disorders, Gastrointestinal Bleed, Colitis, Ulcerative Colitis, Irritable Bowel and Obesity REPRODUCTIVE: Positive Previous Pregnancies ENDOCRINE: Positive Endocrine Disorders and Hypothyroidism HEMATOLOGIC: Positive Blood Disorders and Anemia PSYCHO/SOCIAL: Positive Anxiety OTHER HISTORY: Positive Hospitalization and Blood Transfusions Surgical History SURGICAL: Positive Section Social History SMOKING STATUS: Never smoker SECOND HAND EXPOSURE: No SUBSTANCE USE: does not use ED Exam Narrative Physical exam: General: No acute distress; overall well appearing. Eyes: Appear normal; no scleral icterus. HENT: Normocephalic; atraumatic. Neck: Atraumatic; supple. Cardiac: Heart tones normal rhythm; very slight tachycardia to 105 with movement. Respiratory: Lungs clear bilaterally; no respiratory distress. Abdomen: Abdomen soft; nondistended; mild periumbilical tenderness; no rebound or guarding. Skin: No exanthems; no cyanosis; no diaphoresis. Psychological: Cooperative and participatory with examination. Course Quality Measures none Orders Category Date Time Status Insert IV STAT Care 06/17/25 06:52 Active Transfuse,blood/blood products NOW Care 06/17/25 07:24 Active Antibody Identification Stat Lab 06/17/25 06:37 Completed CBC Stat Lab 06/17/25 06:37 Completed Comprehensive Metabolic Panel Stat Lab 06/17/25 06:37 Completed HCG Qualitative,Urine Stat Lab 06/17/25 10:35 Completed Lipase Stat Lab 06/17/25 06:37 Completed Magnesium Stat Lab 06/17/25 06:37 Completed Type and Screen Stat Lab 06/17/25 06:37 Completed Urinalysis, C/S if Indicated Stat Lab 06/17/25 10:35 Completed prbc [Red Blood Cells] Stat Lab 06/17/25 06:37 Completed Vital Signs Vital signs: Vital Signs Temperature 98.3 F 06/17/25 06:25 Pulse Rate 105 H 06/17/25 06:25 Respiratory Rate 19 06/17/25 06:25 Blood Pressure 116/77 06/17/25 06:25 Pulse Oximetry (%) 99 06/17/25 06:25 Oxygen Delivery Method Room Air 06/17/25 06:25 Pulse ox is 99% on room air which is adequate. Weakness MDM Narrative MDM Narrative:: The patient presents with ulcerative colitis and ongoing gastrointestinal bleeding, supported by history of blood in stool since late May, mild periumbilical tenderness on exam, and a background of multiple transfusions this year, including one for a flare in April. Nausea and vomiting have occurred daily since onset, and generalized weakness is reported. Mild tachycardia to 105 with movement is noted, but no fever, change in stool habits, or respiratory symptoms. Pentasa dose was increased in April; prednisone completed at end of May. Last menstrual period was May 30 with light bleeding, reducing concern for gynecologic source. Differential includes Crohn disease, infectious colitis, iron deficiency anemia, medication-induced gastritis, and ischemic colitis. Will need continued GI follow-up with her physician - Dr. Michaud for further outpatient management after evaluation if deemed stable for discharge. Patient data External records reviewed:: [facility] previous records Clinical information provided by:: patient Social determinants that could affect healthcare access:: none Patient has the following chronic illnesses:: Ulcerative Colitis How is presenting disease/condition affected by chronic disease/condition?: caused by Evaluation data The following diagnostics were reviewed and interpreted by me:: lab results Lab and/or radiology exams considered but not ordered:: None Interpretation Summary: As noted above Medications / Prescriptions Medications or Prescriptions considered but not ordered:: None Medication administrations:: Blood transfusion No medications given Consultations Consultation(s) initiated? (list below): No Diagnosis Weakness Differential Diagnosis: other (Crohn disease, infectious colitis, iron deficiency anemia, medication-induced gastritis, and ischemic colitis) Most likely diagnosis given after review of the tests above:: Symptomatic anemia Ulcerative colitis Admission Indicated Admission indicated?: not indicated Explain why admission is indicated or not indicated:: With no condition needing emergent intervention, there was no indication for admission. Admission Request Was there a request for admission?: No Disposition Plan Disposition Plan: Discharge Discharge Attestation Discharge Attestation: The patient and all family members were given an opportunity to ask questions and understood the discharge instructions. Discharge instructions specifically effects, indications for sooner follow up or return to the emergency department, and the expected course of current diagnosis. Patient condition: Stable Discharge Plan Plan Patient Disposition: HOME (Self Care) Patient condition on transfer: Stable Prescriptions/Referrals Prescriptions/Med Rec: No Action pantoprazole [Protonix] [address] for susp in packet 40 mg PO QDAY Qty: 30 0RF ondansetron 4 mg tablet,disintegrating 4 mg PO Q8H PRN (Reason: nausea and vomiting) Qty: 20 0RF mesalamine [Pentasa] 500 mg capsule, extended release 1,000 mg PO QID Qty: 240 1RF Rx Instructions: The patient did not tolerate the previous Mesalamine 4.8g dosing as she cannot chew it, so, Pentasa. Referrals: No Primary/Family,Physician [Primary Care Provider] - In 1 week Problem List Clinical Impression: Symptomatic anemia, Ulcerative colitis Patient/Caregiver Discharge Instructions Diet Instructions: [place] diet Education Materials: Anemia, ED Diet, [place] (Adult), ED Ulcerative Colitis Additional Instructions: Call your automotive hardware engineer in the morning for close outpatient follow-up and touch base with your primary doctor for recheck in the next few days. Return to the emergency department for any worsening symptoms. Some general health principles that can help you are the [employer] principles: Nutrition (eat a plant-based diet, avoiding meats in general, avoiding highly processed foods) Exercise (Daily exercise/walks as tolerated) Water (Drink adequate fresh water to maintain hydration, concentrating on water rather than on soda, coffee, tea, juice, etc for hydration) [place] (Spend time - 15-20 minutes or so with skin exposed in the early childhood specialist and late evening sun for Vitamin D health benefits) [place] (Avoid alcohol, illicit drugs, caffeinated beverages, smoking, etc) Air (Deep breathing exercises in the early mornings in fresh air) Rest (Adequate rest at night, going to bed a few hours before midnight and avoiding all screens/television/loud music in the time right before going to bed, also avoiding heavy meals just prior to going to bed) Trust in God (Spend time daily in Bible study and prayer - health benefits in contemplation of God's true character) Additional resources that can benefit: [email or web address], look under r esources and seminars. Another good website is [email or web address].[email or web address].org Print Language: Bahamian Stand Alone Forms: [employer] Award Info., Patient Portal Info Letter
[2025-06-17 07:09] LABS: Basophils # (Auto) 0.0 Thou/mm3 (0.0-0.2); Basophils % (Auto) 1 % (0-2.5); Eosinophils # (Auto) 0.1 Thou/mm3 (0.0-0.5); Eosinophils % (Auto) 2 % (0-10); Hematocrit 25.3 % (36.0-46.0); Immature Granulocytes Auto 0.01 Thou/mm3 (0.00-0.00); Lymphocytes # (Auto) 1.4 Thou/mm3 (1.0-4.8); Lymphocytes % (Auto) 34 % (10-50); Mean Corpuscular HGB Conc 27.3 g/dl (31.0-37.0); Mean Corpuscular Hemoglobin 18.7 pg (25.0-35.0); Mean Corpuscular Volume 69 fL (80-100); Monocytes # (Auto) 0.6 Thou/mm3 (0.0-0.8); Monocytes % (Auto) 14 % (0-12); Neutrophils # (Auto) 2.0 Thou/mm3 (1.8-7.7); Neutrophils % (Auto) 49 % (37-80); Nucleated Red Blood Cell # 0.00 Thou/mm3 (0.00-0.00); Nucleated Red Blood Cell % 0 /100 WBC (0); Platelet Count 581 Thou/mm3 (140-440); RDW Standard Deviation 43.8 fL (36.4-46.3); Red Blood Count 3.69 Miln/mm3 (4.00-5.20); White Blood Count 4.0 Thou/mm3 (3.6-11.0)
[2025-06-17 07:11] LABS: Hemoglobin 6.9 g/dL (12.0-16.0)
[2025-06-17 07:43] LABS: Alanine Aminotransferase 8 U/L (10-49); Albumin, Serum 3.8 gm/dL (3.5-5.0); Albumin/Globulin Ratio 1.3 (1.2-2.2); Alkaline Phosphatase 85 U/L (46-116); Anion Gap 8 (7-16); Aspartate Amino Transferase 33 U/L (0-34); BUN/Creatinine Ratio 7 Ratio (12-20); Bilirubin,Total 0.5 mg/dL (0.3-1.2); Blood Urea Nitrogen < 5 mg/dL (9-23); Calcium 8.6 mg/dL (8.3-10.6); Calcium (Corrected) 8.8 mg/dL (8.5-10.1); Carbon Dioxide 27.0 mMol/L (20.0-31.0); Chloride 107 mMol/L (98-107); Creatinine (Component) 0.7 mg/dL (0.6-1.3); Estimated Creatinine Clearance 150.5 mL/min (>60); Globulin 3.0 gm/dL (2.3-3.5); Glucose 90 mg/dL (74-106); Lipase 31 U/L (12-53); Magnesium 2.0 mg/dL (1.6-2.6); Osmolality,Calculated 280 (275-295); Potassium 3.8 mMol/L (3.4-5.1); Sodium 142 mMol/L (136-145); Total Protein 6.8 gm/dL (5.7-8.2); eGFR > 60 See Note
[2025-06-17 10:48] LABS: Collection Type, Urine Clean Catch
[2025-06-17 11:04] LABS: Bacteria,Urine Rare; Bilirubin,Urine Negative (Negative); Blood,Urine Negative (Negative); Color,Urine Yellow (Lt Yel-Yel); Culture Indicated,Urine Not Indicated; Glucose, Urine Negative (Negative); Ketones,Urine Negative (Negative); Leukocyte Esterase,Urine Negative (Negative); Nitrite,Urine Negative (Negative); PH,Urine 6.5 (5.0-7.0); Protein,Urine Trace (Neg - Trace); RBC,Urine 6 /hpf (0-3); Specific Gravity,Urine 1.016 (1.001-1.035); Squamous Epithelial Cell,Urine 7 /hpf (0-5); Urobilinogen,Urine Negative mg/dL (0.0-1.0); WBC,Urine 4 /hpf (0-5)
[2025-06-17 11:07] LABS: Clarity,Urine Hazy (Clear/Hazy)
[2025-06-17 11:21] LABS: HCG Qualitative,Urine Negative
== END 2025-06-17 16:53 | disposition home or self-care (01) ==
PROVIDERS: Emergency Provider Family Medicine
DX: K51.911 Ulcerative colitis, unspecified with rectal bleeding (principal); D64.9 Anemia, unspecified
CPT/HCPCS: 36415; 80053; 81001; 81025; 83690; 83735; 85025; 86850; 86870; 86900; 86901; 86902; 86921; 86922; 99283; P9016